=== PATIENT | male | born 1965 | race Caucasian/White ===

== ENCOUNTER 2017-10-06 13:13 | Day surgery (SDC) | payer SELFPAY ==
[2017-10-06] VITALS (9 sets, daily range): BP systolic 116–168; BP diastolic 80–105; PULSE 82–107; RESP 16–18; TEMP 36.5–37.1; O2SAT 93–98; BMI 24.3
--- NOTE | 2017-10-06 14:04 | ED.VISSUMM ---
- ER Visit Summary Date of Service: 10/06/17 Chief Complaint: Penile pain and swelling History of Present Illness: The patient is a 52 M no senior past medical history other than a prior appendectomy. Prior circumcision. Patient states that he had rough sex with his about 3 days ago. Several hours after he started developing penile pain, swelling, bruising and blistering. He denies any discharge. States he has been as well as 35 years and he knows he has been little to her and think she tomorrow to him. He states it is very painful to touch. He denies any other recent trauma. Or prior history of anything like this. He is on no blood thinners. He did use a condom. Physical Examination: Well-appearing male. Vital signs are stable afebrile. HEENT exam unremarkable. Lungs clear to auscultation. Heart regular rhythm no murmur. Abdomen soft and nontender normal bowel sounds no peritoneal signs. External exam circumcised male very swollen, tender, bruised penile shaft with some clear blistering. The testicles and scrotum are nontender. No masses. There is no discharge. No bleeding. He is moving all 4 extremities. They are neurovascularly intact. Neurologic exam is normal. Test Results: None Emergency Department Course and Treatment: Treated with IV morphine and Zofran. Treatment Plan: I spoke to Dr. Johnson and the patient will go to the OR for repair. Disposition: Discharge Impression: Acute penile pain and swelling secondary to penile fracture This note was generated with [employer] dictation software. It may contain incorrect words, spelling, and punctuation that were not noted in review of the chart prior to signing ED Disposition - Plan for ED Patient: Chief Complaint: Male Pain/Injury Referrals: Care Physician,No Primary [Primary Care Provider] -
[2017-10-06] MEDS: Ondansetron 4 MG/2 ML Vial IV (14:24)
[2017-10-06] MEDS: morphine 8 MG/ML Syringe 6 MG IV (14:24)
[2017-10-06 14:36] LABS: Absolute Lymphocyte Count 2.31 X10^3/ul (0.83-4.51); Absolute Neutrophil Count 8.6 X10^3/uL (2.0-7.7); Basophil# 0.04 X10^3/uL; Basophil% 0.3 % (0-1); Eosinophil# 0.19 X10^3/uL; Eosinophils% 1.6 % (0-5); Hematocrit 42.4 % (40-54); Lymphocyte # 2.31 X10^3/ul (4.0); Lymphocyte % 18.9 % (19-41); Mean Corpuscular Hgb 32.6 pg (27.0-32.0); Mean Corpuscular Volume 98.6 fL (80-94); Mean Platelet Vol. 9.8 fl (6.2-12.0); Monocyte# 1.03 X10^3/uL; Monocyte% 8.4 % (0-10); Neutrophil # 8.62 X10^3/uL (2.7-7.7); Neutrophil % 70.7 % (47-70); Platelet Count 256 K/mm3 (150-450); RBC Distribution Width CV 12.9 % (11.6-14.6); RBC Distribution Width SD 46.1 fl (35.1-43.9); White Blood Count 12.2 K/mm3 (4.4-11.0)
[2017-10-06 14:39] LABS: POSITIVE COUNT NO; POSITIVE DIFFERENTIAL NO; POSITIVE MORPHOLOGY NO
[2017-10-06 14:45] LABS: Anion Gap 8 (5-15); BUN 11 mg/dL (7-18); BUN/Creat Ratio 10.1 RATIO (10-20); Calcium,Total 8.8 mg/dL (8.5-10.1); Chloride 103 mmol/L (98-107); Creatinine, Serum 1.09 mg/dL (0.70-1.30); EST Glomerular Filtration Rate 75 mL/min (>60); Est Glom Filt Rate - Afr Amer 91 mL/min (>60); Estimated Creatinine Clearance 80.93 ml/min; Glucose 101 mg/dL (74-106); Potassium 4.3 mmol/L (3.5-5.1); Sodium Level 140 mmol/L (136-145)
--- NOTE | 2017-10-06 16:53 | PCM.CONS.U ---
Reason for Consult Date of Consultation: 10/06/17 Reason for Consultation: Penile trauma during intercourse History of Present Illness: The patient is a 52 year old male who presented to the emergency room about 2-1/2 days ago described having rough sex with his partner and then after this developed a lot of swelling and pain in the penis and he has a lot of bruising and very tender penis does not want to be examined on exam the penis very swollen I suspect these had a fracture of the penile cavernosal bodies. I recommended we proceed with surgical exploration with a degloving of the penis and repair of injury if found. He understands the risk of developing erectile dysfunction as a result of the trauma from the rough sex is also a risk with the surgery causing erectile dysfunction. He was under the understanding without surgery he also takes a risk of developing erectile dysfunction if there is a rupture to the cavernosal body without having it repaired. After weighing his options he is agreed to undergo surgical exploration degloving of the penis and hopefully repair of a suspected cavernosal injury again I really could not do it good exam because he is super tender. Past Medical History Allergies No Known Allergies Allergy (Verified 10/06/17 13:17) Home Medications: Ambulatory Orders Medication Instructions Recorded NK [NK] 10/06/17 Surgical History: no surgical history Lives: Spouse/ Significant Other Smoking Status: Current every day smoker Tobacco Use: Cigarettes Alcohol: None Drugs: None - *Family History Maternal History Items: No pertinent history Review of Systems Constitutional: Denies: Chills, Fever, Weight Change HEENT: Denies: Head Aches, Sinus Congestion, Sinus Drainage Cardiovascular: Denies: Chest Pain, Palpitations Respiratory: Denies: Cough, Shortness of breath at rest, Sputum production Gastrointestinal: Denies: Abdominal Pain, Nausea, Vomiting Genitourinary: Denies: Dysuria Musculoskeletal: Denies: Joint Pain, Joint Tenderness Skin: Denies: Rash, Wounds Neurological: Denies: Numbness, Tingling, Focal weakness Psychiatric: Denies: Anxiety, Depression, Homicidal Ideations, Suicidal Ideations Hematologic/ Lymphatic: Denies: Easy Bruising, Easy Bleeding Physical Exam - Physical Exam Vital Signs Temp 98.1 F 10/06/17 13:14 Pulse 84 10/06/17 14:41 Resp 16 10/06/17 14:41 BP 145/97 H 10/06/17 14:41 Pulse Ox 97 10/06/17 14:41 Intake & Output 10/04/17 10/05/17 10/06/17 23:59 23:59 23:59 Weight: 77.111 kg General: Alert, Oriented x3 HEENT: Atraumatic Oral: Moist Mucosa Neck: Supple Lungs: Normal air movement Cardiovascular: Regular rate Abdomen: Soft, Obese Rectal: Exam deferred Penis: Circumcised, - - Penis is swollen and very tender and ecchymotic with bruising Groin: No hernia Extremities: No clubbing, No cyanosis, No edema Skin: No rashes Laboratory Tests Past 24 Hrs 10/06/17 10/06/17 14:20 14:20 WBC 12.2 H RBC 4.30 L Hgb 14.0 Hct 42.4 MCV 98.6 H MCH 32.6 H MCHC 33.0 RDW 12.9 RDW Differential 46.1 H Plt Count 256 MPV 9.8 Immature Gran % (Auto) 0.100 Neut % (Auto) 70.7 H Lymph % (Auto) 18.9 L [place] % (Auto) 8.4 Eos % (Auto) 1.6 Baso % (Auto) 0.3 Absolute Neuts (auto) 8.6 H Absolute Lymphs (auto) 2.31 Total Counted Not Reportable Sodium 140 Potassium 4.3 Chloride 103 Carbon Dioxide 29.0 Anion Gap 8 BUN 11 Creatinine 1.09 Estim Creat Clear Calc 80.93 Est GFR (MDRD) Af Amer 91 Est GFR (MDRD) Non-Af 75 BUN/Creatinine Ratio 10.1 Glucose 101 Calcium 8.8 Assessment/Plan 52-year-old male with suspected penile fracture penile injury during intercourse planted taken today to surgery for exploration degloving and hopefully repair of cavernosal injury if discovered. He will be discharged home and he will follow-up in the office after the procedure.
[2017-10-06] MEDS: Tamsulosin HCl 0.4 MG Capsule 1.6 MG PO (17:30)
[2017-10-06] MEDS: Cefazolin 2 GM in 0.9% Normal Saline 100 ML IV (18:04)
--- NOTE | 2017-10-06 18:04 | PCM.DC.URO ---
Discharge Diet: Light diet - advance as tolerated Return to work on:: 10/18/17 May shower in (days): 1 May resume sexual activity in: - - NO intercourse Call your doctor if your incision/area has: Continuous Slow Oozing, Sudden Increased Bleeding, Increased Pain/ Swelling, Increased Redness, Foul Smelling Discharge, Swelling at the incision site Suture Line Care: Avoid Pulling/Pushing, Avoid Pinching/Bending Allergies/Adverse Reactions: Allergies No Known Allergies Allergy (Verified 10/06/17 13:17) Medications to take at Discharge Cephalexin [Keflex] 500 mg PO TID #15 cap 10/06/17 Hydrocodone/Acetaminophen [[place] 5-325 Tablet] 1 ea PO Q4H PRN PRN 5 Days #20 tab 10/06/17 The following prescriptions were given: Hydrocodone/Acetaminophen [[place] 5-325 Tablet] 1 ea PO Q4H PRN PRN 5 Days #20 tab PRN Reason: Pain Cephalexin [Keflex] 500 mg PO TID #15 cap Primary Care Physician: Care Physician,No Primary [Primary Care Provider] - Test Results: Test results from this visit will be discussed in further detail at your follow-up appointment, if applicable. Please Follow Up With: Woo Johnson MD When: in 2 weeks, please call to make an appointment.
--- NOTE | 2017-10-06 18:41 | PCM.OPRPT ---
Report of Operation Date of Procedure: 10/06/17 Pre-Operative Diagnosis: Penile trauma and swollen penis suspected penile fracture Post-Operative Diagnosis: Same, no penile fracture Surgery/Procedure Performed:: Exploration of the penis Description of Surgical Findings:: 52-year-old male who described having's rough sex several days ago penis became extremely swollen some ecchymosis on the side of the penis shaft there was concern for fracture the penis so recommended we do exploration. Patient taken back to the operating room after smooth induction of general anesthesia the penis and testicles were prepped and draped in usual sterile fashion, made a circumcision incision dissected down to the tunica and and peeled the skin off the penis to do a degloving inspected the spongiosa tissue where the urethra was put a catheter and there is no injury or trauma here inspected the to continue the 2 tunica bodies and both of them were intact with no trauma fracture injury no hematoma. After expiration was completed then I squeeze out some of the edema and the skin really attach the force of the shaft of the circumcision line he has had a prior circumcision with running suture with chromic after the that was placed in a wrap the penis with gauze and anesthetic is currently being reversed he can follow-up in the office for checkup and will give instructions to the and the family. Type of Anesthesia:: General - Admit VTE Documentation VTE Present on Admission: No VTE Mechan Device Prophylaxis: SCD's
[2017-10-06] MEDS: HYDROcodone Bitartrate/Apap 5/325 Tablet PO (19:52)
== END 2017-10-06 22:26 | disposition home or self-care (01) ==
LOC: ED 14:43 → AC 14:52
PROVIDERS: Emergency Provider Emergency Medicine; Visit Provider Urology
PROC: (CPT 54435; principal; 2017-10-06 09:30)
DX: S39.94XA Unspecified injury of external genitals, initial encounter (principal); X58.XXXA Exposure to other specified factors, initial encounter; Y93.89 Activity, other specified; Y92.9 Unspecified place or not applicable; Y99.8 Other external cause status; F17.210 Nicotine dependence, cigarettes, uncomplicated
CPT/HCPCS: 55899; 80048; 85025; 99284; J7120; A4216; J2405

== ENCOUNTER 2017-10-12 22:32 | Observation (INO) | payer SELFPAY ==
[2017-10-12 22:34] VITALS: BP 120/75; PULSE 117; RESP 18; TEMP 35.8; O2SAT 98; BMI 22.8
--- NOTE | 2017-10-12 23:14 | EKG12_ITS ---
Test Reason : CELLULITIS Blood Pressure : / mmHG Vent. Rate : 104 BPM Atrial Rate : 104 BPM P-R Int : 130 ms QRS Dur : 090 ms QT Int : 354 ms P-R-T Axes : 070 083 059 degrees QTc Int : 465 ms Sinus tachycardia Otherwise normal ECG Confirmed by RICK GRIFFIN ([id number]), manuscript editor LAUREN WILSON ([id number]) on 10/19/2017 2:02:56 PM Referred By: SRIRAM Confirmed By:RICK GRIFFIN
--- NOTE | 2017-10-12 23:15 | ED.VISSUMM ---
- ER Visit Summary Date of Service: 10/12/17 Chief Complaint: Concern for penis infection History of Present Illness: The patient is a 52 M who presents for concern for a penis infection. 1 week ago patient began having swelling and bruising with pain to his penis. He was seen 2 days later, with concern for possible penile fracture from rough sex with his . He went to surgery, and urology found no evidence of a penile fracture. He has been on Keflex since then and also pain medications. Patient states he is started being able to pee comfortably recently, but today his penis is very swollen and feels like there are insects crawling on it. Last night he put coconut oil and olive oil on it which helped. He was seen at [facility] earlier this week for the same complaint with concern for infection but states he was discharged with instructions to follow-up with Dr. Johnson. Patient denies any fever, abdominal pain or other complaints other than continued penile pain and swelling. He denies any scrotal pain, thigh pain, perineal pain. Patient denies history of diabetes. Physical Examination: Vital signs: afebrile, hemodynamically stable, no hypoxia on room air General: well nourished, well developed, in no distress Skin: warm, dry, no rash, no pallor HEENT: normocephalic and atraumatic; PERRL, EOMI, moist mucous membranes Cardiovascular: regular rate and rhythm without murmurs, no peripheral edema, 2+ pulses all distal extremities Respiratory: No increased work of breathing, lungs are clear to auscultation bilaterally, no rales, rhonchi or wheezing Abdominal: Abdomen is soft, nontender with normoactive bowel sounds, no guarding or rebound, no masses : Leon V stage external genitalia, large edematous swelling to the inferior distal shaft proximal to the glans, sutures in place along the base of the glans without any erythema or induration. Area of ulcerated tissue with granulation tissue over it on the left lateral shaft, possible central necrosis. Penis is diffusely tender. Patient has a few small blood-filled papules along the vasculature of the scrotum. Nontender. No scrotal erythema, induration or swelling. No scrotal tenderness. No abnormalities noted to the perineum or inner thighs. Patient has bilateral mildly tender inguinal lymphadenopathy. No suprapubic tenderness or fullness. MSK: Moves all extremities, no deformities, normal strength Neuro: Awake and alert, oriented ?4. No facial droop, sensation and motor function intact and symmetric Test Results: ] Abnormal Lab Results 10/12/17 10/12/17 10/12/17 23:35 23:35 23:35 WBC 8.3 RBC 4.35 L Hgb 14.7 Hct 42.2 MCV 97.0 H MCH 33.8 H MCHC 34.8 RDW 12.1 RDW Differential 42.5 Plt Count 412 MPV 8.7 Immature Gran % (Auto) 0.100 Neut % (Auto) 54.1 Lymph % (Auto) 31.3 [place] % (Auto) 8.7 Eos % (Auto) 4.6 Baso % (Auto) 1.2 H Absolute Neuts (auto) 4.5 Absolute Lymphs (auto) 2.58 Total Counted Not Reportable PT 13.2 INR 1.0 APTT 29.7 Sodium 140 Potassium 3.7 Chloride 103 Carbon Dioxide 29.0 Anion Gap 8 BUN 16 Creatinine 1.26 Estim Creat Clear Calc 69.43 Est GFR (MDRD) Af Amer 77 Est GFR (MDRD) Non-Af 64 BUN/Creatinine Ratio 12.7 Glucose 126 H Lactic Acid Calcium 8.6 Total Bilirubin 0.20 AST 19 ALT 23 Alkaline Phosphatase 65 Total Protein 7.5 Albumin 3.3 Globulin 4.2 Albumin/Globulin Ratio 0.8 L Urine Color Urine Clarity Urine pH Ur Specific [place] Urine Protein Urine Glucose (UA) Urine Ketones Urine Occult Blood Urine Nitrite Urine Bilirubin Urine Urobilinogen Ur Leukocyte Esterase Urine RBC Urine WBC Ur Squamous Epith Cells Urine Bacteria Hyaline Casts Urine Mucus 10/12/17 10/13/17 23:35 00:34 WBC RBC Hgb Hct MCV MCH MCHC RDW RDW Differential Plt Count MPV Immature Gran % (Auto) Neut % (Auto) Lymph % (Auto) [place] % (Auto) Eos % (Auto) Baso % (Auto) Absolute Neuts (auto) Absolute Lymphs (auto) Total Counted PT INR APTT Sodium Potassium Chloride Carbon Dioxide Anion Gap BUN Creatinine Estim Creat Clear Calc Est GFR (MDRD) Af Amer Est GFR (MDRD) Non-Af BUN/Creatinine Ratio Glucose Lactic Acid 2.0 Calcium Total Bilirubin AST ALT Alkaline Phosphatase Total Protein Albumin Globulin Albumin/Globulin Ratio Urine Color Yellow Urine Clarity Clear Urine pH 6.5 Ur Specific [place] 1.020 Urine Protein 15 H Urine Glucose (UA) Normal Urine Ketones 5 H Urine Occult Blood Negative Urine Nitrite Negative Urine Bilirubin Negative Urine Urobilinogen Normal Ur Leukocyte Esterase 25 H Urine RBC 0 SEEN Urine WBC 0-5 SEEN Ur Squamous Epith Cells 0-5 SEEN Urine Bacteria 0 SEEN Hyaline Casts 0-5 SEEN Urine Mucus 1+ Clinical Impression(s) from Imaging Studies Chest X-Ray 10/12/17 23:20 IMPRESSION: Probable COPD without acute cardiopulmonary disease. Electronically Signed: Luis Abreu DO at 23:29 EDT Tel [phone], Service support , Medications Given Sodium Chloride () 1,000 mls @ 250 mls/hr IV .Q4H BOONE Last Admin: 10/13/17 01:43 Dose: 250 mls/hr Admin: 10/12/17 23:50 Dose: 250 mls/hr Discontinued Medications Ceftriaxone Sodium (Rocephin) 1 gm in 50 mls @ 100 mls/hr IV X1 ONE Stop: 10/13/17 01:46 Last Admin: 10/13/17 01:42 Dose: 100 mls/hr Ibuprofen (Motrin) 800 mg PO X1 ONE Stop: 10/13/17 00:37 Last Admin: 10/13/17 00:44 Dose: 800 mg Morphine Sulfate () 4 mg IV X1 ONE Stop: 10/12/17 23:16 Last Admin: 10/12/17 23:51 Dose: 4 mg Ondansetron HCl (Zofran) 4 mg IV X1 ONE Stop: 10/12/17 23:16 Last Admin: 10/12/17 23:50 Dose: 4 mg Emergency Department Course and Treatment: Patient presents for worsening of penile symptoms 1 week after initial bruising and swelling, concerned that he has an infection. Patient does have significant tenderness and areas of ulceration that look like granulation tissue, one with a possibly necrotic center. Sepsis workup was performed and blood cultures were obtained. CBC showed no leukocytosis. BMP was unremarkable, urinalysis negative for infection. Lactate was elevated at 2.0. Patient did not meet SIRS criteria and the potential infection seemed isolated to the penis. Thus patient was not treated per sepsis protocol. Chest x-ray showed no acute changes. Patient was given more morphine and Zofran for symptomatically relief as well as IV hydration. On reevaluation pain was well-controlled and his heart rate had improved. He was discussed with Dr. Johnson regarding his worsening of his symptoms, and it was determined patient would be admitted for IV antibiotics and further consultation with urology and possibly infectious disease. Patient was discussed with the hospitalist for admission. Given the location of patient's complaint and the possible penile infection with the area of central necrosis, coverage was broadened to cover patient for necrotizing fasciitis. Patient agreed with admission and symptoms were improved at time of reevaluation. Treatment Plan: [] Disposition: [] Impression: Penile pain with concern for infection This note was generated with [employer] dictation software. It may contain incorrect words, spelling, and punctuation that were not noted in review of the chart prior to signing ED Disposition - Plan for ED Patient: Chief Complaint: Cellulitis Referrals: Care Physician,No Primary [Primary Care Provider] -
--- NOTE | 2017-10-12 23:19 | ED.DCSUM_ITS ---
- ER Visit Summary Date of Service: 10/12/17 Chief Complaint: Concern for penis infection History of Present Illness: The patient is a 52 M who presents for concern for a penis infection. 1 week ago patient began having swelling and bruising with pain to his penis. He was seen 2 days later, with concern for possible penile fracture from rough sex with his . He went to surgery, and urology found no evidence of a penile fracture. He has been on Keflex since then and also pain medications. Patient states he is started being able to pee comfortably recently, but today his penis is very swollen and feels like there are insects crawling on it. Last night he put coconut oil and olive oil on it which helped. He was seen at [facility] earlier this week for the same complaint with concern for infection but states he was discharged with instructions to follow-up with Dr. Johnson. Patient denies any fever, abdominal pain or other complaints other than continued penile pain and swelling. He denies any scrotal pain, thigh pain, perineal pain. Patient denies history of diabetes. Physical Examination: Vital signs: afebrile, hemodynamically stable, no hypoxia on room air General: well nourished, well developed, in no distress Skin: warm, dry, no rash, no pallor HEENT: normocephalic and atraumatic; PERRL, EOMI, moist mucous membranes Cardiovascular: regular rate and rhythm without murmurs, no peripheral edema, 2 + pulses all distal extremities Respiratory: No increased work of breathing, lungs are clear to auscultation bilaterally, no rales, rhonchi or wheezing Abdominal: Abdomen is soft, nontender with normoactive bowel sounds, no guarding or rebound, no masses : Leon V stage external genitalia, large edematous swelling to the inferior distal shaft proximal to the glans, sutures in place along the base of the glans without any erythema or induration. Area of ulcerated tissue with granulation tissue over it on the left lateral shaft, possible central necrosis. Penis is diffusely tender. Patient has a few small blood-filled papules along the vasculature of the scrotum. Nontender. No scrotal erythema, induration or swelling. No scrotal tenderness. No abnormalities noted to the perineum or inner thighs. Patient has bilateral mildly tender inguinal lymphadenopathy. No suprapubic tenderness or fullness. MSK: Moves all extremities, no deformities, normal strength Neuro: Awake and alert, oriented ?4. No facial droop, sensation and motor function intact and symmetric Test Results: ] Abnormal Lab Results 10/12/17 10/12/17 10/12/17 23:35 23:35 23:35 WBC 8.3 RBC 4.35 L Hgb 14.7 Hct 42.2 MCV 97.0 H MCH 33.8 H MCHC 34.8 RDW 12.1 RDW Differential 42.5 Plt Count 412 MPV 8.7 Immature Gran % (Auto) 0.100 Neut % (Auto) 54.1 Lymph % (Auto) 31.3 [place] % (Auto) 8.7 Eos % (Auto) 4.6 Baso % (Auto) 1.2 H Absolute Neuts (auto) 4.5 Absolute Lymphs (auto) 2.58 Total Counted Not Reportable PT 13.2 INR 1.0 APTT 29.7 Sodium 140 Potassium 3.7 Chloride 103 Carbon Dioxide 29.0 Anion Gap 8 BUN 16 Creatinine 1.26 Estim Creat Clear Calc 69.43 Est GFR (MDRD) Af Amer 77 Est GFR (MDRD) Non-Af 64 BUN/Creatinine Ratio 12.7 Glucose 126 H Lactic Acid Calcium 8.6 Total Bilirubin 0.20 AST 19 ALT 23 Alkaline Phosphatase 65 Total Protein 7.5 Albumin 3.3 Globulin 4.2 Albumin/Globulin Ratio 0.8 L Urine Color Urine Clarity Urine pH Ur Specific [place] Urine Protein Urine Glucose (UA) Urine Ketones Urine Occult Blood Urine Nitrite Urine Bilirubin Urine Urobilinogen Ur Leukocyte Esterase Urine RBC Urine WBC Ur Squamous Epith Cells Urine Bacteria Hyaline Casts Urine Mucus 10/12/17 10/13/17 23:35 00:34 WBC RBC Hgb Hct MCV MCH MCHC RDW RDW Differential Plt Count MPV Immature Gran % (Auto) Neut % (Auto) Lymph % (Auto) [place] % (Auto) Eos % (Auto) Baso % (Auto) Absolute Neuts (auto) Absolute Lymphs (auto) Total Counted PT INR APTT Sodium Potassium Chloride Carbon Dioxide Anion Gap BUN Creatinine Estim Creat Clear Calc Est GFR (MDRD) Af Amer Est GFR (MDRD) Non-Af BUN/Creatinine Ratio Glucose Lactic Acid 2.0 Calcium Total Bilirubin AST ALT Alkaline Phosphatase Total Protein Albumin Globulin Albumin/Globulin Ratio Urine Color Yellow Urine Clarity Clear Urine pH 6.5 Ur Specific [place] 1.020 Urine Protein 15 H Urine Glucose (UA) Normal Urine Ketones 5 H Urine Occult Blood Negative Urine Nitrite Negative Urine Bilirubin Negative Urine Urobilinogen Normal Ur Leukocyte Esterase 25 H Urine RBC 0 SEEN Urine WBC 0-5 SEEN Ur Squamous Epith Cells 0-5 SEEN Urine Bacteria 0 SEEN Hyaline Casts 0-5 SEEN Urine Mucus 1+ Clinical Impression(s) from Imaging Studies Chest X-Ray 10/12/17 23:20 IMPRESSION: Probable COPD without acute cardiopulmonary disease. Electronically Signed: Luis Abreu DO at 23:29 EDT Tel [phone], Service support , Medications Given Sodium Chloride () 1,000 mls @ 250 mls/hr IV .Q4H BOONE Last Admin: 10/13/17 01:43 Dose: 250 mls/hr Admin: 10/12/17 23:50 Dose: 250 mls/hr Discontinued Medications Ceftriaxone Sodium (Rocephin) 1 gm in 50 mls @ 100 mls/hr IV X1 ONE Stop: 10/13/17 01:46 Last Admin: 10/13/17 01:42 Dose: 100 mls/hr Ibuprofen (Motrin) 800 mg PO X1 ONE Stop: 10/13/17 00:37 Last Admin: 10/13/17 00:44 Dose: 800 mg Morphine Sulfate () 4 mg IV X1 ONE Stop: 10/12/17 23:16 Last Admin: 10/12/17 23:51 Dose: 4 mg Ondansetron HCl (Zofran) 4 mg IV X1 ONE Stop: 10/12/17 23:16 Last Admin: 10/12/17 23:50 Dose: 4 mg Emergency Department Course and Treatment: Patient presents for worsening of penile symptoms 1 week after initial bruising and swelling, concerned that he has an infection. Patient does have significant tenderness and areas of ulceration that look like granulation tissue, one with a possibly necrotic center. Sepsis workup was performed and blood cultures were obtained. CBC showed no leukocytosis. BMP was unremarkable, urinalysis negative for infection. Lactate was elevated at 2.0. Patient did not meet SIRS criteria and the potential infection seemed isolated to the penis. Thus patient was not treated per sepsis protocol. Chest x-ray showed no acute changes. Patient was given more morphine and Zofran for symptomatically relief as well as IV hydration. On reevaluation pain was well-controlled and his heart rate had improved. He was discussed with Dr. Johnson regarding his worsening of his symptoms, and it was determined patient would be admitted for IV antibiotics and further consultation with urology and possibly infectious disease. Patient was discussed with the hospitalist for admission. Given the location of patient 's complaint and the possible penile infection with the area of central necrosis , coverage was broadened to cover patient for necrotizing fasciitis. Patient agreed with admission and symptoms were improved at time of reevaluation. Treatment Plan: [] Disposition: [] Impression: Penile pain with concern for infection This note was generated with [employer] dictation software. It may contain incorrect words, spelling, and punctuation that were not noted in review of the chart prior to signing ED Disposition - Plan for ED Patient: Chief Complaint: Cellulitis Referrals: Care Physician,No Primary [Primary Care Provider] -
--- NOTE | 2017-10-12 23:19 | NURSING ---
NO OLD EKG
[2017-10-12 23:47] LABS: Absolute Lymphocyte Count 2.58 X10^3/ul (0.83-4.51); Absolute Neutrophil Count 4.5 X10^3/uL (2.0-7.7); Basophil% 1.2 % (0-1); Eosinophil# 0.38 X10^3/uL; Eosinophils% 4.6 % (0-5); Hematocrit 42.2 % (40-54); Hemoglobin 14.7 g/dl (13.0-16.5); Lymphocyte # 2.58 X10^3/ul (4.0); Lymphocyte % 31.3 % (19-41); Mean Corp Hgb Conc 34.8 g/gl (32-36); Mean Corpuscular Hgb 33.8 pg (27.0-32.0); Mean Platelet Vol. 8.7 fl (6.2-12.0); Monocyte# 0.72 X10^3/uL; Monocyte% 8.7 % (0-10); Neutrophil # 4.46 X10^3/uL (2.7-7.7); Neutrophil % 54.1 % (47-70); Platelet Count 412 K/mm3 (150-450); RBC Distribution Width CV 12.1 % (11.6-14.6); RBC Distribution Width SD 42.5 fl (35.1-43.9); Red Blood Count 4.35 M/mm3 (4.6-6.2); White Blood Count 8.3 K/mm3 (4.4-11.0)
[2017-10-12] MEDS: Ondansetron 4 MG/2 ML Vial IV (23:50)
[2017-10-12] MEDS: 0.9% Normal Saline 1,000 ML 250 ML IV (23:50)
[2017-10-12] MEDS: Morphine 4 MG/ML Syringe IV (23:51)
[2017-10-12 23:53] LABS: POSITIVE COUNT NO; POSITIVE DIFFERENTIAL NO; POSITIVE MORPHOLOGY NO
[2017-10-12 23:55] LABS: Prothrombin Time (Protime)PT. 13.2 SECONDS (11.7-14.9)
[2017-10-12 23:56] LABS: Partial Thromboplast Time 29.7 Seconds (24.1-36.2)
[2017-10-12 23:57] VITALS: TEMP 36.8
[2017-10-13] VITALS (8 sets, daily range): BP systolic 134–153; BP diastolic 90–104; PULSE 86–99; RESP 13–18; TEMP 36.6–36.9; O2SAT 96–98; BMI 22.9; BMI 23.0
[2017-10-13 00:03] LABS: ALB/GLOB Ratio 0.8 RATIO (0.9-2.4); AST(SGOT) 19 U/L (15-37); Alanine Aminotransfer ALT/SGPT 23 U/L (16-61); Albumin, Serum 3.3 g/dL (3.2-5.0); Alkaline Phosphatase 65 U/L (45-117); Anion Gap 8 (5-15); BUN 16 mg/dL (7-18); BUN/Creat Ratio 12.7 RATIO (10-20); Calcium,Total 8.6 mg/dL (8.5-10.1); Chloride 103 mmol/L (98-107); Creatinine, Serum 1.26 mg/dL (0.70-1.30); EST Glomerular Filtration Rate 64 mL/min (>60); Est Glom Filt Rate - Afr Amer 77 mL/min (>60); Estimated Creatinine Clearance 69.43 ml/min; Globulin 4.2 g/dL (2.2-4.2); Glucose 126 mg/dL (74-106); Potassium 3.7 mmol/L (3.5-5.1); Protein, Total 7.5 g/dL (6.4-8.2); Sodium Level 140 mmol/L (136-145)
--- NOTE | 2017-10-13 00:28 | ED.RN ---
PT LACTIC 2.0. DR. BHATIA INFORMED.
[2017-10-13 00:37] LABS: Bacteria 0 SEEN /hpf (None Seen); Red Blood Cells-Urine 0 SEEN /hpf (0-5)
[2017-10-13 00:39] LABS: Color, Urine Yellow (Yellow); Glucose, Dipstick Normal (Normal); Ketone-Dipstick 5 mg/dl (Negative); Leukocyte Esterase-Dipstick 25 /ul (Negative); Nitrite-Dipstick Negative (Negative); Occult Blood-Urine Negative /ul (Negative); Protein-Dipstick 15 mg/dl (Negative); Urine Bilirubin Dipstick Negative (Negative); Urine Clarity Clear (Clear); Urine Urobilinogen Normal (Normal); Urine pH 6.5 (5.0 - 8.0)
[2017-10-13 00:44] LABS: Hyaline Cast 0-5 SEEN /lpf (0-5); Mucous, Urine 1+ /hpf (<or=2+); Squamous Epithelial Cells - UA 0-5 SEEN /hpf (0-5); White Blood Cells 0-5 SEEN /hpf (0-5)
[2017-10-13] MEDS: Ibuprofen 200 MG Tablet 800 MG PO (00:44)
[2017-10-13] MEDS: Ceftriaxone 1 GM/50 ML BAG IV (01:42)
[2017-10-13] MEDS: 0.9% Normal Saline 1,000 ML 250 ML IV (01:43)
--- NOTE | 2017-10-13 01:55 | PCM.HP.STD ---
Problem List (1) Penile swelling Status: Acute (2) Hypertension Status: Chronic History of Present Illness Date of Admission: 10/13/17 Chief Complaint: penile swelling x 9 days The patient is a 52 year old M with a significant history of hypertension who presents because of progressive swelling of his penis x 10 days. Patient originally presented at the emergency department on 10/06/2017 with penile swelling. His penile swelling at that time was attributed to rough sex with his partner. Penile fracture was suspected. However surgical exploration by urologist, Dr. Johnson did not show that patient had a penile fracture. Patient was subsequently discharged home. Patient reported that he was seen at [facility] about 2 days ago for the same condition; and his penile swelling was attributed to surgical changes after his penile exploration. Because of persistent pain and because of increased swelling with necrotic areas of the penis patient presented again to the emergency department. Emergency department doctor reported a conversation with Dr. Johnson. Per emergency department doctor, Dr. Johnson suggested Rocephin therapy, possible ID consult and further urology evaluation in a.m. 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 . Past Medical History Past Medical History (Chronic Problems): Chronic Problems Hypertension (Chronic) Allergies No Known Allergies Allergy (Verified 10/12/17 22:37) Home Medications: Ambulatory Orders Medication Instructions Recorded NK [NK] 10/12/17 Surgical History: - - Penile exploration; and previous scar tissue removal from urethra. Psychiatric History: No pertinent psych hx Lives: Spouse/ Significant Other Smoking Status: Current every day smoker - Smokes cigarettes. Alcohol: Occasional - *Family History Maternal History Items: No pertinent history Review of Systems Constitutional: Reports: Night Sweats. Denies: Chills, Fever, Weight Change HEENT: Denies: Head Aches, Sinus Congestion, Sinus Drainage Cardiovascular: Denies: Chest Pain, Palpitations Respiratory: Denies: Cough, Shortness of breath at rest, Sputum production Gastrointestinal: Denies: Abdominal Pain, Nausea, Vomiting Genitourinary: Denies: Dysuria Musculoskeletal: Denies: Joint Pain, Joint Tenderness Skin: Reports: Wounds - Of penis. Denies: Rash Neurological: Denies: Numbness, Tingling, Focal weakness Psychiatric: Denies: Anxiety, Depression, Homicidal Ideations, Suicidal Ideations Hematologic/ Lymphatic: Reports: Adenopathy - Bilateral inguinal lymphadenopathy VTE Information - Inpt Only VTE Present on Admission: No VTE Mechan Device Prophylaxis: None VTE Pharm Prophylaxis ordered?: Yes Patient Problems: Active and Suspected Problems Penile swelling (Acute) - Physical Exam General: Alert, Oriented x3, Cooperative HEENT: Atraumatic, PERRLA, EOMI, Normocephalic Neck: Supple, No JVD, Negative Carotid Bruits Lungs: Wheezes Cardiovascular: Regular rate, No murmurs Abdomen: Bowel Sounds Present, Soft, Non Tender, - - Penile swelling with multiple necrotic wounds. Extremities: No edema, Capillary Refill Less than 3 Seconds Skin: - - Swelling; and multiple necrotic wound on penis. Musculoskeletal: No Tenderness to Palpation of Joints or Extremities Lymphatic: Inguinal Adenopathy Neurological: Cranial nerves II-XII grossly intact Psych/Mental Status: Normal Affect Vital Signs Temp Pulse Resp BP Pulse Ox 98.2 F 93 16 134/90 H 97 10/12/17 23:57 10/13/17 01:28 10/13/17 01:28 10/13/17 01:28 10/13/17 01:28 Oxygen Delivery Method Room Air Weight: 72.4 kg Body Mass Index (BMI) 22.8 Laboratory Tests Past 24 Hrs 10/12/17 10/12/17 10/12/17 23:35 23:35 23:35 WBC 8.3 RBC 4.35 L Hgb 14.7 Hct 42.2 MCV 97.0 H MCH 33.8 H MCHC 34.8 RDW 12.1 RDW Differential 42.5 Plt Count 412 MPV 8.7 Immature Gran % (Auto) 0.100 Neut % (Auto) 54.1 Lymph % (Auto) 31.3 [place] % (Auto) 8.7 Eos % (Auto) 4.6 Baso % (Auto) 1.2 H Absolute Neuts (auto) 4.5 Absolute Lymphs (auto) 2.58 Total Counted Not Reportable PT 13.2 INR 1.0 APTT 29.7 Sodium 140 Potassium 3.7 Chloride 103 Carbon Dioxide 29.0 Anion Gap 8 BUN 16 Creatinine 1.26 Estim Creat Clear Calc 69.43 Est GFR (MDRD) Af Amer 77 Est GFR (MDRD) Non-Af 64 BUN/Creatinine Ratio 12.7 Glucose 126 H Lactic Acid Calcium 8.6 Total Bilirubin 0.20 AST 19 ALT 23 Alkaline Phosphatase 65 Total Protein 7.5 Albumin 3.3 Globulin 4.2 Albumin/Globulin Ratio 0.8 L Urine Color Urine Clarity Urine pH Ur Specific Amonate Urine Protein Urine Glucose (UA) Urine Ketones Urine Occult Blood Urine Nitrite Urine Bilirubin Urine Urobilinogen Ur Leukocyte Esterase Urine RBC Urine WBC Ur Squamous Epith Cells Urine Bacteria Hyaline Casts Urine Mucus 10/12/17 10/13/17 23:35 00:34 WBC RBC Hgb Hct MCV MCH MCHC RDW RDW Differential Plt Count MPV Immature Gran % (Auto) Neut % (Auto) Lymph % (Auto) [place] % (Auto) Eos % (Auto) Baso % (Auto) Absolute Neuts (auto) Absolute Lymphs (auto) Total Counted PT INR APTT Sodium Potassium Chloride Carbon Dioxide Anion Gap BUN Creatinine Estim Creat Clear Calc Est GFR (MDRD) Af Amer Est GFR (MDRD) Non-Af BUN/Creatinine Ratio Glucose Lactic Acid 2.0 Calcium Total Bilirubin AST ALT Alkaline Phosphatase Total Protein Albumin Globulin Albumin/Globulin Ratio Urine Color Yellow Urine Clarity Clear Urine pH 6.5 Ur Specific Amonate 1.020 Urine Protein 15 H Urine Glucose (UA) Normal Urine Ketones 5 H Urine Occult Blood Negative Urine Nitrite Negative Urine Bilirubin Negative Urine Urobilinogen Normal Ur Leukocyte Esterase 25 H Urine RBC 0 SEEN Urine WBC 0-5 SEEN Ur Squamous Epith Cells 0-5 SEEN Urine Bacteria 0 SEEN Hyaline Casts 0-5 SEEN Urine Mucus 1+ Assessment/Plan All Active Problems Penile swelling (Acute) The patient is a 52 year old M with a significant history; tobacco abuse; and hypertension who presents with progressive swelling of his penis; tenderness and necrotic wound of penis. Penile Swelling ?Amanda gangrene Reviewed labs showed no leukocytosis. Some increase in basophils. Lactic acid of 2.0; high normal. Received Rocephin at emergency department. Vancomycin and Zosyn ordered. Oxycodone as needed for pain. Lactated Ringer is a 75 ML's per hour. ID consult for further evaluation and to optimize management. Urology consult. Trend CBC. Tobacco abuse Patient smokes cigarettes Was counseled. Refused nicotine patch. Hypertension Blood pressure on admission was above goal. Trend blood pressure. As needed hydralazine for now. Chronic bronchitis Wheezing on examination Likely due to smoking As needed albuterol ordered. DVT prophylaxis Subcutaneous heparin. Code Visit OBSV E&M: 91709 Initial observation care L3
[2017-10-13 03:41] LABS: Reflex Lactate? Y
--- NOTE | 2017-10-13 03:50 | PCM.RX.CS ---
Consult Pharmacy has been consulted to manage selected antiobiotic: Vancomycin Type of Consult: New start Suspected Infection: Skin/Soft tissue Prior Doses of Antibiotics Received/Current Regimen: Medications Piperacillin Sod/Tazobactam Sod (Zosyn) 3.375 gm in 50 mls @ 12.5 mls/hr IV Q8 BOONE Vancomycin HCl (Vancomycin) 1,000 mg in 200 mls @ 200 mls/hr IV X1 ONE Stop: 10/13/17 08:59 Vancomycin HCl () 500 mg in 100 mls @ 100 mls/hr IV Q12H BOONE Labs: Sodium 140 mmol/L (136-145) 10/12/17 23:35 Potassium 3.7 mmol/L (3.5-5.1) 10/12/17 23:35 Chloride 103 mmol/L (98-107) 10/12/17 23:35 Carbon Dioxide 29.0 mmol/L (21.0-32.0) 10/12/17 23:35 Anion Gap 8 (5-15) 10/12/17 23:35 BUN 16 mg/dL (7-18) 10/12/17 23:35 Creatinine 1.26 mg/dL (0.70-1.30) 10/12/17 23:35 Est GFR (MDRD) Af Amer 77 mL/min (>60) 10/12/17 23:35 Est GFR (MDRD) Non-Af 64 mL/min (>60) 10/12/17 23:35 BUN/Creatinine Ratio 12.7 RATIO (10-20) 10/12/17 23:35 Glucose 126 mg/dL (74-106) H 10/12/17 23:35 Estimated Creatinine Clearance: 69.43 Goal Trough: 10-15 mcg/mL Pharmacy Plan for Drug Dosing: Pharmacy Service will continue to monitor and adjust dosing as required. Follow-Up Labs: Trough Vancomycin Labs to be done on [date and time ordered]: 10/15 @ 0800
[2017-10-13] MEDS: Piperacil/Tazobactam 3.375 GM/50 ML ML IV (04:11)
[2017-10-13] MEDS: Lactated Ringers 1,000 ML 75 ML IV (04:11)
[2017-10-13 04:14] LABS: Absolute Lymphocyte Count 3.11 X10^3/ul (0.83-4.51); Absolute Neutrophil Count 3.6 X10^3/uL (2.0-7.7); Basophil# 0.09 X10^3/uL; Basophil% 1.2 % (0-1); Eosinophil# 0.37 X10^3/uL; Eosinophils% 4.7 % (0-5); Hematocrit 40.1 % (40-54); Hemoglobin 13.5 g/dl (13.0-16.5); Lymphocyte # 3.11 X10^3/ul (4.0); Lymphocyte % 39.8 % (19-41); Mean Corp Hgb Conc 33.7 g/gl (32-36); Mean Corpuscular Hgb 32.8 pg (27.0-32.0); Mean Corpuscular Volume 97.6 fL (80-94); Mean Platelet Vol. 8.6 fl (6.2-12.0); Monocyte# 0.68 X10^3/uL; Monocyte% 8.7 % (0-10); Neutrophil # 3.56 X10^3/uL (2.7-7.7); Neutrophil % 45.5 % (47-70); Platelet Count 383 K/mm3 (150-450); RBC Distribution Width CV 12.2 % (11.6-14.6); RBC Distribution Width SD 42.9 fl (35.1-43.9); Red Blood Count 4.11 M/mm3 (4.6-6.2); White Blood Count 7.8 K/mm3 (4.4-11.0)
[2017-10-13] MEDS: oxyCODONE 5 MG Tablet PO ×2 (04:15→08:22)
[2017-10-13 04:29] LABS: POSITIVE COUNT NO; POSITIVE DIFFERENTIAL NO; POSITIVE MORPHOLOGY NO
[2017-10-13 04:45] LABS: Lactic Acid 0.8 mmol/L (0.4-2.0)
[2017-10-13] MEDS: Heparin Injection (Vial) 5,000 UNIT/ML VIAL 5000 UNIT SC (06:52)
[2017-10-13 07:05] LABS: Bedside Glucose 105 mg/dL (70-110)
--- NOTE | 2017-10-13 07:37 | PCM.CONS.U ---
Reason for Consult Date of Consultation: 10/13/17 Reason for Consultation: Penile swelling penis infection History of Present Illness: The patient is a 52 year old male who was camping and then came home he did have intercourse with his supposedly was rough sex however never heard a pop or break or anything during intercourse. He then developed a lot of swelling the penis presented to the emergency room and we took him to surgery for exploration and found no rupture or damage to the cavernosal bodies tunica or the spongiosum bodies. He is now presented to the emergency room once up in [place] and also presented to the emergency room again here in [place]. He has been on antibiotics. He reports having developed a weeping ulcer from the edematous penile shaft, he was then admitted for IV antibiotics. I suspect he has cellulitis of the penile shaft with swelling and edema. We shall need to continue with IV antibiotics he is responding quite well Past Medical History Past Medical History (Chronic Problems): Chronic Problems Hypertension (Chronic) Allergies No Known Allergies Allergy (Verified 10/12/17 22:37) Home Medications: Ambulatory Orders Medication Instructions Recorded Omeprazole [Prilosec] 10 mg PO DAILY 10/13/17 Surgical History: - - Penile exploration; and previous scar tissue removal from urethra. Psychiatric History: No pertinent psych hx Lives: Spouse/ Significant Other Smoking Status: Current every day smoker - Smokes cigarettes. Alcohol: Occasional - *Family History Maternal History Items: No pertinent history Review of Systems Constitutional: Denies: Chills, Fever, Weight Change HEENT: Denies: Head Aches, Sinus Congestion, Sinus Drainage Cardiovascular: Denies: Chest Pain, Palpitations Respiratory: Denies: Cough, Shortness of breath at rest, Sputum production Gastrointestinal: Denies: Abdominal Pain, Nausea, Vomiting Genitourinary: Denies: Dysuria Musculoskeletal: Denies: Joint Pain, Joint Tenderness Skin: Denies: Rash, Wounds Neurological: Denies: Numbness, Tingling, Focal weakness Psychiatric: Denies: Anxiety, Depression, Homicidal Ideations, Suicidal Ideations Hematologic/ Lymphatic: Denies: Easy Bruising, Easy Bleeding Physical Exam Objective: On examination the incision line from the exploration is completely intact no breakdown, he does have a dry eschar on the lateral aspect of the penis, swelling and edema from last week is down and the redness from last week is down he does have an eschar over weeping wound is now dry I would recommend we keep this dry and do not pull off the eschar. - Physical Exam Vital Signs Temp 98.4 F 10/13/17 03:14 Pulse 87 10/13/17 03:14 Resp 18 10/13/17 03:14 BP 147/97 H 10/13/17 03:14 Pulse Ox 98 10/13/17 03:14 Intake & Output 10/11/17 10/12/17 10/13/17 23:59 23:59 23:59 Intake Total 150 / 150 Output Total 300 / 300 Balance -150 / -150 Weight: 72.603 kg Intake: Oral 150 / 150 Output: Urine 300 / 300 Comment: On examination the penis is less swollen the last week Laboratory Tests Past 24 Hrs 10/13/17 10/13/17 03:55 03:55 WBC 7.8 RBC 4.11 L Hgb 13.5 Hct 40.1 MCV 97.6 H MCH 32.8 H MCHC 33.7 RDW 12.2 RDW Differential 42.9 Plt Count 383 MPV 8.6 Immature Gran % (Auto) 0.100 Neut % (Auto) 45.5 L Lymph % (Auto) 39.8 [place] % (Auto) 8.7 Eos % (Auto) 4.7 Baso % (Auto) 1.2 H Absolute Neuts (auto) 3.6 Absolute Lymphs (auto) 3.11 Total Counted Not Reportable Lactic Acid 0.8 Assessment/Plan All Active Problems Penile swelling (Acute) 52-year-old male presented somewhat of a complicated case initially thought we was a penile fracture of the sternal to be negative on exploration I think at this point he just has cellulitis of the shaft penis, cause unclear if there is an abrasion or perhaps a spider bite, I do not see a tick or anything unusual, I do not see any obvious sites of the parasite etc. we will continue with IV Zosyn, and once he looks clinically stable we probably can discharge him home with Augmentin. We could consider infectious disease consult.
[2017-10-13] MEDS: Vancomycin IV 1,000 MG/200 ML BAG 200 MG IV (08:22)
--- NOTE | 2017-10-13 10:15 | CASEMGMT ---
Social Work Note Pt is listed as self-pay. SW placed a call to [facility] and left message to see if [facility] will be seeing pt. SW waiting for call back. Leslie Lindsey MECHANICAL ADJUSTER, HOT PIPE GAUGER
--- NOTE | 2017-10-13 10:49 | PCM.HP.ID ---
Problem List (1) Penile swelling Status: Acute Reason for Consult: penile cellulitis Consulted by: Dr. Cedillo History of Present Illness: The patient is a 52 year old M with minimal PMH who went camping, did not notice any bug bites or ticks, came back around 10/03, had sex with female partner that evening. A few hours later noticed bruising on his penis. Thought he saw a small puncture at the site. Bruising spread with some what he calls vesicles. Over the next few days, reports bruising coalesced to some necrosis, associated with severe pain, some redness and swelling. Came to ED here 10/06, taken to OR by Dr. Johsnon for exploration. No fracture seen, sent home on keflex. Had some ongoing drainage, clear/yellow/brownish. No fever, no n/v/d. No joint pain. Over past 2 days, feeling a lot better, drainage resolved, swelling improving. Last night ran out of pain meds and abx and was sent to ED. Started on vanc/zosyn, no new issues this AM. Full ROS performed and neg except as noted above. - Medical History Past Medical History (Chronic Problems): Chronic Problems Hypertension (Chronic) Allergies/Adverse Reactions: Allergies No Known Allergies Allergy (Verified 10/12/17 22:37) Home Medications: Ambulatory Orders Medication Instructions Recorded Omeprazole [Prilosec] 10 mg PO DAILY 10/13/17 - Social History Tobacco Use: cigarettes Vital Signs Temp Pulse Resp BP Pulse Ox 97.8 F 87 18 152/101 H 97 10/13/17 08:27 10/13/17 08:27 10/13/17 08:27 10/13/17 08:27 10/13/17 10:26 Oxygen Delivery Method Room Air Weight: 72.603 kg Body Mass Index (BMI) 22.9 Laboratory Tests Past 24 Hrs 10/13/17 10/13/17 03:55 03:55 WBC 7.8 RBC 4.11 L Hgb 13.5 Hct 40.1 MCV 97.6 H MCH 32.8 H MCHC 33.7 RDW 12.2 RDW Differential 42.9 Plt Count 383 MPV 8.6 Immature Gran % (Auto) 0.100 Neut % (Auto) 45.5 L Lymph % (Auto) 39.8 [place] % (Auto) 8.7 Eos % (Auto) 4.7 Baso % (Auto) 1.2 H Absolute Neuts (auto) 3.6 Absolute Lymphs (auto) 3.11 Total Counted Not Reportable Lactic Acid 0.8 - Other Studies Radiology: [] reviewed Other Studies: [] Route of nutrition/ use of supplements: [] Nutritional Intake: [] IV Site: [] May Catheter: [] - Physical Exam General: Alert, Oriented x3, Cooperative, No apparent distress HEENT: Atraumatic, PERRLA, EOMI Neck: Supple, No Nodes Lungs: Clear to auscultation, Normal air movement Cardiovascular: Regular rate, Regular Rhythm, No murmurs Abdomen: Bowel Sounds Present, Soft, Non Tender, Non-Distended Extremities: No edema Skin: - - Some penis swelling, dry eschar, no drainage or redness IV Site: Peripheral, without redness Musculoskeletal: No Tenderness to Palpation of Joints or Extremities Neurological: Cranial nerves II-XII grossly intact - Assessment/Plan Antibiotics: [] Assessment/Plan: [] Active and Suspected Problems Penile swelling (Acute) Penile cellulitis - Not clear what the original insult was; spider bite is possible. Overall improved from previous per pt. No sign of purulence or erythema at this point. No dysuria. No fever. Normal wbc. Low suspicion for mrsa at this point given improvement on keflex. Will stop vanc. On zosyn. Ok for d/c home on augmentin from my perspective for 7 more day. Will follow, thank you, d/w hospitalist and case resource manager.
[2017-10-13] MEDS: Pantoprazole Sodium 20 MG Tablet PO (11:58)
[2017-10-13 12:05] LABS: Bedside Glucose 115 mg/dL (70-110)
--- NOTE | 2017-10-13 12:40 | PCM.DC ---
- Discharge Diagnoses Current Active Problems: Current Active and Chronic Problems Penile swelling (Acute) Hypertension (Chronic) Reason(s) for Visit for Discharge Instructions: Penile swelling You will use the following diet at home:: Cardiac Your food should be the consistency of: Regular Your liquids should be the consistency of: Regular/Thin Discharge Activity: Return to Normal Activity Additional Instructions: Complete your antibiotics. Follow-up with Dr. Johnson in 2 weeks. Go back to the ED if your penile swelling gets worse or your have worsening redness. Your BP was also high in the hospital. You have been started on a low dose BP medication. Follow-up with your PCP for BP check and re-evaluation in 1 week. Allergies/Adverse Reactions: Allergies No Known Allergies Allergy (Verified 10/12/17 22:37) Medications to take at Discharge Amlodipine [Norvasc] 2.5 mg PO DAILY #30 tab 10/13/17 Amoxicillin/Potassium Clav [Augmentin 875-125 Tablet] 1 ea PO BID #14 tab 10/13/17 Omeprazole [Prilosec] 10 mg PO DAILY 10/13/17 Oxycodone [Oxyir] 5 mg PO Q4H PRN PRN 5 Days #20 tablet 10/13/17 The following prescriptions were given: Oxycodone [Oxyir] 5 mg PO Q4H PRN PRN 5 Days #20 tablet PRN Reason: Moderate Pain (pain scale 4-5) Amlodipine [Norvasc] 2.5 mg PO DAILY #30 tab Amoxicillin/Potassium Clav [Augmentin 875-125 Tablet] 1 ea PO BID #14 tab Primary Care Physician: Care Physician,No Primary [Primary Care Provider] - Please follow up with your Primary Care Physician in: within 2 weeks Test Results: Test results from this visit will be discussed in further detail at your follow-up appointment, if applicable. Please Follow Up With: Woo Johnson MD When: WITHIN 2 WEEKS Proposed Discharge Date: 10/13/17
--- NOTE | 2017-10-13 12:44 | PCM.DC.SUM ---
Discharge Date and Diagnosis Date of Admission: 10/13/17 Date of Discharge: 10/13/17 - Primary Discharge Diagnosis Active and Suspected Problems Penile swelling (Acute) Penile cellulitis - Secondary Discharge Diagnosis Chronic Problems Hypertension (Chronic) Tobacco use disorder Hospital Course and Treatment Imaging Results: Clinical Impression(s) from Imaging Studies Chest X-Ray 10/12/17 23:20 IMPRESSION: Probable COPD without acute cardiopulmonary disease. Electronically Signed: Luis Abreu at 23:29 EDT Tel [phone], Service support , Consultations 10/13/17 03:29 Consult: Onc/Wound/dredge engineer Routine Comment: Reason for Consult:: Penile wound Urology ID Operations: None Procedures: None Summary of Care Provided: The patient is a 52 year old M with past medical history of hypertension who comes in with a 9 day history of penile swelling. Patient had been seen in the emergency room on 10/06/2017 with similar complaints of penile swelling after rough sex with his partner. Penile fracture was suspected, surgical exploration was done by Dr. Johnson that did not reveal cavernosal tunica or spongiosum bodies rupture or damage. Patient was discharged home on antibiotics and pain medication. He subsequently presented to [facility] emergency room and was discharged. He came back to the ED with weeping ulcers and persistently edematous penile shaft. Admitted and managed as penile cellulitis. Urology and infectious disease were consulted. He had an eschar on his penile shaft as well as some blisters on the day of exam as well as erythema and swelling of his penis. His blisters and ulcers were believed to be initiated by a suspected spider bite as patient had gone camping prior to his initial presentation. Patient was recommended to be discharged on oral Augmentin for 1 more week. He was given a script for oxycodone for 5 more days. Discharge Diet: Low fat/ Low Cholesterol, 2000 mg Sodium Diet Discharge Activity: Return to Normal Activity Home Medications: Medications to take at Discharge Amlodipine [Norvasc] 2.5 mg PO DAILY #30 tab 10/13/17 Amoxicillin/Potassium Clav [Augmentin 875-125 Tablet] 1 ea PO BID #14 tab 10/13/17 Omeprazole [Prilosec] 10 mg PO DAILY 10/13/17 Oxycodone [Oxyir] 5 mg PO Q4H PRN PRN 5 Days #20 tablet 10/13/17 Following Prescrptions Were Given to Patient: Oxycodone [Oxyir] 5 mg PO Q4H PRN PRN 5 Days #20 tablet PRN Reason: Moderate Pain (pain scale 4-5) Amlodipine [Norvasc] 2.5 mg PO DAILY #30 tab Amoxicillin/Potassium Clav [Augmentin 875-125 Tablet] 1 ea PO BID #14 tab Primary Care Physician: Care Physician,No Primary [Primary Care Provider] - Please follow up with your Primary Care Physician in: within 2 weeks Please Follow Up With: Woo Johnson MD When: WITHIN 2 WEEKS Disposition: Home Minutes spent on discharge:: 40 Patient Condition:: Stable Medical Necessity - Tobacco Use Smoking Status: Current every day smoker Meaningful Use Info Meaningful Use Diagnoses (Choose all that apply): None applicable Code Visit Inpatient E&M: 02115 Disch Hosp
[2017-10-13] MEDS: amLODIPine 2.5 MG Tablet PO (12:57)
== END 2017-10-13 13:15 | disposition home or self-care (01) ==
LOC: ED 22:56 → MS3 10-13 02:32
PROVIDERS: Admitting Provider Hospitalist; Emergency Provider Emergency Medicine; Visit Provider Internal Medicine
DX: N48.89 Other specified disorders of penis (principal); N48.22 Cellulitis of corpus cavernosum and penis; I10 Essential (primary) hypertension; F17.210 Nicotine dependence, cigarettes, uncomplicated
CPT/HCPCS: 36415; 71045; 80053; 81001; 82962; 83605; 85025; 85610; 85730; 87040; 87086; 93005; 96361; 96365; 96366; 96367; 96372; 96375; 99218; 99285; 99406; J7030; J7120; A4216; G0378; J2405

== ENCOUNTER 2017-10-24 15:31 | Emergency (ER) | payer SELFPAY ==
[2017-10-24 15:32] VITALS: BP 149/81; PULSE 96; RESP 16; TEMP 37.1; O2SAT 98; BMI 24.3
[2017-10-24] MEDS: Morphine 4 MG/ML Syringe IV (16:25)
[2017-10-24] MEDS: Ondansetron 4 MG/2 ML Vial IV (16:26)
[2017-10-24] MEDS: Ketorolac 15 MG/ML Vial IV (16:26)
--- NOTE | 2017-10-24 16:27 | ED.VISSUMM ---
- ER Visit Summary Date of Service: 10/24/17 Chief Complaint: Increased pain and swelling of penis History of Present Illness: The patient is a 52 M who was seen on October 06 and admitted for possible fractured penis after vigorous intercourse with . Exploration did not reveal fracture of the penis. He was admitted on October 13 for possible infection, postop. He now presents because of increased pain and swelling. Apparently, he is applying peroxide to the wound. He complained of subjective fever. There is been no increased drainage. There is increased swelling on the ventral side of the penis. Physical Examination: Vital signs noted unremarkable he is afebrile. Dressing was removed. He has granulation tissue. There is slight swelling. This might be slightly increased compared to prior her doctor Dori Medel who saw him prior visit. There is no erythema. There is no warmth. He will not tell me to palpate because of exquisite pain. There is no inguinal lymphadenopathy. There is an open wound with granulation tissue. There is no evidence in my professional medical opinion of infection. Test Results: CBC and BMP are unremarkable. Emergency Department Course and Treatment: Because patient complains of subjective fever CBC was obtained. He was medicated in hopes of allowing/permitted me to perform a complete exam. Treatment Plan: Discontinue peroxide application and follow instructions given by Dr. Johnson. Disposition: Discharged to home Impression: Dehiscence incision without evidence of infection Ivan estrada like that name at home This note was generated with [employer] dictation software. It may contain incorrect words, spelling, and punctuation that were not noted in review of the chart prior to signing ED Disposition - Plan for ED Patient: Disposition: Home or Assisted Living Chief Complaint: Abscess Instructions: ED Post Op Pain, ED Wound Check Post Op No Infec Referrals: Care Physician,No Primary [Primary Care Provider] - Woo Johnson MD [STAFF PHYSICIAN] - Additional Instructions: Discontinue application of peroxide to your wound. It is my fashion medical opinion the peroxide major wound worse and the cause of your increased swelling.
--- NOTE | 2017-10-24 16:30 | ED.DCSUM_ITS ---
- ER Visit Summary Date of Service: 10/24/17 Chief Complaint: Increased pain and swelling of penis History of Present Illness: The patient is a 52 M who was seen on October 06 and admitted for possible fractured penis after vigorous intercourse with . Exploration did not reveal fracture of the penis. He was admitted on October 13 for possible infection, postop. He now presents because of increased pain and swelling. Apparently, he is applying peroxide to the wound. He complained of subjective fever. There is been no increased drainage. There is increased swelling on the ventral side of the penis. Physical Examination: Vital signs noted unremarkable he is afebrile. Dressing was removed. He has granulation tissue. There is slight swelling. This might be slightly increased compared to prior her doctor Dori Medel who saw him prior visit. There is no erythema. There is no warmth. He will not tell me to palpate because of exquisite pain. There is no inguinal lymphadenopathy. There is an open wound with granulation tissue. There is no evidence in my professional medical opinion of infection. Test Results: CBC and BMP are unremarkable. Emergency Department Course and Treatment: Because patient complains of subjective fever CBC was obtained. He was medicated in hopes of allowing/ permitted me to perform a complete exam. Treatment Plan: Discontinue peroxide application and follow instructions given by Dr. Johnson. Disposition: Discharged to home Impression: Dehiscence incision without evidence of infection Ivan estrada like that name at home This note was generated with [employer] dictation software. It may contain incorrect words, spelling, and punctuation that were not noted in review of the chart prior to signing ED Disposition - Plan for ED Patient: Disposition: Home or Assisted Living Chief Complaint: Abscess Instructions: ED Post Op Pain, ED Wound Check Post Op No Infec Referrals: Care Physician,No Primary [Primary Care Provider] - Woo Johnson MD [STAFF PHYSICIAN] - Additional Instructions: Discontinue application of peroxide to your wound. It is my fashion medical opinion the peroxide major wound worse and the cause of your increased swelling.
[2017-10-24 16:45] LABS: Absolute Lymphocyte Count 2.67 X10^3/ul (0.83-4.51); Absolute Neutrophil Count 5.5 X10^3/uL (2.0-7.7); Basophil# 0.06 X10^3/uL; Basophil% 0.6 % (0-1); Eosinophil# 0.42 X10^3/uL; Eosinophils% 4.5 % (0-5); Hematocrit 40.7 % (40-54); Hemoglobin 13.7 g/dl (13.0-16.5); Lymphocyte # 2.67 X10^3/ul (4.0); Lymphocyte % 28.4 % (19-41); Mean Corp Hgb Conc 33.7 g/gl (32-36); Mean Corpuscular Hgb 32.6 pg (27.0-32.0); Mean Corpuscular Volume 96.9 fL (80-94); Mean Platelet Vol. 9.7 fl (6.2-12.0); Monocyte# 0.78 X10^3/uL; Monocyte% 8.3 % (0-10); Neutrophil # 5.46 X10^3/uL (2.7-7.7); Neutrophil % 58.1 % (47-70); Platelet Count 335 K/mm3 (150-450); RBC Distribution Width CV 12.6 % (11.6-14.6); RBC Distribution Width SD 44.3 fl (35.1-43.9); White Blood Count 9.4 K/mm3 (4.4-11.0)
[2017-10-24 16:48] LABS: POSITIVE COUNT NO; POSITIVE DIFFERENTIAL NO; POSITIVE MORPHOLOGY NO
[2017-10-24 16:54] LABS: Anion Gap 7 (5-15); BUN 14 mg/dL (7-18); BUN/Creat Ratio 13.9 RATIO (10-20); Calcium,Total 8.3 mg/dL (8.5-10.1); Chloride 103 mmol/L (98-107); Creatinine, Serum 1.01 mg/dL (0.70-1.30); EST Glomerular Filtration Rate 82 mL/min (>60); Est Glom Filt Rate - Afr Amer 99 mL/min (>60); Estimated Creatinine Clearance 87.33 ml/min; Glucose 89 mg/dL (74-106); Potassium 4.8 mmol/L (3.5-5.1); Sodium Level 140 mmol/L (136-145)
[2017-10-24 17:20] VITALS: BP 146/96; PULSE 88; RESP 16; O2SAT 98
== END 2017-10-24 17:22 | disposition home or self-care (01) ==
PROVIDERS: Emergency Provider Emergency Medicine
DX: T81.31XA Disruption of external operation (surgical) wound, not elsewhere classified, initial encounter (principal); N48.89 Other specified disorders of penis; G89.18 Other acute postprocedural pain; I10 Essential (primary) hypertension; Z79.899 Other long term (current) drug therapy; Z72.0 Tobacco use
CPT/HCPCS: 80048; 85025; 96374; 96375; 99283; A4216; J2405

== ENCOUNTER 2017-11-03 03:12 | Observation (INO) | payer SELFPAY ==
[2017-11-03] VITALS (29 sets, daily range): BP systolic 112–213; BP diastolic 63–182; PULSE 68–94; RESP 14–18; TEMP 36.3–36.7; O2SAT 93–100; BMI 24.5; BMI 23.6; BMI 23.7
--- NOTE | 2017-11-03 03:34 | RAD_ITS ---
STUDY: X-RAY CHEST REASON FOR EXAM: Male, 52 years old. Chest pain that started in the right arm. TECHNIQUE: Single AP portable view of the chest. COMPARISON: 10/12/2017. FINDINGS: The lungs are clear and mildly hyper expanded. There is no demonstrated pleural abnormality. Normal size heart. Normal mediastinum and carmina. Normal visualized pulmonary arteries. Normal visualized aortic arch and descending thoracic aorta. Normal visualized thoracic spine. There are several old healed left rib fractures. There is no demonstrated abnormality of the visualized soft tissue structures of the upper abdomen. RAD/Chest 1 View (Portable) IMPRESSION: Mild hyperexpansion of lungs, possibly representing COPD. No evidence for acute cardiopulmonary pathology. Electronically Signed: Skip Nash MD at 3:57 EDT , Service support ,
--- NOTE | 2017-11-03 03:34 | EKG12_ITS ---
Test Reason : CP Blood Pressure : / mmHG Vent. Rate : 088 BPM Atrial Rate : 088 BPM P-R Int : 134 ms QRS Dur : 088 ms QT Int : 358 ms P-R-T Axes : 061 077 069 degrees QTc Int : 433 ms Normal sinus rhythm Normal ECG Confirmed by ABDIRASHID GRIGSBY, JOSE ([id number]), senior editor LAUREN WILSON ([id number]) on 11/05/2017 2:21:17 PM Referred By: EITAN Confirmed By:JOSE MENDENHALL MD
[2017-11-03 04:08] LABS: Absolute Lymphocyte Count 4.14 X10^3/ul (0.83-4.51); Absolute Neutrophil Count 4.2 X10^3/uL (2.0-7.7); Eosinophil# 0.57 X10^3/uL; Eosinophils% 5.9 % (0-5); Hematocrit 40.5 % (40-54); Hemoglobin 13.6 g/dl (13.0-16.5); Lymphocyte # 4.14 X10^3/ul (4.0); Lymphocyte % 42.6 % (19-41); Mean Corp Hgb Conc 33.6 g/gl (32-36); Mean Corpuscular Hgb 32.3 pg (27.0-32.0); Mean Corpuscular Volume 96.2 fL (80-94); Mean Platelet Vol. 9.6 fl (6.2-12.0); Monocyte# 0.68 X10^3/uL; Neutrophil # 4.18 X10^3/uL (2.7-7.7); Neutrophil % 43.1 % (47-70); Platelet Count 300 K/mm3 (150-450); RBC Distribution Width CV 12.8 % (11.6-14.6); RBC Distribution Width SD 44.2 fl (35.1-43.9); Red Blood Count 4.21 M/mm3 (4.6-6.2); White Blood Count 9.7 K/mm3 (4.4-11.0)
[2017-11-03 04:10] LABS: POSITIVE COUNT NO; POSITIVE DIFFERENTIAL NO; POSITIVE MORPHOLOGY NO
[2017-11-03 04:16] LABS: Anion Gap 7 (5-15); BUN 15 mg/dL (7-18); BUN/Creat Ratio 13.9 RATIO (10-20); Calcium,Total 8.2 mg/dL (8.5-10.1); Chloride 107 mmol/L (98-107); Creatinine, Serum 1.08 mg/dL (0.70-1.30); EST Glomerular Filtration Rate 76 mL/min (>60); Est Glom Filt Rate - Afr Amer 92 mL/min (>60); Estimated Creatinine Clearance 81.67 ml/min; Glucose 116 mg/dL (74-106); Potassium 4.1 mmol/L (3.5-5.1); Sodium Level 142 mmol/L (136-145)
--- NOTE | 2017-11-03 04:22 | CT_ITS ---
STUDY: CTA CHEST REASON FOR EXAM: Male, 52 years old. Chest pain which radiates to the right arm and across the chest. History of hypertension. RADIATION DOSAGE (If Supplied By Facility): CTDIvol = ( 14.93 ) mGy, DLP = ( 529.48 ) mGycm TECHNIQUE: The examination was performed with the intravenous administration of 75ML ml of Isovue 370 contrast material. Post-processing of the angiographic images was performed, with multiplanar reformation, but without 3D reconstruction. Individualized dose optimization techniques were used for this CT. COMPARISON: None. FINDINGS: Normal enhancement of the main pulmonary artery and right and left pulmonary arteries. Normal enhancement of the bilateral peripheral pulmonary arteries. There is no demonstrated pulmonary embolism. Normal thoracic aorta. There is minimal atherosclerotic calcification of the visualized great vessels. There is no demonstrated aortic dissection. Normal heart and pericardium. There are coronary artery calcifications. There are small mediastinal and hilar lymph nodes which are normal in size and morphology.. Normal visualized trachea. There is mild bronchiectasis. There is mural thickening of bronchi, consistent with an infectious or inflammatory bronchitis.. The lungs are hyper expanded, with flattening of the hemidiaphragms. There are emphysematous changes in the lungs as well as mild fibrotic changes. There are no demonstrated pulmonary infiltrates. Normal pleura. Normal chest wall structures. There are multilevel degenerative changes of thoracic spine. Normal visualized upper abdomen. CT/CTA Chest W/WO Contrast IMPRESSION: Normal CTA chest examination, without a demonstrated pulmonary embolism or arterial dissection. Mild atherosclerosis. Emphysematous and fibrotic changes in the lungs. Bronchiectasis with bronchial wall thickening, consistent with an infectious or inflammatory bronchitis. No evidence for acute cardiopulmonary pathology. Electronically Signed: Skip Nash MD at 5:16 EDT , Service support ,
[2017-11-03] MEDS: Ondansetron 4 MG/2 ML Vial IV (04:48)
--- NOTE | 2017-11-03 05:24 | PCM.HP.STD ---
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 Patient and also report history of ~ 1-1.5 weeks severe dyspnea with exertion. Patient prior to this very active without issue. In the ED work-up included T 98, HR 87, BP 213/182-->127/88, RR 16, 96% on RA, CBC with WBC 9.7, hemoglobin 13.6, platelet 300, BMP with glucose with restriction, troponin less than 0.015, chest x-ray with chronic COPD changes, CTPA with emphysematous and fibrotic changes in the lung, bronchiectasis with bronchial wall thickening, EKG SR without acute evidence of ischemia. In the ED patient administered Zofran and asa as well as NG per EMS. Patient noted improvement in the ED transiently to 3/10, upon evaluation recurrent 5-6/10. Discussed w/ ED and given concerning history, recurrent chest pain will have NG series performed and will review case with cardiology for consideration cardiac catheterization directly. Past Medical History Past Medical History (Chronic Problems): Chronic Problems Hypertension (Chronic) Tobacco use (Chronic) Allergies No Known Allergies Allergy (Verified 10/12/17 22:37) Home Medications: Ambulatory Orders Medication Instructions Recorded Amlodipine [Norvasc] 2.5 mg PO DAILY #30 tab 10/13/17 Omeprazole [Prilosec] 10 mg PO DAILY 10/13/17 Multivitamin [Multiple Vitamins] 1 each PO DAILY 10/24/17 Pyridoxine HCl [Vitamin B-6] 100 mg PO DAILY 10/24/17 Surgical History: - - Penile exploration and previous scar tissue removal from urethra, T+A. Psychiatric History: No pertinent psych hx Lives: Spouse/ Significant Other Smoking Status: Current every day smoker - 1/2 ppd cigarette tobacco use. Tobacco Use: Non-smoker Alcohol: Occasional Drugs: None - *Family History Maternal History Items: Heart Disease - Notable young cardiac disease history in his mother. Paternal History Items: Cancer Review of Systems Constitutional: Reports: Malaise, Weakness, Fatigue. Denies: Chills, Fever, Weight Change HEENT: Denies: Head Aches, Sinus Congestion, Sinus Drainage Cardiovascular: Reports: Chest Pain, Chest Pressure, Chest Tightness, Light Headedness. Denies: Palpitations Respiratory: Reports: Shortness of Breath, Shortness of breath upon exertion. Denies: Cough, Shortness of breath at rest, Sputum production Gastrointestinal: Reports: Nausea. Denies: Abdominal Pain, Vomiting Genitourinary: Denies: Dysuria Musculoskeletal: Denies: Joint Pain, Joint Tenderness Skin: Denies: Rash, Wounds Neurological: Denies: Numbness, Tingling, Focal weakness Psychiatric: Denies: Anxiety, Depression, Homicidal Ideations, Suicidal Ideations Hematologic/ Lymphatic: Denies: Easy Bruising, Easy Bleeding VTE Information - Inpt Only VTE Present on Admission: No VTE Mechan Device Prophylaxis: SCD's VTE Pharm Prophylaxis ordered?: Yes Patient Problems: Active and Suspected Problems Chest pain (Acute) Subjective: Seated upright in the ED bed, notes recurrent chest pain, 5-6/10. Objective: Physical Examination: General: awake, alert, oriented x 3 and cooperative, seated upright in the ED bed in no apparent distress but notes recurrent chest pain. Skin: normal color, turgor, no icterus, cyanosis. HEENT: AT/NC, EOMI, PERRLA, MMM, no carotid bruits or JVD noted. Lungs: Diminished BS, > BL bases, no rales, ronchi or wheezing. Heart: Regular rate and rhythm; no gallop, rub audible. Abdomen: soft, NTTP, ND, normal BS, no HSM. Extremities: no cyanosis, clubbing, or edema. Neurological: patient awake, alert, oriented x 3; cognitive function intact; pupils equally reactive to light and accomodation; cranial nerves II-XII grossly normal, moving all 4 extremities, no focal deficits, strength severely globally decreased secondary to acute presentation. Psychiatric: affect appears fatigued, no acute evidence of depressive or anxiety feelings. - Physical Exam Vital Signs Temp Pulse Resp BP Pulse Ox 98.0 F 74 16 127/88 H 96 11/03/17 03:12 11/03/17 05:08 11/03/17 05:08 11/03/17 05:08 11/03/17 05:08 Oxygen Delivery Method Room Air Weight: 171 lb 1.259 oz Body Mass Index (BMI) 24.5 Laboratory Tests Past 24 Hrs 11/03/17 11/03/17 03:26 03:26 WBC 9.7 RBC 4.21 L Hgb 13.6 Hct 40.5 MCV 96.2 H MCH 32.3 H MCHC 33.6 RDW 12.8 RDW Differential 44.2 H Plt Count 300 MPV 9.6 Immature Gran % (Auto) 0.400 Neut % (Auto) 43.1 L Lymph % (Auto) 42.6 H [place] % (Auto) 7.0 Eos % (Auto) 5.9 H Baso % (Auto) 1.0 Absolute Neuts (auto) 4.2 Absolute Lymphs (auto) 4.14 Total Counted Not Reportable Sodium 142 Potassium 4.1 Chloride 107 Carbon Dioxide 28.0 Anion Gap 7 BUN 15 Creatinine 1.08 Estim Creat Clear Calc 81.67 Est GFR (MDRD) Af Amer 92 Est GFR (MDRD) Non-Af 76 BUN/Creatinine Ratio 13.9 Glucose 116 H Calcium 8.2 L Troponin I < 0.015 Assessment/Plan All Active Problems Penile swelling (Acute) Chest pain (Acute) The patient is a 52 y/o M w/ PMHx: Tobacco use, HTN who presents to the [facility] ED on 11/03/17 w/ 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 Patient and also report history of ~ 1-1.5 weeks severe dyspnea with exertion. Patient prior to this very active without issue. (1) Chest Pain, Concerning for UA: ED work-up included T 98, HR 87, BP 213/182-->127/88, RR 16, 96% on RA, CBC with WBC 9.7, hemoglobin 13.6, platelet 300, BMP with glucose with restriction, troponin less than 0.015, chest x-ray with chronic COPD changes, CTPA with emphysematous and fibrotic changes in the lung, bronchiectasis with bronchial wall thickening, EKG SR without acute evidence of ischemia. Will admit to PCU, place on a monitored bed to assure no acute myocardial infarction with serial cardiac enzymes and EKGs. Given concerning onset history and prior ~1-1.5 week exertional dyspnea, awaiting Cardiology input for consideration cardiac catheterization versus continuation w/ nuclear stress testing given recent exercise intolerance. ASA, NG, morphine. FLP in AM. Mag pending. (2) Hypertension: Continue home regimen including Norvasc with addition of additional oral regimen to maintain appropriate BP. (3) Recent Penile Edema, Cellulitis: History of penile intervention in youth w/ scar tissue intervention at later date. treated with 7 day regimen augmentin per ID recommendation. (4) Chronic COPD: ATC duonebs, PRN albuterol, HOB, IS parameters. (5) Tobacco Abuse: Encouraged cessation, inpatient consultation per RT, NR if desired. (6) Hyperglycemia: Admission glucose 116, likely stress response. (7) GERD: Famotidine. (8) DVT prophylaxis: SCDs, lovenox. Code Visit OBSV E&M: 62170 Initial observation care L3
--- NOTE | 2017-11-03 05:34 | ED.DCSUM_ITS ---
- ER Visit Summary Date of Service: 11/03/17 Chief Complaint: Chest pain History of Present Illness: The patient is a 52 M who presents with chest pain. It began suddenly 1-1-1/2 hours prior to presentation. It began at rest. He states he initially began to have pain between shoulder blades and in the right back which then radiated around to the front of his chest in almost a bandlike pattern. He states this was crushing. He states that at its worst it was 10 out of 10 and at the time my history is 4-5 out of 10 and he describes it as tolerable. There was associated diaphoresis shortness of breath and lightheadedness. No history of prior similar symptoms. He was given aspirin nitroglycerin and morphine prehospital. He states he is feeling better currently but believes his symptoms had began to improve on their own even prior to the medication administration. His pain was radiating down the right arm this has resolved. He states he had bilateral arm numbness. His cardiac risk factors include hypertension family history and smoking. Additionally he has recently been hospitalized. He was taken to the operating room for possible penile fracture. He was then readmitted for possible infection. Physical Examination: Initial blood pressure recorded is 213/182 however I believe this was an inaccurate reading is on repeat it was 151/88 and subsequent blood pressures have been normal. Vitals otherwise unremarkable Initially as the patient was being taken by EMS to the bed he appeared pale and diaphoretic. This has improved and he is mildly diaphoretic at the time of my examination Heart regular rate and rhythm Patient has some scattered expiratory wheezing but is in no distress no increased work of breathing or retractions Abdomen soft nontender Patient does have a penile wound and some ulceration Alert Extremities nontender with easily palpable and symmetric radial and dorsalis pedis pulses Test Results: EKG shows normal sinus rhythm at a rate of 88 with no acute ischemic changes. CBC BMP troponin unremarkable. Chest x-ray shows possible COPD otherwise normal. CTA of the chest shows some findings consistent with bronchitis but no acute pathology no pulmonary embolism or dissection. Emergency Department Course and Treatment: Patient's description of symptoms and presentation is concerning for angina. His EKG is normal and his enzymes are normal. Although his symptoms were not as classic description for pulmonary embolism he did describe sudden onset of symptoms with recent surgery and recent hospitalization shortness of breath so CTA was obtained to rule out pulmonary embolism which was normal. On reevaluation he is resting comfortably and states his pain is currently 3 out of 10. His CHERRY risk score is 2, his heart score is 5. I do feel the patient will need further evaluation including repeat EKGs, serial troponins, likely stress testing. Patient was discussed with the hospitalist will be admitted. Treatment Plan: [] Disposition: Admit Impression: Chest pain This note was generated with [employer] dictation software. It may contain incorrect words, spelling, and punctuation that were not noted in review of the chart prior to signing ED Disposition - Plan for ED Patient: Chief Complaint: Chest Pain Referrals: Care Physician,No Primary [Primary Care Provider] -
--- NOTE | 2017-11-03 06:02 | EKG12_ITS ---
Test Reason : AM EKG Blood Pressure : / mmHG Vent. Rate : 072 BPM Atrial Rate : 072 BPM P-R Int : 134 ms QRS Dur : 090 ms QT Int : 398 ms P-R-T Axes : 077 086 077 degrees QTc Int : 435 ms Normal sinus rhythm Normal ECG Confirmed by Patricia Mitchell ([id number]), editorial director LAUREN WILSON ([id number]) on 11/08/2017 3:33:05 PM Referred By: LINDY Confirmed By:Patricia Mitchell
[2017-11-03 06:54] LABS: Magnesium 2.2 mg/dL (1.6-2.6)
[2017-11-03] MEDS: 0.9% Normal Saline 1,000 ML 100 ML IV (07:06)
[2017-11-03 07:16] LABS: Prothrombin Time (Protime)PT. 12.7 SECONDS (11.7-14.9)
[2017-11-03 07:17] LABS: Partial Thromboplast Time 26.5 Seconds (24.1-36.2)
[2017-11-03] MEDS: Ipratropium/Albuterol Sulfate 3 ML AMPUL.NEB INHALATION ×2 (07:33→19:11)
--- NOTE | 2017-11-03 07:59 | CON.PCM_ITS ---
Problem List (1) Unstable angina pectoris Status: Acute (2) Hypertension Status: Chronic Qualifiers: Hypertension type: essential hypertension Qualified Code(s): I10 - Essential (primary) hypertension (3) Tobacco use Status: Chronic (4) Penile swelling Status: Acute Reason for Consult Date of Consultation: 11/03/17 History of Present Illness: The patient is a 52 year old white male with a past medical history which is included recent diagnosis of hypertension, recent penile injury resulting in surgical debridement, and tobacco use who presents with symptoms concerning for unstable angina pectoris. The patient states that recently he has been diagnosed with hypertension and placed on medical management. He also believes he had a spider bite to his penis. This led to a urologic evaluation which he states that led to urologic surgery which has resulted in surgical debridement of a wound on his penis for which she is still doing antibiotics/surgical dressings. He notes that during this time he feels that he has been more short of breath and dyspneic especially with activity. He notes that he has developed chest discomfort and yesterday evening he awoke with chest discomfort. He states it started initially in his back and then radiated around the right side of his chest and down his right upper extremity with right upper extremity paresthesias. It then radiated to his left upper extremity. He became very diaphoretic. He does not recall any acute nausea or emesis. He woke his from sleep. She states that he was very diaphoretic. He was brought to the hospital for further evaluation. In the emergency department he was evaluated w [facility] included cardiac enzymes and an ECG. His troponin I level was negative and his ECG demonstrated sinus rhythm with no acute ECG changes. He was treated with nitroglycerin sublingual and had improvement in his symptoms. He also underwent a chest CTA which demonstrated no great vessel disease or thromboembolic disease. He had recurrence of his symptoms again requiring additional nitrate therapy. He was subsequently placed in the PCU for further evaluation. He states status post nitrate therapy he feels better but he still feels some residual chest discomfort. He had a repeat troponin I level which was negative. His repeat ECG again demonstrated sinus rhythm with no acute ECG changes. He does state he underwent diagnostic cardiac catheterization years ago following an accident. He states his accident resulted in chest trauma. He was evaluated [facility] and transferred to [facility]. To the best of his knowledge his cardiac catheterization demonstrated no evidence of underlying CAD. He states he was told he had a bruised heart. [] Past Medical History Allergies/Adverse Reactions: Allergies No Known Allergies Allergy (Verified 10/12/17 22:37) Home Medications: Ambulatory Orders Medication Instructions Recorded Amlodipine [Norvasc] 2.5 mg PO DAILY #30 tab 10/13/17 Omeprazole [Prilosec] 10 mg PO DAILY 10/13/17 Multivitamin [Multiple Vitamins] 1 each PO DAILY 10/24/17 Cyanocobalamin (Vitamin B-12) 1,000 mcg PO DAILY 11/03/17 [Vitamin B-12] Past Medical History (Chronic Problems): Chronic Problems Hypertension (Chronic) Tobacco use (Chronic) Surgical History: - - Penile exploration and previous scar tissue removal from urethra, T+A. Psychiatric History: No pertinent psych hx - *Family History Maternal History Items: Heart Disease - Notable young cardiac disease history in his mother. Paternal History Items: Cancer Lives: Spouse/ Significant Other Smoking Status: Current every day smoker Tobacco Use: Cigarettes Alcohol: Occasional Drugs: None Review of Systems - Review of Systems General: Denies: Fever, Night Sweats, Fatigue Cardiovascular: Reports: Chest Discomfort, Chest Discomfort at Rest, Shortness of Breath, Shortness of Breath at Rest, Shortness of Breath with Exertion. Denies: Orthopnea, PND, Peripheral Edema, Palpitations, Lightheadedness, Dizziness, Near Syncope, Syncope Respiratory: Reports: Cough, Shortness of Breath. Denies: Sputum Production, Hemoptysis Gastrointestinal: Denies: Hematemesis, Hematochezia, Melena Genitourinary: Denies: Dysuria, Hematuria Skin: Denies: Rash Subjectve: Is a 52-year-old white male who appears to be resting reasonably comfortably at the moment in no acute distress. Objective: Vital Signs Temp Pulse Resp BP Pulse Ox 98.0 F 72 14 115/77 96 11/03/17 06:24 11/03/17 06:24 11/03/17 06:24 11/03/17 06:24 11/03/17 06:24 Oxygen Delivery Method Room Air Weight: 165 lb 2.02 oz Body Mass Index (BMI) 23.6 General: Awake, Alert, Oriented x 3, Cooperative, No Acute Distress HEENT: Atraumatic, Normocephalic, PERRL, EOMI, Sclera Non Icteric Oral: Moist Mucosa Neck: Supple, Good ROM, No JVD Chest Wall: - - Tender to palpation Lungs: Clear to auscultation Cardiovascular: Regular Rhythm, Normal S1, Normal S2 Vascular: No Carotid Bruits Abdomen: Bowel Sounds Present, Soft, Non Tender Genitalia: - - Penile lesion: Surgical debridement: No obvious hemorrhage at this time Extremities: No Cyanosis, No Clubbing, No edema Neurological: No Focal Motor or Sensory Deficit Psych/Mental Status: Appropriate, Normal Affect 11/03/17 03:26: WBC 9.7, RBC 4.21 L, Hgb 13.6, Hct 40.5, MCV 96.2 H, MCH 32.3 H, MCHC 33.6, RDW 12.8, RDW Differential 44.2 H, Plt Count 300, MPV 9.6, Immature Gran % (Auto) 0.400, Neut % (Auto) 43.1 L, Lymph % (Auto) 42.6 H, [place] % (Auto) 7.0, Eos % (Auto) 5.9 H, Baso % (Auto) 1.0, Absolute Neuts (auto) 4.2, Total Counted Not Reportable 11/03/17 03:26: Sodium 142, Potassium 4.1, Chloride 107, Carbon Dioxide 28.0, Anion Gap 7, BUN 15, Creatinine 1.08, Est GFR (MDRD) Af Amer 92, Est GFR (MDRD) Non-Af 76, BUN/Creatinine Ratio 13.9, Glucose 116 H, Calcium 8.2 L, Troponin I < 0.015 11/03/17 06:40: PT 12.7, INR 1.0, APTT 26.5 11/03/17 06:40: Magnesium 2.2 11/03/17 06:40: Troponin I < 0.015 Rhythm: Sinus rhythm EKG: As noted above Chest CT Scan: Preliminary evaluation as noted above Assessment/Plan 1. Unstable angina pectoris The patient presents with cardiovascular risk factors of his recent diagnosis of hypertension, long-standing tobacco abuse, positive family history of cardiovascular disease in his mother, now with resting/nocturnal symptoms concerning for unstable angina pectoris, without acute cardiac enzyme or ECG change, who is referred for further cardiovascular evaluation. The patient has been evaluated for great vessel disease and thromboembolic disease with a chest CTA. This was negative. The patient does not present with symptoms considered classic by history, exam, laboratory studies, or ECG, at this time compatible with an acute pericardial disease process. From a cardiac standpoint he would be considered for further evaluation, based on his clinical scenario, with diagnostic cardiac catheterization to assess for underlying CAD leading to his presentation. Depending upon the findings he may or may not need further evaluation from a cardiac standpoint. If this procedure is unremarkable for an explanation of his symptoms then consideration would have to be given to additional noncardiovascular related etiologies. This may include musculoskeletal or gastrointestinal. In the interim the patient would continue to be monitored. He will continue medical therapy as deemed appropriate. The above was discussed with the patient with his spouse present. The cardiac catheterization procedure with respect to risks and benefits was discussed with the patient with his spouse present. They were both agreeable to this approach. 2. Hypertension The patient will continue antihypertensive therapy with adjustment as needed. 3. Tobacco abuse The patient acknowledges that he needs to not only decreased but discontinue his tobacco intake. 4. Penile injury The patient will need to continue evaluation care per internal medicine. He is also been evaluated by Dr. Johnson of urology. The patient's case has also been previously discussed and discussed with the [facility] emergency department staff. This note was generated with [employer] dictation software. It may contain incorrect words, spelling, and punctuation that were not noted in checking the note before signing.
[2017-11-03] MEDS: 0.9% Normal Saline 1,000 ML 15 ML IV (08:17)
[2017-11-03] MEDS: Aspirin E.C. 81 MG Tablet PO (08:17)
[2017-11-03] MEDS: amLODIPine 2.5 MG Tablet PO (08:17)
[2017-11-03] MEDS: Famotidine 20 MG Tablet PO ×2 (08:17→22:27)
[2017-11-03] MEDS: 0.9% NaCl Peripheral Flush Adult/Peds IV (08:17)
--- NOTE | 2017-11-03 08:29 | NURSING ---
Per TRANSFER TABLE OPERATOR HELPER report, no consent on chart for heart catheterization. Ok per Ethan RN, will have pt sign consent in mobile home laborer. Susana LYONS
--- NOTE | 2017-11-03 09:48 | ECHOD_ITS ---
Reason For Study: CAD/ASHD Procedure This was a 2D Doppler, Color Flow transthoracic echocardiogram. The exam was of fair technical quality due to diminished acoustic windows. Exam performed portable in patient room. Left Ventricle Normal LV size. Apical false tendon noted. Left ventricular systolic function is normal. The estimated ejection fraction is 55 %. Normal diastology for age. No regional wall motion abnormalities noted. Right Ventricle Normal RV size. Normal systolic function. Atria Normal left atrium. Normal right atrium. No doppler evidence for ASD. Mitral Valve There is no mitral annular calcification. Normal mitral valve. Trivial mitral valve insufficiency. Tricuspid Valve Normal tricuspid valve. Trivial tricuspid valve insufficiency. Right ventricular systolic pressure estimated to be 33 mmHg. Aortic Valve Trisinus/trileaflet aortic valve. Mild focal aortic valve calcification. Pulmonic Valve The pulmonic valve is not well visualized. Great Vessels Normal sized aortic root. Pericardium/Pleural No pericardial effusion. MMode/2D Measurements & Calculations LVIDd: 5.4 cm IVSd: 0.72 cm Ao root diam: 2.9 cm LVIDs: 3.7 cm LVPWd: 0.61 cm LA dimension: 3.0 cm RVDd: 3.2 cm FS: 31.1 % LAV(MOD-bp): 41.5 ml LVAd ap4: 30.4 cm2 SV(MOD-sp4): 51.6 ml LAV(MOD-bp) Indexed: 21.6 ml/m2 EDV(MOD-sp4): 89.2 ml LAV(MOD-sp2): 52.8 ml EDV(sp4-el): 92.8 ml LAV(MOD-sp4): 29.5 ml LVAs ap4: 17.2 cm2 ESV(MOD-sp4): 37.6 ml ESV(sp4-el): 38.0 ml EF(MOD-sp4): 57.9 % EF(sp4-el): 59.0 % SV(sp4-el): 54.7 ml LA A4 area: 12.1 cm2 RA A4 area: 11.1 cm2 Doppler Measurements & Calculations MV E max raúl: 87.4 cm/sec Lat Peak E' Raúl: 11.9 cm/sec Med Peak E' Raúl: 9.7 cm/sec MV A max raúl: 64.7 cm/sec E/E' lat: 7.4 E/E' med: 9.0 MV E/A: 1.3 Ao V2 max: 112.6 cm/sec LV V1 max: 84.5 cm/sec PA V2 max: 80.9 cm/sec Ao max P.1 mmHg LV V1 max P.9 mmHg Ao V2 mean: 80.8 cm/sec Ao mean P.9 mmHg Ao V2 VTI: 22.2 cm TR max raúl: 272.1 cm/sec TR max P.6 mmHg Interpretation Summary Left ventricular systolic function is normal. The estimated ejection fraction is 55 %. Apical false tendon noted. Trivial mitral valve insufficiency. Trivial tricuspid valve insufficiency. Mild focal aortic valve calcification. Right ventricular systolic pressure estimated to be 33 mmHg. Normal diastology for age. Ordering Physician: Chandu Perez Performed By: Carito Calabrese, REYES, RVT
--- NOTE | 2017-11-03 10:00 | CL.D_ITS ---
Patient Name: TESFAYE MOORE Study Date: 11/03/2017 Performing: Chandu Perez MD Ht: 70 inches 178 cm : 1965 Wt: 165.6 lbs 75 kg Age: 52 Gender: male BSA: 1.93 PROCEDURE(S) PERFORMED [id number]/LV CLINICAL PROFILE AND INDICATIONS 75 Indications: Worsening Angina, Suspected CAD Heart Failure: None Stress/Imaging Stress/Image Study Performed: No Angina Classification Anginal Classification w/in 2 Weeks: CCS IV CAD Presentations: Unstable angina. CONCLUSIONS Elevated Left Ventricular End Diastolic Pressure Normal LV size, wall motion,and systolic function LVEF: by LV gram 65 % [place] Multivessel CAD (especially RCA) RECOMMENDATIONS Risk factor modification Medical therapy Staged percutaneous intervention DESCRIPTION OF PROCEDURE The patient arrived to the procedure lab. The risks and benefits of the procedure as well as a full d escription of our services here and current unavailability of surgical backup were fully explained to the patient and/or their significant other prior to the catheterization. The Timeout was completed, verifying the correct patient and procedure. The patient's procedural site was prepped and draped in the usual fashion. Local anesthetic was given subcutaneously to right radial region with Lidocaine 2% . Using a modified Seldinger technique, arterial access was obtained via the right radial artery, a 6 Fr sheath was inserted. Left Coronary Artery selective angiography was performed in multiple views u sing a 5 Fr. JL3.5 catheter. Right Coronary Artery selective angiography was then performed in multip le views using a 5 Fr. 3DRC (Edwardo) catheter. Right Coronary Artery selective angiography was then performed in multiple views using a 5 Fr. JR 4 catheter. Left Ventriculography was performed in LINARES projection using a 5 Fr. Pigtail catheter. LV to AO pullback pressures were then recorded.The arteria l sheath was pulled and a TR Band was applied for hemostasis 14cc air CORONARY ANGIOGRAPHY DOMINANCE: Right Dominant LEFT HEART ASSESSMENT Left Ventricular Ejection Fraction: by LV Gram 65 % Normal LV wall motion Elevated Left Ventricular End Diastolic Pressure LVEDP: 26 mmHg LEFT MAIN: Angiographically normal LEFT ANTERIOR DECENDING ARTERY: MID LAD: Mild luminal irregularities SEPTAL: Ostial: 25-50 % Stenosis CIRCUMFLEX ARTERY: PROX CIRC: Mild luminal irregularities RIGHT CORONARY ARTERY: Mild luminal irregularities MID RCA: 75 % Stenosis VALVE FINDINGS: Normal Aortic Valve function Normal Mitral Valve function AORTIC ROOT: Angiographically normal COMPLICATIONS No Complications PROCEDURE MEDICATIONS Versed 1 mg IV Fentanyl 50 mcg IV Oxygen: 2 L/min via nasal cannula Heparin diluted in 23cc Heparinized saline. Patient given 10cc IA of this solution. 11/03/2017 09:01: 38 Verapamil 2.5mg, Ntg 100mcgs, 2000 units of Heparin diluted in 23cc Heparinized saline. Patient give n 10cc IA of this solution. 11/03/2017 09:01:38 SUMMARY OF HEMODYNAMIC DATA Time AIR REST ECG 08:48:06 AO 106/85 (95) SA 09:04:00 LV 137/15, 40 09:28:55 LV 117/13, 26 09:29:01 LV 103/16, 23 09:30:08 LV 105/17, 20 09:30:14 LV 128/19, 25 09:30:35 LVp 126/17, 29 09:30:39 AOp 124/80 (98) 09:30:44 Signed By Chandu Perez MD On 11/03/2017 09:59:50 Chandu Perez MD
[2017-11-03] MEDS: Clopidogrel Bisulfate 75 MG Tablet PO (11:38)
[2017-11-03] MEDS: Metoprolol Tartrate 25 MG Tablet PO ×2 (11:38→22:27)
[2017-11-03] MEDS: Isosorbide Mononitrate 30 MG Tablet PO (11:38)
--- NOTE | 2017-11-03 13:11 | PN_ITS ---
Patient Problems: Active and Suspected Problems Chest pain (Acute) Unstable angina pectoris (Acute) Subjective: Patient was admitted with chest discomfort which started with interscapular pain and move around shoulder to chest. Patient also has shortness of breath for last 2 weeks. With concern of unstable angina patient had cardiac cath today. Vitals/I&O's: Vital Signs Temp Pulse Resp BP Pulse Ox 97.6 F L 69 17 121/72 H 100 11/03/17 12:35 11/03/17 12:35 11/03/17 12:35 11/03/17 12:35 11/03/17 12:35 Oxygen Delivery Method Room Air Weight: 165 lb 2.02 oz Body Mass Index (BMI) 23.6 Intake and Output for Last 24 Hours 11/01/17 11/02/17 11/03/17 23:59 23:59 23:59 Intake Total 912 / 912 Balance 912 / 912 General: Alert, Oriented x3, Cooperative HEENT: Atraumatic, PERRLA, EOMI, Normocephalic Neck: Supple, No JVD, Negative Carotid Bruits Lungs: Diminished, Rhonchi, Short of Breath Cardiovascular: Regular rate, Regular Rhythm, Normal S1, Normal S2, No murmurs Abdomen: Bowel Sounds Present, Soft, Non Tender, Non-Distended, - - Patient has penile ulcer. Dr. Johnson saw him Extremities: Capillary Refill Less than 3 Seconds, Edema Skin: No rashes, No breakdown Musculoskeletal: No Tenderness to Palpation of Joints or Extremities Neurological: Cranial nerves II-XII grossly intact Psych/Mental Status: Normal Affect, Appropriate Laboratory Results 11/03/17 03:26: WBC 9.7, RBC 4.21 L, Hgb 13.6, Hct 40.5, MCV 96.2 H, MCH 32.3 H, MCHC 33.6, RDW 12.8, RDW Differential 44.2 H, Plt Count 300, MPV 9.6, Immature Gran % (Auto) 0.400, Neut % (Auto) 43.1 L, Lymph % (Auto) 42.6 H, [place] % (Auto) 7.0, Eos % (Auto) 5.9 H, Baso % (Auto) 1.0, Absolute Neuts (auto) 4.2, Absolute Lymphs (auto) 4.14, Total Counted Not Reportable 11/03/17 03:26: Sodium 142, Potassium 4.1, Chloride 107, Carbon Dioxide 28.0, Anion Gap 7, BUN 15, Creatinine 1.08, Estim Creat Clear Calc 81.67, Est GFR (MDRD) Af Amer 92, Est GFR (MDRD) Non-Af 76, BUN/Creatinine Ratio 13.9, Glucose 116 H, Calcium 8.2 L, Troponin I < 0.015 11/03/17 06:40: PT 12.7, INR 1.0, APTT 26.5 11/03/17 06:40: Magnesium 2.2 11/03/17 06:40: Troponin I < 0.015 11/03/17 10:00: Troponin I < 0.015 Current Medications Al Hydroxide/Mg Hydroxide (Mylanta Ii) 30 ml PO Q6H PRN PRN PRN Reason: Gastric burning Albuterol Sulfate (Ventolin Aerosols) 2.5 mg INHALATION Q2H PRN PRN PRN Reason: dyspnea, wheezing Albuterol/Ipratropium (Duoneb) 3 ml INHALATION Q6HWA.RT [facility] Last Admin: 11/03/17 07:33 Dose: 3 ml Amlodipine Besylate (Norvasc) 2.5 mg PO DAILY [facility] Last Admin: 11/03/17 08:17 Dose: 2.5 mg Aspirin (Ecotrin) 81 mg PO DAILY@0800 [facility] Last Admin: 11/03/17 08:17 Dose: 81 mg Atorvastatin Calcium (Lipitor) 80 mg PO QHS [facility] Clopidogrel Bisulfate (Plavix) 75 mg PO DAILY [facility] Last Admin: 11/03/17 11:38 Dose: 75 mg Enoxaparin Sodium (Lovenox) 40 mg SC DAILY@1000 [facility] Last Admin: 11/03/17 08:22 Dose: Not Given Famotidine (Pepcid) 20 mg PO BID [facility] Last Admin: 11/03/17 08:17 Dose: 20 mg Sodium Chloride () 1,000 mls @ 100 mls/hr IV .Q10H [facility] Last Admin: 11/03/17 07:06 Dose: 100 mls/hr Sodium Chloride () 1,000 mls @ 15 mls/hr IV .Q48H [facility] Last Admin: 11/03/17 08:17 Dose: 15 mls/hr Sodium Chloride () 1,000 mls @ 75 mls/hr IV .[id number] [facility] Stop: 11/03/17 13:49 Last Admin: 11/03/17 10:50 Dose: Not Given Isosorbide Mononitrate (Imdur) 30 mg PO DAILY [facility] Last Admin: 11/03/17 11:38 Dose: 30 mg Magnesium Hydroxide (Milk Of Magnesia) 30 ml PO DAILY PRN PRN Reason: Constipation Metoprolol Tartrate (Lopressor (Beta Karri)) 25 mg PO BID [facility] Last Admin: 11/03/17 11:38 Dose: 25 mg Multivitamins (Multivitamin) 1 tablet PO DAILY@0800 [facility] Last Admin: 11/03/17 08:21 Dose: Not Given Nitroglycerin (Nitrostat) 0.4 mg SUBLINGUAL Q5M PRN PRN Reason: CHEST PAIN Nutritional Formula (Lactose Free) (Ensure Enlive) 120 ml PO 4X/DAY [facility] Last Admin: 11/03/17 08:21 Dose: Not Given Ondansetron HCl (Zofran) 4 mg IV Q8H PRN PRN PRN Reason: NAUSEA Promethazine HCl (Phenergan) 12.5 mg IV Q6H PRN PRN PRN Reason: NAUSEA/VOMITING Pyridoxine HCl (Vitamin B-6) 100 mg PO DAILYCM [facility] Last Admin: 11/03/17 08:20 Dose: Not Given Sodium Chloride () 5 - 30 ml IV UD PRN PRN Reason: SALINE FLUSH Last Admin: 11/03/17 08:17 Dose: 10 ml Medical Necessity - Tobacco Use Smoking Status: Current every day smoker Tobacco Use: Cigarettes Assessment/Plan All Active Problems Penile swelling (Acute) Chest pain (Acute) Unstable angina pectoris (Acute) The patient is a 52 y/o M with history of tobacco use, HTN possible COPD was admitted with progressive worsening of shortness of breath for 2 weeks and chest discomfort. Patient chest pain is started intrascapular pain that wraps around left shoulder left arm moved to the front. Patient was also diaphoretic, lightheadedness and dyspneic. He has dyspnea on exertion. Chest x-ray showed chronic COPD changes. CTPA showed emphysematous and fibrotic changes in the lung, bronchiectasis with bronchial wall thickening. EKG normal sinus rhythm without acute evidence of ischemia. 1. Atypical chest pain with concern of unstable angina with [place] multivessel coronary artery disease especially RCA: Patient is being admitted in PCU. Patient was seen by Dr. Perez and had cardiac cath in the morning. Cardiac cath shows normal LV size, wall motion and systolic function; EF by LV gram 65%. [place] multivessel coronary artery disease mid RCA 75%. Mid LAD mild irregularity. Septal ostial 25-50%. She had echo which showed EF 55% with normal diastolic. Normal RV size and systolic function. Normal right and left atria. Trivial TR, RVSP 33 mmHg. Trivial MR. 2. Pulmonary conditions: Chronic tobacco use, COPD and bronchiectasis with acu te bronchitis suggestive of COPD exacerbation: Patient had CT chest in the ER which shows emphysematous and fibrotic changes in the lungs. Mild bronchiectasis with mural thickening of bronchi consistent with inflammatory bronchitis. No pulmonary infiltrates. Smoking cessation advised. On DuoNeb every 6 hourly. Solu-Medrol 40 mg every 8 hourly. Incentive is spirometry. 3. Hypertension: Blood pressure is controlled. 4. Chronic penile injury: Patient seen by Dr. Johnson. Urology consult appreciated. Advised Neosporin topical application. DVT prophylaxis: On Lovenox 40 mils subcu daily. Laboratory Results 11/03/17 03:26: WBC 9.7, RBC 4.21 L, Hgb 13.6, Hct 40.5, MCV 96.2 H, MCH 32.3 H, MCHC 33.6, RDW 12.8, RDW Differential 44.2 H, Plt Count 300, MPV 9.6, Immature Gran % (Auto) 0.400, Neut % (Auto) 43.1 L, Lymph % (Auto) 42.6 H, [place] % (Auto) 7.0, Eos % (Auto) 5.9 H, Baso % (Auto) 1.0, Absolute Neuts (auto) 4.2, Absolute Lymphs (auto) 4.14, Total Counted Not Reportable 11/03/17 03:26: Sodium 142, Potassium 4.1, Chloride 107, Carbon Dioxide 28.0, Anion Gap 7, BUN 15, Creatinine 1.08, Estim Creat Clear Calc 81.67, Est GFR (MDRD) Af Amer 92, Est GFR (MDRD) Non-Af 76, BUN/Creatinine Ratio 13.9, Glucose 116 H, Calcium 8.2 L, Troponin I < 0.015 11/03/17 06:40: PT 12.7, INR 1.0, APTT 26.5 11/03/17 06:40: Magnesium 2.2 11/03/17 06:40: Troponin I < 0.015 11/03/17 10:00: Troponin I < 0.015 Clinical Impression(s) from Imaging Studies Chest X-Ray 11/03/17 03:34 IMPRESSION: Mild hyperexpansion of lungs, possibly representing COPD. No evidence for acute cardiopulmonary pathology. Chest CTA 11/03/17 04:22 IMPRESSION: Normal CTA chest examination, without a demonstrated pulmonary embolism or arterial dissection. Mild atherosclerosis. Emphysematous and fibrotic changes in the lungs. Bronchiectasis with bronchial wall thickening, consistent with an infectious or inflammatory bronchitis. No evidence for acute cardiopulmonary pathology. Code Visit Inpatient E&M: [id number] [facility] Hosp L3
--- NOTE | 2017-11-03 13:17 | PCM.PN.BLA ---
Progress Note Patient known to me, 52-year-old male who presented with a possible penile fracture but ended up having a penile infection last time I saw him he had a black eschar the side of the penis at this point the eschar has fallen off he now has granulation tissue at the site of the penis looks like it is starting to close up. This will eventually heal he will did need to keep keep placing Neosporin on it on a daily basis I do not think any surgical intervention is necessary reviewed this with the patient he can continue with topical therapy and eventually the granulation tissue should granulate in. Call me with questions.
--- NOTE | 2017-11-03 14:23 | CASEMGMT ---
Patient is self pay. SW spoke with patient and gave him some resources. Patient was here earlier this month and Patient Financial Services gave him a Medicaid application. Oliva BETANCUR MSW
[2017-11-03] MEDS: Neomycin/Bacitracin/Polymyxin Ointment 1 APPLIC TOPICAL (16:25)
[2017-11-03] MEDS: 0.9% Normal Saline 1,000 ML 75 ML IV (16:26)
[2017-11-03] MEDS: Atorvastatin Calcium 80 MG Tablet PO (22:26)
[2017-11-03] MEDS: Acetaminophen 325 MG Tablet 650 MG PO (22:29)
[2017-11-04] VITALS (7 sets, daily range): BP systolic 115–126; BP diastolic 72–80; PULSE 76–94; RESP 14–18; TEMP 36.7–37.1; O2SAT 95–97
[2017-11-04] MEDS: 0.9% Normal Saline 1,000 ML 75 ML IV (05:20)
--- NOTE | 2017-11-04 05:55 | EKG12_ITS ---
Test Reason : REPEAT CP Blood Pressure : / mmHG Vent. Rate : 076 BPM Atrial Rate : 076 BPM P-R Int : 138 ms QRS Dur : 100 ms QT Int : 406 ms P-R-T Axes : 068 078 068 degrees QTc Int : 456 ms Sinus rhythm Confirmed by ABDIRASHID GRIGSBY, JOSE ([id number]), assignment desk editor LAUREN WILSON ([id number] on 11/05/2017 2:21:39 PM Referred By: EITAN Confirmed By:JOSE MENDENHALL MD
[2017-11-04 06:22] LABS: Hemoglobin 14.1 g/dl (13.0-16.5); Mean Corp Hgb Conc 34.4 g/gl (32-36); Mean Corpuscular Hgb 33.2 pg (27.0-32.0); Mean Corpuscular Volume 96.5 fL (80-94); Mean Platelet Vol. 9.8 fl (6.2-12.0); Platelet Count 306 K/mm3 (150-450); RBC Distribution Width CV 12.4 % (11.6-14.6); RBC Distribution Width SD 42.4 fl (35.1-43.9); Red Blood Count 4.25 M/mm3 (4.6-6.2)
[2017-11-04 06:24] LABS: Scan Indicated on CBC? Y/N NO
[2017-11-04 06:32] LABS: ALB/GLOB Ratio 0.8 RATIO (0.9-2.4); AST(SGOT) 13 U/L (15-37); Alanine Aminotransfer ALT/SGPT 23 U/L (16-61); Albumin, Serum 3.2 g/dL (3.2-5.0); Alkaline Phosphatase 62 U/L (45-117); Anion Gap 10 (5-15); BUN 15 mg/dL (7-18); BUN/Creat Ratio 12.2 RATIO (10-20); Calcium,Total 8.6 mg/dL (8.5-10.1); Chloride 105 mmol/L (98-107); Cholesterol 189 mg/dL (200); Creatinine, Serum 1.23 mg/dL (0.70-1.30); EST Glomerular Filtration Rate 65 mL/min (>60); Est Glom Filt Rate - Afr Amer 79 mL/min (>60); Estimated Creatinine Clearance 71.71 ml/min; Globulin 3.8 g/dL (2.2-4.2); Glucose 189 mg/dL (74-106); High Density Lipoprotein 68 mg/dL; Potassium 4.6 mmol/L (3.5-5.1); Sodium Level 139 mmol/L (136-145); Triglycerides 64 mg/dL; Very Low Density Lipoprotein 13 mg/dL (5-40)
[2017-11-04] MEDS: Ipratropium/Albuterol Sulfate 3 ML AMPUL.NEB INHALATION (07:16)
--- NOTE | 2017-11-04 09:18 | PCM.PN.CARD ---
Subjectve: The patient is awake and alert. He states overall he is feeling better. He appears to be tolerating medication well. He has also been evaluated by Dr. Johnson urology. He recommended continued topical antibiotic therapy with no additional evaluation or care at this time. Objective: Vital Signs Temp Pulse Resp BP Pulse Ox 98.1 F 80 16 115/72 95 11/04/17 04:00 11/04/17 07:16 11/04/17 07:16 11/04/17 04:00 11/04/17 07:16 Oxygen Delivery Method Room Air Weight: 165 lb 2.02 oz Body Mass Index (BMI) 23.6 Intake and Output for Last 24 Hours 11/02/17 11/03/17 11/04/17 23:59 23:59 23:59 Intake Total 8 / 2248 390 / 390 Balance 2247 / 2247 390 / 390 General: Awake, Alert, Oriented x 3, Cooperative, No Acute Distress HEENT: Atraumatic, Normocephalic, PERRL, EOMI, Sclera Non Icteric Oral: Moist Mucosa Neck: Supple, Good ROM, No JVD Lungs: - - No obvious rales or rhonchi Cardiovascular: Regular Rhythm, Normal S1, Normal S2 Vascular: No Carotid Bruits, Normal Radial Pulses Abdomen: Bowel Sounds Present, Soft, Non Tender Neurological: No Focal Motor or Sensory Deficit Psych/Mental Status: Appropriate, Normal Affect 11/03/17 10:00: Troponin I < 0.015 11/04/17 05:44: WBC 13.0 H, RBC 4.25 L, Hgb 14.1, Hct 41.0, MCV 96.5 H, MCH 33.2 H, MCHC 34.4, RDW 12.4, RDW Differential 42.4, Plt Count 306, MPV 9.8 11/04/17 05:44: Sodium 139, Potassium 4.6, Chloride 105, Carbon Dioxide 24.0, Anion Gap 10, BUN 15, Creatinine 1.23, Est GFR (MDRD) Af Amer 79, Est GFR (MDRD) Non-Af 65, BUN/Creatinine Ratio 12.2, Glucose 189 H, Calcium 8.6, Total Bilirubin 0.30, Triglycerides 64, Cholesterol 189, LDL Cholesterol 108, VLDL Cholesterol 13, HDL Cholesterol 68 Rhythm: Sinus rhythm EKG: Sinus rhythm; no acute ECG changes Medical Necessity - Tobacco Use Smoking Status: Current every day smoker Tobacco Use: Cigarettes Assessment/Plan 1. Unstable angina pectoris The patient presents with cardiovascular risk factors of his recent diagnosis of hypertension, long-standing tobacco abuse, positive family history of cardiovascular disease in his mother, now with resting/nocturnal symptoms concerning for unstable angina pectoris, without acute cardiac enzyme or ECG change, who is referred for further cardiovascular evaluation. The patient has been evaluated for great vessel disease and thromboembolic disease with a chest CTA. This was negative. The patient does not present with symptoms considered classic by history, exam, laboratory studies, or ECG, at this time compatible with an acute pericardial disease process. The patient has undergone further evaluation with transthoracic echocardiogram which demonstrated overall preserved LV wall motion systolic function and a diagnostic cardiac catheterization demonstrating RCA disease. At the present time, status post review of the patient's case and discussion with interventional cardiology, it was recommended to continue medical therapy while the patient recuperates from his urologic issue. He will then be considered for a staged PCI to the RCA system. 2. Hypertension The patient will continue antihypertensive therapy with adjustment as needed. 3. Tobacco abuse The patient acknowledges that he needs to not only decreased but discontinue his tobacco intake. 4. Penile injury The patient will need to continue evaluation care per internal medicine. He has also been reevaluated by Dr. Johnson of urology who is recommended continued topical antibiotic therapy. The patient's case is been discussed with the patient and the [facility] staff. This note was generated with [employer] dictation software. It may contain incorrect words, spelling, and punctuation that were not noted in checking the note before signing.
--- NOTE | 2017-11-04 09:43 | DCINST_ITS ---
- Discharge Diagnoses Current Active Problems: Current Active and Chronic Problems Chest pain (Acute) Tobacco use (Chronic) Unstable angina pectoris (Acute) You will use the following diet at home:: Calorie/Carbohydrate Controlled (specify 1200, 1400, etc) - 1800, Cardiac Discharge Activity: Return to Normal Activity Allergies/Adverse Reactions: Allergies No Known Allergies Allergy (Verified 10/12/17 22:37) Medications to take at Discharge Amlodipine [Norvasc] 2.5 mg PO DAILY #30 tab 10/13/17 Omeprazole [Prilosec] 10 mg PO DAILY 10/13/17 Multivitamin [Multiple Vitamins] 1 each PO DAILY 10/24/17 Cyanocobalamin (Vitamin B-12) [Vitamin B-12] 1,000 mcg PO DAILY 11/03/17 Aspirin E.C. [Ecotrin] 81 mg PO DAILY@0800 #30 tablet 11/04/17 Atorvastatin Calcium [Lipitor] 80 mg PO QHS #30 tablet 11/04/17 Clopidogrel Bisulfate [Plavix] 75 mg PO DAILY #30 tablet 11/04/17 Isosorbide Mononitrate [Imdur] 30 mg PO DAILY #30 tablet 11/04/17 Metformin HCl 500 mg PO BID #60 tablet 11/04/17 Metoprolol Tartrate [Lopressor (beta pierre)] 25 mg PO BID #60 tablet 11/04/17 Neomycin/Bacitracin/Polymyxin [Neosporin Ointment] 1 applic TOPICAL DAILY PRN #1 tube 11/04/17 Nitroglycerin [Nitrostat] 0.4 mg SUBLINGUAL Q5M PRN #100 tablet 11/04/17 Tiotropium Br/Olodaterol HCl [Stiolto Respimat Inhal [place]] 2 inh IH DAILY #1 mist.inhal 11/04/17 The following prescriptions were given: Aspirin E.C. [Ecotrin] 81 mg PO DAILY@0800 #30 tablet Atorvastatin Calcium [Lipitor] 80 mg PO QHS #30 tablet Clopidogrel Bisulfate [Plavix] 75 mg PO DAILY #30 tablet Isosorbide Mononitrate [Imdur] 30 mg PO DAILY #30 tablet Neomycin/Bacitracin/Polymyxin [Neosporin Ointment] 1 applic TOPICAL DAILY PRN #1 tube PRN Reason: WOUND CARE Nitroglycerin [Nitrostat] 0.4 mg SUBLINGUAL Q5M PRN #100 tablet PRN Reason: Chest Pain Tiotropium Br/Olodaterol HCl [Stiolto Respimat Inhal [place]] 2 inh IH DAILY #1 mist.inhal Metoprolol Tartrate [Lopressor (beta pierre)] 25 mg PO BID #60 tablet Primary Care Physician: Care Physician,No Primary [Primary Care Provider] - Please follow up with your Primary Care Physician in: in 2 weeks Test Results: Test results from this visit will be discussed in further detail at your follow- up appointment, if applicable. Please Follow Up With: Chandu Perez MD When: in 2-4 weeks to schedule RCA PCI Please Follow Up With: Gal Gregory MD When: FOR Bronchitectasis and COPD IN 4 WEEKS
--- NOTE | 2017-11-04 09:43 | PCM.DC.SUM ---
Discharge Date and Diagnosis Date of Admission: 11/03/17 Date of Discharge: 11/04/17 - Primary Discharge Diagnosis Active and Suspected Problems Chest pain (Acute) Unstable angina pectoris (Acute) COPD with bronchiectasis mild COPD exacerbation - Secondary Discharge Diagnosis Chronic Problems Hypertension (Chronic) Tobacco use (Chronic) Hospital Course and Treatment Summary of Care Provided: [] The patient is a 52 y/o M with history of tobacco use, HTN possible COPD was admitted with progressive worsening of shortness of breath for 2 weeks and chest discomfort. Patient chest pain is started intrascapular pain that wraps around left shoulder left arm moved to the front. Patient was also diaphoretic, lightheadedness and dyspneic. He has dyspnea on exertion. Chest x-ray showed chronic COPD changes. CTPA showed emphysematous and fibrotic changes in the lung, bronchiectasis with bronchial wall thickening. EKG normal sinus rhythm without acute evidence of ischemia. The patient was seen and examined today General: Alert, Oriented x3, Cooperative HEENT: Atraumatic, PERRLA, EOMI, Normocephalic Neck: Supple, No JVD, Negative Carotid Bruits Lungs: Diminished, Rhonchi, Short of Breath Cardiovascular: Regular rate, Regular Rhythm, Normal S1, Normal S2, No murmurs Abdomen: Bowel Sounds Present, Soft, Non Tender, Non-Distended, - - Patient has penile ulcer. Dr. Johnson saw him Extremities: Capillary Refill Less than 3 Seconds, Edema Skin: No rashes, No breakdown Musculoskeletal: No Tenderness to Palpation of Joints or Extremities Neurological: Cranial nerves II-XII grossly intact Psych/Mental Status: Normal Affect, Appropriate 1. Atypical chest pain with concern of unstable angina with [place] multivessel coronary artery disease especially RCA: Patient is being admitted in PCU. Patient was seen by Dr. Perez and had cardiac cath in the morning. Cardiac cath shows normal LV size, wall motion and systolic function; EF by LV gram 65%. [place] multivessel coronary artery disease mid RCA 75%. Mid LAD mild irregularity. Septal ostial 25-50%. She had echo which showed EF 55% with normal diastolic. Normal RV size and systolic function. Normal right and left atria. Trivial TR, RVSP 33 mmHg. Trivial MR. Patient was only on vitamin B12 multivitamin and Prilosec at home. 2. Pulmonary conditions: Chronic tobacco use, COPD and bronchiectasis with acute bronchitis suggestive of COPD exacerbation: Patient had CT chest in the ER which shows emphysematous and fibrotic changes in the lungs. Mild bronchiectasis with mural thickening of bronchi consistent with inflammatory bronchitis. No pulmonary infiltrates. Smoking cessation advised. On DuoNeb every 6 hourly. Solu-Medrol 40 mg every 8 hourly. Incentive is spirometry. Breathing improved. Does not need a steroid taper as he was only for about 1 day 3. Hypertension: Blood pressure is controlled. 4. Chronic penile injury: Patient seen by Dr. Johnson. Urology consult appreciated. Advised Neosporin topical application. DVT prophylaxis: On Lovenox 40 mils subcu daily. Discharge medication reconciliation done. Discharge follow-up instructions completed. All the prescriptions of cardiac medications, Anoro Ellipta, albuterol inhaler and antihypertensive medications were sent to pharmacy. Patient is also advised to follow-up with customer support engineer, Dr. Gregory for bronchiectasis and COPD found in chest CT for outpatient PFT. Total time spent, exact 35 minutes on discharge meds reconciliation, examination, review of imaging and blood test and discussion with the patient on follow-up instructions. Discharge Activity: Return to Normal Activity Home Medications: Medications to take at Discharge Amlodipine [Norvasc] 2.5 mg PO DAILY #30 tab 10/13/17 Omeprazole [Prilosec] 10 mg PO DAILY 10/13/17 Multivitamin [Multiple Vitamins] 1 each PO DAILY 10/24/17 Cyanocobalamin (Vitamin B-12) [Vitamin B-12] 1,000 mcg PO DAILY 11/03/17 Aspirin E.C. [Ecotrin] 81 mg PO DAILY@0800 #30 tablet 11/04/17 Atorvastatin Calcium [Lipitor] 80 mg PO QHS #30 tablet 11/04/17 Clopidogrel Bisulfate [Plavix] 75 mg PO DAILY #30 tablet 11/04/17 Isosorbide Mononitrate [Imdur] 30 mg PO DAILY #30 tablet 11/04/17 Metformin HCl 500 mg PO BID #60 tablet 11/04/17 Metoprolol Tartrate [Lopressor (beta pierre)] 25 mg PO BID #60 tablet 11/04/17 Neomycin/Bacitracin/Polymyxin [Neosporin Ointment] 1 applic TOPICAL DAILY PRN #1 tube 09/27/18 Nitroglycerin [Nitrostat] 0.4 mg SUBLINGUAL Q5M PRN #100 tablet 11/04/17 Umeclidinium Brm/Vilanterol Tr [Anoro Ellipta 62.5-25 Mcg INH] 1 inh INHALATION DAILY #1 blst.w.dev 11/04/17 Following Prescrptions Were Given to Patient: Aspirin E.C. [Ecotrin] 81 mg PO DAILY@0800 #30 tablet Atorvastatin Calcium [Lipitor] 80 mg PO QHS #30 tablet Clopidogrel Bisulfate [Plavix] 75 mg PO DAILY #30 tablet Isosorbide Mononitrate [Imdur] 30 mg PO DAILY #30 tablet Neomycin/Bacitracin/Polymyxin [Neosporin Ointment] 1 applic TOPICAL DAILY PRN #1 tube PRN Reason: WOUND CARE Nitroglycerin [Nitrostat] 0.4 mg SUBLINGUAL Q5M PRN #100 tablet PRN Reason: Chest Pain Umeclidinium Brm/Vilanterol Tr [Anoro Ellipta 62.5-25 Mcg INH] 1 inh INHALATION DAILY #1 blst.w.dev Metformin HCl 500 mg PO BID #60 tablet Metoprolol Tartrate [Lopressor (beta pierre)] 25 mg PO BID #60 tablet Primary Care Physician: Care Physician,No Primary [Primary Care Provider] - Please follow up with your Primary Care Physician in: in 2 weeks Please Follow Up With: Chandu Perez MD When: in 2-4 weeks to schedule RCA PCI Please Follow Up With: Gal Gregory MD When: FOR Bronchitectasis and COPD IN 4 WEEKS Medical Necessity - Tobacco Use Smoking Status: Current every day smoker Tobacco Use: Cigarettes Meaningful Use Info Meaningful Use Diagnoses (Choose all that apply): None applicable Code Visit Inpatient E&M: 89782 Disch Hosp
[2017-11-04] MEDS: Isosorbide Mononitrate 30 MG Tablet PO (10:14)
[2017-11-04] MEDS: Metoprolol Tartrate 25 MG Tablet PO (10:14)
[2017-11-04] MEDS: Clopidogrel Bisulfate 75 MG Tablet PO (10:14)
[2017-11-04] MEDS: Famotidine 20 MG Tablet PO (10:15)
[2017-11-04] MEDS: amLODIPine 2.5 MG Tablet PO (10:15)
[2017-11-04] MEDS: Multivitamins,Therapeutic Tablet 1 TABLET PO (10:15)
[2017-11-04] MEDS: Aspirin E.C. 81 MG Tablet PO (10:21)
--- NOTE | 2017-11-04 10:47 | CASEMGMT ---
Pt to be sent on Stiloto inhaler but the cost was $300, so after consulting with [facility] pharmacist, script was changed to Anoro and 30 day free trial offer card obtained after ok from pt and given to pt at this time. 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 Tesha LYONS aware, voices understanding. Hugh LYONS CM
== END 2017-11-04 09:42 | disposition home or self-care (01) ==
LOC: ED 04:05 → PCU 05:40
PROVIDERS: Admitting Provider Family Medicine; Emergency Provider Emergency Medicine; Visit Provider Internal Medicine
DX: I20.0 Unstable angina (principal); I10 Essential (primary) hypertension; J44.1 Chronic obstructive pulmonary disease with (acute) exacerbation; Z79.899 Other long term (current) drug therapy; F17.210 Nicotine dependence, cigarettes, uncomplicated; N48.22 Cellulitis of corpus cavernosum and penis; R73.9 Hyperglycemia, unspecified; K21.9 Gastro-esophageal reflux disease without esophagitis; I08.3 Combined rheumatic disorders of mitral, aortic and tricuspid valves; N48.5 Ulcer of penis
CPT/HCPCS: 36415; 71045; 71275; 80048; 80053; 80061; 83735; 84484; 85025; 85027; 85610; 85730; 87804; 93005; 93306; 93458; 94640; 96361; 96374; 96375; 96376; 97803; 99152; 99153; 99218; 99285; 99406; J7030; Q9967; A4216; C1769; C1894; G0378; J2405

== ENCOUNTER 2018-01-06 08:02 | Day surgery (SDC) | payer SELFPAY ==
[2017-12-22 11:31] VITALS: BMI 23.9
[2018-01-05 10:02] VITALS: BMI 23.9
[2018-01-06] VITALS (34 sets, daily range): BP systolic 102–133; BP diastolic 59–104; PULSE 63–89; RESP 9–19; TEMP 36.8–37.4; O2SAT 95–99; BMI 24.3
[2018-01-06 08:18] LABS: Hemoglobin 15.6 g/dl (13.0-16.5); Mean Corp Hgb Conc 34.7 g/gl (32-36); Mean Corpuscular Hgb 33.5 pg (27.0-32.0); Mean Corpuscular Volume 96.8 fL (80-94); Mean Platelet Vol. 9.8 fl (6.2-12.0); Platelet Count 282 K/mm3 (150-450); RBC Distribution Width CV 12.7 % (11.6-14.6); RBC Distribution Width SD 44.2 fl (35.1-43.9); Red Blood Count 4.65 M/mm3 (4.6-6.2); White Blood Count 8.8 K/mm3 (4.4-11.0)
[2018-01-06 08:19] LABS: Scan Indicated on CBC? Y/N NO
[2018-01-06 08:25] LABS: Prothrombin Time (Protime)PT. 13.6 SECONDS (11.7-14.9)
[2018-01-06 08:26] LABS: Partial Thromboplast Time 26.4 Seconds (24.1-36.2)
[2018-01-06 08:34] LABS: BUN 17 mg/dL (7-18); Calcium,Total 8.7 mg/dL (8.5-10.1); Chloride 103 mmol/L (98-107); Creatinine, Serum 1.13 mg/dL (0.70-1.30); EST Glomerular Filtration Rate 72 mL/min (>60); Est Glom Filt Rate - Afr Amer 87 mL/min (>60); Estimated Creatinine Clearance 78.06 ml/min; Glucose 98 mg/dL (74-106); Potassium 3.9 mmol/L (3.5-5.1); Sodium Level 138 mmol/L (136-145)
[2018-01-06 08:35] LABS: Anion Gap 6 (5-15)
--- NOTE | 2018-01-06 10:35 | CL.I_ITS ---
Patient Name: TESFAYE MOORE Study Date: 01/06/2018 Performing: Alverto Serrato MD Ht: 70.07 inches 178 cm : 1965 Wt: 167.55 lbs 76 kg Age: 52 Gender: male BSA: 1.94 PROCEDURE(S) PERFORMED [id number] W OR WO PTCA, SINGLE CORONARY ARTERY CLINICAL PROFILE AND CO-MORBIDITIES Indications: Stable Known CAD, Worsening Angina Heart Failure: None Stress/Imaging Stress/Image Study Performed: No Angina Classification Anginal Classification w/in 2 Weeks: CCS III CAD Presentations: Unstable angina. Comorbidities/Risk Factors: Current/Recent Smoker (< 1year) Hypertension Dyslipidemia Diabetes Mellitus: Diabetes Therapy: Oral CONCLUSIONS Successful PTCA/JOCELINE proximal RCA with a 3.5 x 38 Promus Synergy, post dilated with a 3.75 and 4.0 NC Balloon; 75%-->0%, no dissection. RECOMMENDATIONS Highly recommend quitting all tobacco products Follow up with primary medical malpractice paralegal Risk factor modification ASA Indefinitley Plavix for at least 12 months Routine post interventional care Refer for Outpatient Cardiac Rehab Manual sheath removal per protocol Follow up with Dr. Perez Manual sheath removal. DESCRIPTION OF PROCEDURE The patient arrived to the procedure lab. The risks and benefits of the procedure as well as a full d escription of our services here and current unavailability of surgical backup were fully explained to the patient and/or their significant other prior to the catheterization. The Timeout was completed, verifying the correct patient and procedure. The patient's procedural site was prepped and draped in the usual fashion. Local anesthetic was given subcutaneously to right groin region with Lidocaine 2%. Using a modified Seldinger technique, arterial access was obtained via the right femoral artery, a 6 Fr 45 cm sheath was inserted.. AL 1 Guide catheter was inserted and engaged into the RCA. BMW Guide wire was advanced to the RCA . HS 1 Guide catheter was inserted and engaged into the RCA. BMW Guide wire was advanced to the RCA. 2.0x12 emerge Balloon catheter was advanced across lesion in the right coronary, proximal. PTCA ballo on inflated at 8 atms for 8 secs. PTCA balloon inflated at 8 atms for 6 secs. Angiogram performed pos t balloon dilatation. 3.0x38 synergy Drug Eluting stent was advanced across the lesion in the right c oronary, proximal. 3.5x12 NC Emerge Balloon catheter was inserted post stent. Angiogram performed pos t stent deployment. 3.75x12 NC Emerge Balloon catheter was inserted post stent. Angiogram performed p ost balloon dilatation. 4.0x8 NC Emerge Balloon catheter was inserted post stent. PTCA balloon inflat ed at 12 atms for 5 secs. The arterial sheath was exchanged to upsize due to bleeding around the ins ertion site INTERVENTION INFORMATION LESION SITE: RCA (Proximal) Lesion Complexity: High/C, lesion at bifurcation: No, thrombus present: No, lesion length: 38 mm, cul prit lesion: Yes Pre Stenosis: 75 % Pre intervention CHERRY flow: 3 PROCEDURE: Drug Eluting Stent with pre and post dilatation Post Stenosis: 0 % Post intervention CHERRY flow: 3 Lesion Devices: Medtronic 6 Fr AL1.0 100cm Guide Catheter Gonzalez .014 BMW [place] Straight 190cm Medtronic 6 Fr HS1 100cm Guide Catheter Dez Sci EMERGE MR 2.00x12 BALLOON Dez Sci Synergy MR JOCELINE 3.00x38 Dez Sci NC EMERGE MR 3.50x12 BALLOON Dez Sci NC EMERGE MR 3.75x12 BALLOON Dez Sci NC EMERGE MR 4.00x08 BALLOON COMPLICATIONS No Complications PROCEDURE MEDICATIONS Oxygen: 2 L/min via nasal cannula Heparin 6000 unit(s) IV 01/06/2018 09:51:42 Nitro 200 mcg IC 01/06/2018 10:03:19 Nitro 200 mcg IC 01/06/2018 10:03:19 Plavix 75 mg PO 01/06/2018 08:35:44 Zofran 4 mg IV 01/06/2018 09:55:17 IV Bolus: .9 NaCl 800 ml total 01/06/2018 10:32:22 SUMMARY OF HEMODYNAMIC DATA Time AIR REST ECG 08:42:07 AO 137/78 (106) SA 09:54:32 Signed By Alverto Serrato MD On 01/06/2018 10:35:09 AM Alverto Serrato MD
[2018-01-06 10:51] LABS: ACT Activated Clotting Time 208 sec (74-137)
[2018-01-06] MEDS: 0.9% Normal Saline 1,000 ML 150 ML IV (11:00)
--- NOTE | 2018-01-06 11:36 | EKG12_ITS ---
Test Reason : POST STENT Blood Pressure : / mmHG Vent. Rate : 071 BPM Atrial Rate : 071 BPM P-R Int : 146 ms QRS Dur : 092 ms QT Int : 422 ms P-R-T Axes : 057 081 072 degrees QTc Int : 458 ms Normal sinus rhythm Normal ECG Confirmed by ABDIRASHID GRIGSBY, JOSE ([id number]), loan expeditor LAUREN WILSON ([id number] on 01/13/2018 3:14:58 PM Referred By: Alverto Serrato Confirmed By:JOSE MENDENHALL MD
--- NOTE | 2018-01-06 12:21 | CRPHASE1 ---
Patient Data/Charges Phase II Referral:: [facility] Start Phase II:: FOLLOWING OFFICE VISIT WITH MAIL ORDER CLERK Risk Factors/Lifestyle Smoking Status: Current every day smoker Hx Hypertension: Yes Hx Diabetes Mellitus Type 2: Yes Hx Metabolic Disorders: No Hx Dyslipidemia: Yes Hx Obesity: No Height: 5 ft 10 in - BMI 24.4 Stress: Home/Family Substance Abuse: Yes - MARIJUANA Risk Factor for Sedentary Lifestyle: Moderate Risk Family History: Family History (Last Reviewed 12/22/17 @ 11:32 by Dayanna Lauren) Mother Heart disease Father Cancer Phase I Education Given On:: Healy, Nutrition, Antiplatelet medication, Smoking cessation, Diabetes - Type II Issues Affecting Care:: None Knowledge of Condition:: Yes Learning Preferences: Verbal, Written - AT BEDSIDE Hospital Course Presenting Symptoms:: CHEST DISCOMFORT Medical/Surgical History ID:: No CAD:: No Diabetes:: Yes Diabetes Type II:: Yes Hypertension:: Yes Dyslipidemia:: Yes Discharge/Home/Social Eval Discharge Disposition: Home Marital Status:
--- NOTE | 2018-01-06 12:24 | CRPHASE1_ITS ---
Patient Data/Charges Phase II Referral:: [facility] Start Phase II:: FOLLOWING OFFICE VISIT WITH WRECKING MECHANIC Risk Factors/Lifestyle Smoking Status: Current every day smoker Hx Hypertension: Yes Hx Diabetes Mellitus Type 2: Yes Hx Metabolic Disorders: No Hx Dyslipidemia: Yes Hx Obesity: No Height: 5 ft 10 in - BMI 24.4 Stress: Home/Family Substance Abuse: Yes - MARIJUANA Risk Factor for Sedentary Lifestyle: Moderate Risk Family History: Family History (Last Reviewed 12/22/17 @ 11:32 by Dayanna Lauren) Mother Heart disease Father Cancer Phase I Education Given On:: Kimberly, Nutrition, Antiplatelet medication, Smoking cessation, Diabetes - Type II Issues Affecting Care:: None Knowledge of Condition:: Yes Learning Preferences: Verbal, Written - AT BEDSIDE Hospital Course Presenting Symptoms:: CHEST DISCOMFORT Medical/Surgical History MA:: No CAD:: No Diabetes:: Yes Diabetes Type II:: Yes Hypertension:: Yes Dyslipidemia:: Yes Discharge/Home/Social Eval Discharge Disposition: Home Marital Status:
--- NOTE | 2018-01-06 12:26 | CRPH1.INST_ITS ---
General Education CAD and cardiac anatomy and function:: Patient communicates acknowledgment - AT BEDSIDE, Family communicates acknowledgment Explanation of diagnoses and procedures:: Patient communicates acknowledgment, Family communicates acknowledgment Sign/Symptoms of UT:: Patient communicates acknowledgment, Family communicates acknowledgment Antiplatelet therapy: Patient communicates acknowledgment, Family communicates acknowledgment Proper use of NTG-SL: Not instructed Emergency procedures and activation of EMS: Patient communicates acknowledgment, Family communicates acknowledgment Compliance of all prescribed medications: Patient communicates acknowledgment, Family communicates acknowledgment Smoking Patient Nicotine/Smoking Risk Factors Are:: Cigarettes Recommendations Include:: Participation in a smoking cessation program Nicotine/Smoking Response Code:: Patient communicates acknowledgment, Family communicates acknowledgment Dyslipidemia Patient Dyslipidemia Risk Factors Are:: Total Cholesterol, Triglycerides, HDL, LDL Recommendations Include:: Lipid profile provided, Reviewed NCEP/ATP guidelines, Therapeutic Lifestyle Change dietary guidelines Dyslipidemia Response Code:: Patient communicates acknowledgment, Family communicates acknowledgment Overweight/Obesity Patient Overweight/Obesity Risk Factors Are:: BMI Normal [18-25 & < 65 years o ld] Hypertension Recommendations Include:: BP <130/80 if diabetic, DASH dietary guidelines, Decrease/maintain normal body weight, Moderation of ETOH Hypertension:: Patient communicates acknowledgment, Family communicates acknowledgment Diabetes Patient Diabetes Risk Factors Are:: Elevated blood sugars Recommendations Include:: Maintain fasting blood sugars 70-110 md/dL, Maintain HgbA1c of 6% or less, Monitor blood sugar as prescribed, Diabetic dietary guidelines, Decrease/maintain body weight Diabetes:: Patient communicates acknowledgment, Family communicates acknowledgment Metabolic Syndrome Recommendations Include:: Does not meet criteria Sedentary Patient Sedentary Risk Factors Are:: Lack of regular exercise Recommendations Include:: Aerobic exercise 5-7 times/week for 20-30 minutes continuously, Benefits of regular exercise, Discussed home walking program, Monitored Outpatient Cardiac Rehab Sedentary Response Code:: Patient communicates acknowledgment, Family communicates acknowledgment Stress Recommendations Include:: Identification of stressors, and assessment of coping skills, Stress management techniques Stress Response Code:: Patient communicates acknowledgment, Family communicates acknowledgment
[2018-01-06 13:15] LABS: ACT Activated Clotting Time 136 sec (74-137)
[2018-01-06] MEDS: diazePAM 5 MG Tablet PO (15:25)
[2018-01-06] MEDS: Acetaminophen 325 MG Tablet 650 MG PO (15:25)
--- NOTE | 2018-01-06 16:45 | PCM.DC.CCA ---
Discharge Diet: Low fat/ Low Cholesterol Discharge Activity: Return to Normal Activity May shower in (days): 1 May resume sexual activity in: 1-2 weeks Lifting Restrictions: Do not lift anything greater than 10 pounds for 3 days Call your doctor if your incision/area has: Continuous Slow Oozing, Sudden Increased Bleeding, Increased Pain/ Swelling, Increased Redness, Foul Smelling Discharge, Swelling at the incision site Call your doctor if you observe: Fever of 101 or Higher, Shortness of breath, Chest pain Remove Dressing in (days):: 1 Cleanse incision/area with: Soap & Water Additional Instructions: You will continue with aspirin and Plavix therapy. You will stay on Plavix for at least one year. If anyone asks you to stop this medication, please contact the [facility] office first at [phone]. You are scheduled for an office appointment with the [facility] on 01/20/2018 at 11:00 AM. You may be contacted by cardiac rehab prior to this appointment. Allergies/Adverse Reactions: Allergies No Known Allergies Allergy (Verified 12/22/17 11:32) Medications to take at Discharge Omeprazole [Prilosec] 10 mg PO DAILY 10/13/17 Multivitamin [Multiple Vitamins] 1 ea PO DAILY 10/24/17 Aspirin E.C. [Ecotrin] 81 mg PO DAILY@0800 #30 tab 11/04/17 Metformin HCl 500 mg PO BID #60 tab 11/04/17 Neomycin/Bacitracin/Polymyxin [Neosporin Ointment] 1 applic TOPICAL DAILY PRN #1 tube 11/04/17 Nitroglycerin [Nitrostat] 0.4 mg SUBLINGUAL Q5M PRN #100 tab 11/04/17 Umeclidinium Brm/Vilanterol Tr [Anoro Ellipta 62.5-25 Mcg INH] 1 inh INHALATION DAILY #1 blst.w.dev 11/04/17 buspirone 10 mg tablet 10 mg PO DAILY tab 11/25/17 cyanocobalamin (vit B-12) 1,000 mcg tablet 1,000 mcg PO DAILY 11/25/17 amlodipine 2.5 mg tablet 2.5 mg PO DAILY #90 tab 12/07/17 atorvastatin 80 mg tablet 80 mg PO QHS #90 tab 12/07/17 clopidogrel 75 mg tablet 75 mg PO DAILY #90 tab 12/07/17 metoprolol tartrate 25 mg tablet 25 mg PO BID #180 tab 12/07/17 ranolazine ER 500 mg tablet,extended release,12 hr 500 mg PO BID #60 tab 12/22/17 Primary Care Physician: Care Physician,No Primary [Primary Care Provider] - Test Results: Test results from this visit will be discussed in further detail at your follow-up appointment, if applicable. Please Follow Up With: Ildefonso Brown Nurse Practitioner When: 01/20/2018 at 11:00 AM Proposed Discharge Date: 01/07/18 Cardiac Rehabilitation Info Cardiac Rehabilitation Program Information: Cardiac Rehabilitation is important for patients like you who are recovering from a heart problem. Cardiac rehabilitation programs are recognized as integral to the continued care of the patient with coronary heart disease. The cardiac rehabilitation program is designed to optimize a patient's physical, psychological, and social functioning. Health palliative care physician work in cardiac rehabilitation programs and assist you with getting the treatments you need to get stronger and healthier - like exercise, healthy eating habits, and medications. Cardiac rehabilitation has been show to help people with heart problems live longer and have better life enjoyment than people who do not go to cardiac rehabilitation. Please contact the Cardiac Rehabilitation Program at [facility] at in two weeks if you have not heard from them.
--- NOTE | 2018-01-06 16:48 | DCINST_ITS ---
Discharge Diet: Low fat/ Low Cholesterol Discharge Activity: Return to Normal Activity May shower in (days): 1 May resume sexual activity in: 1-2 weeks Lifting Restrictions: Do not lift anything greater than 10 pounds for 3 days Call your doctor if your incision/area has: Continuous Slow Oozing, Sudden Increased Bleeding, Increased Pain/ Swelling, Increased Redness, Foul Smelling Discharge, Swelling at the incision site Call your doctor if you observe: Fever of 101 or Higher, Shortness of breath, Chest pain Remove Dressing in (days):: 1 Cleanse incision/area with: Soap & Water Additional Instructions: You will continue with aspirin and Plavix therapy. You will stay on Plavix for at least one year. If anyone asks you to stop this medication, please contact the [facility] office first at [phone]. You are scheduled for an office appointment with the [facility] on 01/20/2018 at 11:00 AM. You may be contacted by cardiac rehab prior to this appointment. Allergies/Adverse Reactions: Allergies No Known Allergies Allergy (Verified 12/22/17 11:32) Medications to take at Discharge Omeprazole [Prilosec] 10 mg PO DAILY 10/13/17 Multivitamin [Multiple Vitamins] 1 ea PO DAILY 10/24/17 Aspirin E.C. [Ecotrin] 81 mg PO DAILY@0800 #30 tab 11/04/17 Metformin HCl 500 mg PO BID #60 tab 11/04/17 Neomycin/Bacitracin/Polymyxin [Neosporin Ointment] 1 applic TOPICAL DAILY PRN #1 tube 11/04/17 Nitroglycerin [Nitrostat] 0.4 mg SUBLINGUAL Q5M PRN #100 tab 11/04/17 Umeclidinium Brm/Vilanterol Tr [Anoro Ellipta 62.5-25 Mcg INH] 1 inh INHALATION DAILY #1 blst.w.dev 11/04/17 buspirone 10 mg tablet 10 mg PO DAILY tab 11/25/17 cyanocobalamin (vit B-12) 1,000 mcg tablet 1,000 mcg PO DAILY 11/25/17 amlodipine 2.5 mg tablet 2.5 mg PO DAILY #90 tab 12/07/17 atorvastatin 80 mg tablet 80 mg PO QHS #90 tab 12/07/17 clopidogrel 75 mg tablet 75 mg PO DAILY #90 tab 12/07/17 metoprolol tartrate 25 mg tablet 25 mg PO BID #180 tab 12/07/17 ranolazine ER 500 mg tablet,extended release,12 hr 500 mg PO BID #60 tab 12/22/17 Primary Care Physician: Care Physician,No Primary [Primary Care Provider] - Test Results: Test results from this visit will be discussed in further detail at your follow-up appointment, if applicable. Please Follow Up With: Ildefonso Brown Nurse Practitioner When: 01/20/2018 at 11:00 AM Proposed Discharge Date: 01/07/18 Cardiac Rehabilitation Info Cardiac Rehabilitation Program Information: Cardiac Rehabilitation is important for patients like you who are recovering from a heart problem. Cardiac rehabilitation programs are recognized as integral to the continued care of the patient with coronary heart disease. The cardiac rehabilitation program is designed to optimize a patient's physical, psychological, and social functioning. Health intensive care anaesthetist work in cardiac rehabilitation programs and assist you with getting the treatments you need to get stronger and healthier - like exercise, healthy eating habits, and medications. Cardiac rehabilitation has been show to help people with heart problems live longer and have better life enjoyment than people who do not go to cardiac rehabilitation. Please contact the Cardiac Rehabilitation Program at [facility] at in two weeks if you have not heard from them.
[2018-01-06 17:00] LABS: Bedside Glucose 91 mg/dL (70-110)
--- NOTE | 2018-01-06 21:12 | NURSING ---
Addendum entered by Stefan Nixon 01/06/18 21:13: BEDREST WAS COMPLETED AT 2030 AND THE PATIENT AMBULATED AT THAT TIME. Original Note: BEDREST COMPLETE. AMBULATED THE PATIENT IN THE HALLWAY WITHOUT DIFFICULTY.
[2018-01-06] MEDS: Metoprolol Tartrate 25 MG Tablet PO (21:22)
[2018-01-06] MEDS: Atorvastatin Calcium 80 MG Tablet PO (21:22)
[2018-01-06] MEDS: Ranolazine 500 MG Tablet PO (21:22)
[2018-01-06 23:26] LABS: Bedside Glucose 151 mg/dL (70-110)
[2018-01-07] VITALS (14 sets, daily range): BP systolic 95–150; BP diastolic 45–92; PULSE 59–77; RESP 10–21; TEMP 36.2–37.1; O2SAT 95–99
[2018-01-07 03:27] LABS: Bedside Glucose 96 mg/dL (70-110)
[2018-01-07] MEDS: 0.9% NaCl Peripheral Flush Adult/Peds IV ×2 (05:31→05:32)
[2018-01-07 05:42] LABS: Hematocrit 41.4 % (40-54); Hemoglobin 14.2 g/dl (13.0-16.5); Mean Corp Hgb Conc 34.3 g/gl (32-36); Mean Corpuscular Hgb 32.9 pg (27.0-32.0); Mean Corpuscular Volume 95.8 fL (80-94); Mean Platelet Vol. 9.5 fl (6.2-12.0); Platelet Count 235 K/mm3 (150-450); RBC Distribution Width CV 12.9 % (11.6-14.6); RBC Distribution Width SD 45.2 fl (35.1-43.9); Red Blood Count 4.32 M/mm3 (4.6-6.2); White Blood Count 7.7 K/mm3 (4.4-11.0)
[2018-01-07 05:47] LABS: Scan Indicated on CBC? Y/N NO
[2018-01-07 05:56] LABS: Anion Gap 7 (5-15); BUN 14 mg/dL (7-18); BUN/Creat Ratio 14.4 RATIO (10-20); Calcium,Total 8.3 mg/dL (8.5-10.1); Chloride 108 mmol/L (98-107); Cholesterol 120 mg/dL (200); Creatinine, Serum 0.97 mg/dL (0.70-1.30); EST Glomerular Filtration Rate 86 mL/min (>60); Est Glom Filt Rate - Afr Amer 104 mL/min (>60); Estimated Creatinine Clearance 90.94 ml/min; Glucose 99 mg/dL (74-106); High Density Lipoprotein 41 mg/dL; Potassium 4.2 mmol/L (3.5-5.1); Sodium Level 141 mmol/L (136-145); Triglycerides 72 mg/dL; Very Low Density Lipoprotein 14 mg/dL (5-40)
[2018-01-07 07:16] LABS: Bedside Glucose 106 mg/dL (70-110)
[2018-01-07] MEDS: Aspirin E.C. 81 MG Tablet PO (09:15)
[2018-01-07] MEDS: Multivitamins,Therapeutic Tablet 1 TABLET PO (09:15)
[2018-01-07] MEDS: busPIRone 5 MG Tablet 10 MG PO (09:16)
[2018-01-07] MEDS: Metoprolol Tartrate 25 MG Tablet PO (09:16)
[2018-01-07] MEDS: Clopidogrel Bisulfate 75 MG Tablet PO (09:17)
[2018-01-07] MEDS: Ranolazine 500 MG Tablet PO (09:17)
[2018-01-07] MEDS: Cyanocobalamin 500 MCG Tablet 1000 MCG PO (09:17)
[2018-01-07] MEDS: amLODIPine 2.5 MG Tablet PO (09:17)
[2018-01-07] MEDS: Pantoprazole Sodium 20 MG Tablet PO (09:20)
--- NOTE | 2018-01-07 09:38 | PCM.PN.CARD ---
Subjectve: Patient doing very well, in fact feels much better after his angioplasty. No chest pain overnight. Telemetry negative. EKG shows normal sinus rhythm, no acute changes. Right groin is clean/dry/intact, no thrills, bruits or hematoma. Creatinine and hemoglobin within nominal limits. Objective: Vital Signs Temp Pulse Resp BP Pulse Ox 98.7 F 76 21 H 150/92 H 99 01/07/18 08:00 01/07/18 09:16 01/07/18 09:00 01/07/18 09:16 01/07/18 09:00 Oxygen Delivery Method Room Air Weight: 166 lb 14.239 oz Body Mass Index (BMI) 24.3 Intake and Output for Last 24 Hours 01/05/18 01/06/18 01/07/18 23:59 23:59 23:59 Intake Total 1284 / 1284 881 / 881 Output Total 350 / 350 500 / 500 Balance 934 / 934 381 / 381 General: Awake, Alert, Oriented x 3 HEENT: PERRL, EOMI, Sclera Non Icteric Neck: Supple, Good ROM, No Lymph Node Enlargement Lungs: Clear to auscultation Cardiovascular: Regular Rhythm, Normal S1, Normal S2, No Murmurs, No Rubs, No Gallops Vascular: No Carotid Bruits, Normal Femoral Pulses, Normal Radial Pulses, Normal Dorsalis Pedal Pulse, Normal Posterior Tibial Pulses Abdomen: Bowel Sounds Present, Soft, Non Tender, No HSM, No Organomegaly Extremities: No Cyanosis, No Clubbing, No edema Neurological: No Focal Motor or Sensory Deficit 01/07/18 05:25: Sodium 141, Potassium 4.2, Chloride 108 H, Carbon Dioxide 26.0, Anion Gap 7, BUN 14, Creatinine 0.97, Est GFR (MDRD) Af Amer 104, Est GFR (MDRD) Non-Af 86, BUN/Creatinine Ratio 14.4, Glucose 99, Calcium 8.3 L, Triglycerides 72, Cholesterol 120, LDL Cholesterol 65, VLDL Cholesterol 14, HDL Cholesterol 41 01/07/18 05:25: WBC 7.7, RBC 4.32 L, Hgb 14.2, Hct 41.4, MCV 95.8 H, MCH 32.9 H, MCHC 34.3, RDW 12.9, RDW Differential 45.2 H, Plt Count 235, MPV 9.5 Rhythm: EKG: ECHO: Stress Test: Cardiac Cath: PCI: CT Surgery: Holter monitor: EPS: PPM: CXR: Chest CT Scan: Medical Necessity - Tobacco Use Smoking Status: Current every day smoker Assessment/Plan 1. Coronary artery disease: Patient is status post angioplasty and drug-eluting stent to the proximal right coronary artery with an excellent result. Recommend continuing baby aspirin for life, Plavix for at least one year, preferably 2 years given the length of the stent and size of the vessel. He will continue antihypertensive medications and be enrolled in cardiac rehab in 1-2 weeks time. He will follow-up with our nurse Fregoso in the office in 2 weeks time for a groin check. 2. Hyperlipidemia: Continue statin based medications. Repeat lipid profile at the end of cardiac rehab. 3. Tobacco cessation: I had a long and thorough discussion with the patient regarding tobacco use, and strongly recommended he discontinue all tobacco products. 4. Patient may be discharged home. Patient will follow-up with Dr. Perez. Code Visit Inpatient E&M: 97734 Subs Hosp L2
--- NOTE | 2018-01-07 10:00 | EKG12_ITS ---
Test Reason : AM EKG Blood Pressure : / mmHG Vent. Rate : 064 BPM Atrial Rate : 064 BPM P-R Int : 150 ms QRS Dur : 094 ms QT Int : 430 ms P-R-T Axes : 070 084 079 degrees QTc Int : 443 ms Normal sinus rhythm Normal ECG Confirmed by ABDIRASHID GRIGSBY, JOSE ([id number]), editor map LAUREN WILSON ([id number] on 01/13/2018 3:14:42 PM Referred By: Alverto Serrato Confirmed By:JOSE MENDENHALL MD
--- OUTSIDE RECORDS SUMMARY | 2018-03-03 07:47 | XMS RPT_ITS ---
:1965 Author Organization OHIP Support Name Relationship Address Phone TERESA, SARAH Unavailable [address] + [place] [address] UE Unavailable Unavailable Unavailable KRAHENBUHL, SARAH Unavailable [address] + [place] [address] UE Unavailable Unavailable Unavailable KRAHENBUHL, SARAH Unavailable [address] + [place] [address] UE Unavailable Unavailable Unavailable KRAHENBUHL, SARAH Unavailable [address] + [place] [address] UE Unavailable Unavailable Unavailable KRAHENBUHL, SARAH Unavailable [address] + [place] [address] UE Unavailable Unavailable Unavailable KRAHENBUHL, SARAH Unavailable [address] + [place] [address] UE Unavailable Unavailable Unavailable KRAHENBUHL, SARAH Unavailable [address] + [place] [address] UE Unavailable Unavailable Unavailable KRAHENBUHL, SARAH Unavailable [address] + [place] [address] UE Unavailable Unavailable Unavailable KRAHENBUHL, SARAH Unavailable [address] + [place] [address] UE Unavailable Unavailable Unavailable KRAHENBUHL, SARAH Unavailable [address] + [place] [address] UE Unavailable Unavailable Unavailable KRAHENBUHL, SARAH Unavailable [address] + [place] [address] UE Unavailable Unavailable Unavailable KRAHENBUHL, SARAH Unavailable [address] + [place] [address] UE Unavailable Unavailable Unavailable KRAHENBUHL, SARAH Unavailable [address] + [place] [address] UE Unavailable Unavailable Unavailable KRAHENBUHL, SARAH Unavailable [address] + [place] [address] UE Unavailable Unavailable Unavailable [facility] Unavailable Unavailable + KRAHENBUHL, SARAH Unavailable [address] + [place] [address] UE Unavailable Unavailable Unavailable Care Team Providers Name Role Phone Wayne Whitt Attending Unavailable PROVIDER, UNKNOWN Referring Unavailable No, PCP Primary Care Unavailable UCHE CROSS Attending Unavailable Alverto Griffin Attending Unavailable Alverto Griffin Referring Unavailable Primay Care Physicia, No Primary Care Unavailable Woo Johnson Attending Unavailable Primay Care Physicia, No Primary Care Unavailable Agyepong, Michael Admitting Unavailable Paintsil, [place] Attending Unavailable Woo Johnson Consulting Unavailable Dez Aguilar Consulting Unavailable Agyepong, Michael Admitting Unavailable Agyepong, Michael Attending Unavailable Primay Care Physicia, No Primary Care Unavailable Agyepong, Michael Consulting Unavailable Primay Care Physicia, No Primary Care Unavailable Rito Woods Attending Unavailable Primay Care Physicia, No Primary Care Unavailable White, Cassandra Admitting Unavailable Moodispaw, Chandu Consulting Unavailable Keeann, Kris Attending Unavailable AlexWoo waldropJakub Consulting Unavailable White, Cassandra Admitting Unavailable White, Cassandra Attending Unavailable Primay Care Physicia, No Primary Care Unavailable White, Cassandra Consulting Unavailable White, Cassandra Admitting Unavailable Moodispaw, Chandu Attending Unavailable Primay Care Physicia, No Primary Care Unavailable [place], Chandu Consulting Unavailable Keenan, Kris Consulting Unavailable White, Cassandra Admitting Unavailable [place], Chandu Attending Unavailable Primay Care Physicia, No Primary Care Unavailable [place], Chandu Consulting Unavailable Alex, Jakub Consulting Unavailable Keenan, Kris Consulting Unavailable White, Cassandra Admitting Unavailable Keenan, Kris Attending Unavailable Primay Care Physicia, No Primary Care Unavailable Moodispaw, Chandu Consulting Unavailable Alex, Jakub Consulting Unavailable Keenan, Kris Consulting Unavailable Dayanna Lauren Attending Unavailable Moodisp[place], Chandu Attending Unavailable Primay Care Physicia, No Referring Unavailable Moodselenaambar Chandu Attending Unavailable Primay Care Physicia, No Referring Unavailable Alverto Griffin Attending Unavailable Primay Care Physicia, No Primary Care Unavailable Alverto Griffin Referring Unavailable Alverto Griffin Attending Unavailable Alverto Griffin Referring Unavailable Primay Care Physicia, No Primary Care Unavailable Alverto Griffin Consulting Unavailable PROBLEMS PROBLEMS DATE TYPE CONDITION / CODE ATTENDING STATUS SOURCE 01/07/2018 Unknown I25.10 - Alverto Griffin Active [facility] heart disease [facility] [place] coronary Repository artery without angina pectoris / I25.10(ICD-10) 01/07/2018 Unknown I20.9 - Angina Griffin Alverto Active [facility] pectoris, Community unspecified / Hospital I20.9(ICD-10) Repository 12/22/2017 Unknown I20.0 - Unstable Moodisp[place], Active [facility] angina / [facility] I20.0(ICD-10) Hospital Repository 12/02/2017 Active Angina pectoris, [place], Active [facility] unspecified / [facility] Other I20.9(ICD-10) [place] Repository 11/25/2017 Unknown R07.9 - Chest pain, Moodisp[place], Active [facility] unspecified / [facility] R07.9(ICD-10) Hospital Repository 10/13/2017 Unknown N48.89 - Other Paintsil, [place] Active [facility] specified disorders Community of penis / Hospital N48.89(ICD-10) Repository 10/10/2017 Admitting Other specified Peri, Active [facility] disorders of penis / [facility] N48.89(ICD-10) Repository 10/10/2017 Admitting Nicotine dependence, Peri, Active [facility] cigarettes, [facility] uncomplicated / Repository F17.210(ICD-10) 10/10/2017 Admitting Other specified Peri, Active [facility] disorders of the [facility] male genital organs Repository / N50.89(ICD-10) 10/07/2017 Unknown S30.812S - Abrasion AlexWoo Active [place] of penis, sequela / [facility] Community S30.812S(ICD-10) Hospital Repository PROCEDURES PROCEDURES No Procedure Records FoundRESULTS RESULTS 12 LEAD ELECTROCARDIOGRAM Observed: 01/13/2018 Status: F Source: ERNEST 3:15 PM [facility] REPOSITORY [facility] Cardiovascular Services [address] [place] [address] 12 Lead EKG 01/06/18 1102 MR#: [id number] Acct: [id number] Name: TSEFAYE FRAUSTO Jr. Rep #: [id number] : 1965 52 From: Chandu Mendenhall MD Attending Dr: Alverto Griffin MD Status: DEP SDC Ordering Dr: Alverto Griffin MD Date: 01/06/18 Location: [facility] Sex: M C Admitted: Test Reason : POST STENT Blood Pressure : / mmHG Vent. Rate : 071 BPM Atrial Rate : 071 BPM P-R Int : 146 ms QRS Dur : 092 ms QT Int : 422 ms P-R-T Axes : 057 081 072 degrees QTc Int : 458 ms Normal sinus rhythm Normal ECG Confirmed by ABDIRASHID GRIGSBY, CHANDU ([id number]), web editor LAUREN WILSON ([id number]) on 01/13/2018 3:14:58 PM Referred By: Alverto Griffin Confirmed By:CHANDU MENDENHALL MD 01/13/18 1515 Date Chandu Mendenhall MD CC: No Primary Care Physician; Alverto Griffin MD Signed 12 LEAD ELECTROCARDIOGRAM Observed: 01/13/2018 Status: F Source: ERNEST 3:14 PM [facility] Cardiovascular Services [address] [place] [address] 12 Lead EKG 01/07/18 0522 MR#: [id number] Acct: [id number] Name: CHIDIPARVEENKARTIKTESFAYE Jr. Rep #: [id number] : 1965 52 From: Chandu Mendenhall MD Attending Dr: Avlerto Griffin MD Status: DEP MIC Ordering Dr: Alverto Griffin MD Date: 01/07/18 Location: [facility] Sex: M C Admitted: Test Reason : AM EKG Blood Pressure : / mmHG Vent. Rate : 064 BPM Atrial Rate : 064 BPM P-R Int : 150 ms QRS Dur : 094 ms QT Int : 430 ms P-R-T Axes : 070 084 079 degrees QTc Int : 443 ms Normal sinus rhythm Normal ECG Confirmed by ABDIRASHID GRIGSBY, CHANDU ([id number]), web editor LAUREN WILSON ([id number]) on 01/13/2018 3:14:42 PM Referred By: Alverto Griffin Confirmed By:CHANDU MENDENHALL MD 01/13/18 1514 Date Chandu Mendenhall MD CC: No Primary Care Physician; Alverto Griffin MD Signed DISCHARGE INSTRUCTION Observed: 01/07/2018 Status: F Source: ERNEST 8:09 AM [facility] REPOSITORY [facility] Medical Records Department [address] [place] [address] Instructions for Home/Discharge Instructions 01/06/18 1645 MR#: [id number] Acct: [id number] Name: TESFAYE FRAUSTO Jr. 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[employer] PCP: Care Physician, No Primary Status: REG SDC Discharge Diet: Low fat/ Low Cholesterol Discharge Activity: Return to Normal Activity May shower in (days): 1 May resume sexual activity in: 1-2 weeks Lifting Restrictions: Do not lift anything greater than 10 pounds for 3 days Call your doctor if your incision/area has: Continuous Slow Oozing, Sudden Increased Bleeding, Increased Pain/ Swelling, Increased Redness, Foul Smelling Discharge, Swelling at the incision site Call your doctor if you observe: Fever of 101 or Higher, Shortness of breath, Chest pain Remove Dressing in (days):: 1 Cleanse incision/area with: Soap AND Water Additional Instructions: You will continue with aspirin and Plavix therapy. You will stay on Plavix for at least one year. If anyone asks you to stop this medication, please contact the [facility] office first at [phone]. You are scheduled for an office appointment with the [facility] on 01/20/2018 at 11:00 AM. You may be contacted by cardiac rehab prior to this appointment. Allergies/Adverse Reactions: Allergies No Known Allergies Allergy (Verified 12/22/17 11:32) Medications to take at Discharge Omeprazole [Prilosec] 10 mg PO DAILY 10/13/17 Multivitamin [Multiple Vitamins] 1 ea PO DAILY 10/24/17 Aspirin E.C. [Ecotrin] 81 mg PO DAILY@0800 #30 tab 11/04/17 Metformin HCl 500 mg PO BID #60 tab 11/04/17 Neomycin/Bacitracin/Polymyxin [Neosporin Ointment] 1 applic TOPICAL DAILY PRN #1 tube 11/04/17 Nitroglycerin [Nitrostat] 0.4 mg SUBLINGUAL Q5M PRN #100 tab 11/04/17 Umeclidinium Brm/Vilanterol Tr [Anoro Ellipta 62.5-25 Mcg INH] 1 inh INHALATION DAILY #1 blst.w.dev 11/04/17 buspirone 10 mg tablet 10 mg PO DAILY tab 11/25/17 cyanocobalamin (vit B-12) 1,000 mcg tablet 1,000 mcg PO DAILY 11/25/17 amlodipine 2.5 mg tablet 2.5 mg PO DAILY #90 tab 12/07/17 atorvastatin 80 mg tablet 80 mg PO QHS #90 tab 12/07/17 clopidogrel 75 mg tablet 75 mg PO DAILY #90 tab 12/07/17 metoprolol tartrate 25 mg tablet 25 mg PO BID #180 tab 12/07/17 ranolazine ER 500 mg tablet,extended release,12 hr 500 mg PO BID #60 tab 12/22/17 Primary Care Physician: Care Physician,No Primary [Primary Care Provider] - Test Results: Test results from this visit will be discussed in further detail at your follow-up appointment, if applicable. Please Follow Up With: Ildefonso Brown Nurse Practitioner When: 01/20/2018 at 11:00 AM Proposed Discharge Date: 01/07/18 Cardiac Rehabilitation Info Cardiac Rehabilitation Program Information: Cardiac Rehabilitation is important for patients like you who are recovering from a heart problem. Cardiac rehabilitation programs are recognized as integral to the continued care of the patient with coronary heart disease. The cardiac rehabilitation program is designed to optimize a patient's physical, psychological, and social functioning. Health farm or ranch animal caretaker work in cardiac rehabilitation programs and assist you with getting the treatments you need to get stronger and healthier - like exercise, healthy eating habits, and medications. Cardiac rehabilitation has been show to help people with heart problems live longer and have better life enjoyment than people who do not go to cardiac rehabilitation. Please contact the Cardiac Rehabilitation Program at [facility] at in two weeks if you have not heard from them. 01/07/18 0809 <Electronically signed by Ildefonso AARON> Date Ildefonso BOWENSC CC: No Primary Care Physician BEDSIDE GLUCOSE Collected: 01/07/2018 Status: F Source: ERNEST 7:07 AM [facility] REPOSITORY TYPE CODE TESTS RESULT OUT OF RANGE REFERENCE UNITS LAB L501.080 70-110 mg/dL Normal BEDSIDE GLU 106 Result Comment: MANAGEMENT OF PATIENT CARE PER NURSING PROTOCOL Performed By: #### L501.080 #### [facility] Laboratory Point of Care [address] [place] [address] CBC-COMPLETE BLOOD CNT Collected: 01/07/2018 Status: F Source: ERNEST NO DIFF 5:25 AM [facility] REPOSITORY TYPE CODE TESTS RESULT OUT OF RANGE REFERENCE UNITS LAB L100.1000 4.4-11.0 K/mm3 Normal WBC 7.7 LAB L100.1200 4.6-6.2 M/mm3 Low RBC 4.32 LAB L100.1300 13.0-16.5 g/dl Normal HGB 14.2 LAB L100.1400 40-54 % Normal HCT 41.4 LAB L100.1500 80-94 fL High MCV 95.8 LAB L100.1600 27.0-32.0 pg High MCH 32.9 LAB L100.1700 32-36 g/gl Normal MCHC 34.3 LAB L100.1810 11.6-14.6 % Normal RDW CV 12.9 LAB L100.1820 35.1-43.9 fl High RDW SD 45.2 LAB L100.1900 150-450 K/mm3 Normal PLT 235 LAB L100.2000 6.2-12.0 fl Normal MPV 9.5 Performed By: #### L100.0500 #### [facility] [address] [place], [place], [address] BASIC METABOLIC Collected: 01/07/2018 Status: F Source: AMALIA PROFILE ([facility]) 5:25 AM [facility] REPOSITORY TYPE CODE TESTS RESULT OUT OF RANGE REFERENCE UNITS LAB L501.0100 74-106 mg/dL Normal GLU 99 Result Comment: Please note revised GLUCOSE reference range effective 2017. LAB L501.1000 7-18 mg/dL Normal BUN 14 LAB L501.1100 0.70-1.30 mg/dL Normal CREAT,SERUM 0.97 Result Comment: The validity of the calculated GFR AND GFRAA in patients over 70 years has not been determined. Clinical correlation is essential. LAB L501.1110 >60 mL/min Normal EST GFR 86 Result Comment: Non- GFR Calc LAB L501.1115 >60 mL/min Normal EST GFR - AA 104 Result Comment: GFR Calc LAB L501.1255 ml/min Normal Estimated CRCL 90.94 LAB L501.1300 10-20 RATIO Normal BUN/CRE 14.4 LAB L501.2200 8.5-10 mg/dL Low .1 CA 8.3 LAB L501.5300 136-14 mmol/L Normal 5 NA 141 LAB L501.5600 3.5-5. mmol/L Normal 1 K 4.2 LAB L501.5900 98-107 mmol/L High CL 108 LAB L501.6100 21.0-3 mmol/L Normal 2.0 CO2 26.0 LAB L501.6200 5-15 Normal GAP 7 Performed By: #### L500.2500, L500.4100 #### [facility] [address] [place], [address] LIPID PROFILE Collected: 01/07/2018 Status: F Source: AMALIA 5:25 AM [facility] REPOSITORY TYPE CODE TESTS RESULT OUT OF RANGE REFERENCE UNITS LAB L501.4900 200 mg/dL Normal CHOL 120 Result Comment: <200 mg/dL Desirable 200-240 mg/dL Borderline >240 mg/dL High Risk LAB L501.5000 mg/dL Normal TRIG 72 Result Comment: The drugs N-Acetylcysteine and Metamizole may falsely depress this assay. Serum Triglycerides Reference Interval Normal <150 mg/dL Borderline high 150 - 199 mg/dL High 200 - 499 mg/dL Very High > or = 500 mg/dL LAB L501.6400 mg/dL Normal HDL 41 Result Comment: The drugs N-Acetylcysteine and Metamizole may falsely depress this assay. Reference Range HDL <40 mg/dL Low HDL Cholesterol HDL >or= 60 mg/dL High HDL Cholesterol LAB L501.6500 0-130 mg/dL Normal LDL 65 LAB L501.6600 5-40 mg/dL Normal VLDL 14 Performed By: #### L500.2500, L500.4100 #### [facility] [address] [place], [address] BEDSIDE GLUCOSE Collected: 01/07/2018 Status: F Source: AMALIA 3:18 AM [facility] REPOSITORY TYPE CODE TESTS RESULT OUT OF RANGE REFERENCE UNITS LAB L501.080 70-110 mg/dL Normal BEDSIDE GLU 96 Result Comment: MANAGEMENT OF PATIENT CARE PER NURSING PROTOCOL Performed By: #### L501.080 #### [facility] Point of Care [address] [place] [address] BEDSIDE GLUCOSE Collected: 01/06/2018 Status: F Source: AMALIA 11:04 PM [facility] REPOSITORY TYPE CODE TESTS RESULT OUT OF REFERENCE UNITS RANGE LAB L501.080 70-110 mg/dL High BEDSIDE GLU 151 Result Comment: MANAGEMENT OF PATIENT CARE PER NURSING PROTOCOL Performed By: #### L501.080 #### [facility] Point of Care [address] [place] [address] BEDSIDE GLUCOSE Collected: 01/06/2018 Status: F Source: AMALIA 4:53 PM [facility] REPOSITORY TYPE CODE TESTS RESULT OUT OF RANGE REFERENCE UNITS LAB L501.080 70-110 mg/dL Normal BEDSIDE GLU 91 Result Comment: MANAGEMENT OF PATIENT CARE PER NURSING PROTOCOL Performed By: #### L501.080 #### [facility] Point of Care [address] [place] [address] ACT ACTIVATED CLOTTING Collected: 01/06/2018 Status: F Source: AMALIA TIME 1:07 PM [facility] REPOSITORY TYPE CODE TESTS RESULT OUT OF RANGE REFERENCE UNITS LAB L9100.0100 74-137 sec Normal ACTk CLOT 136 TIME Performed By: #### L9100.0100 #### [facility] Point of Care [address] [place], [place] [id number] ACT ACTIVATED CLOTTING Collected: 01/06/2018 Status: F Source: AMALIA TIME 10:24 AM [facility] REPOSITORY TYPE CODE TESTS RESULT OUT OF RANGE REFERENCE UNITS LAB L9100.0100 74-137 sec High ACTk CLOT 208 TIME Performed By: #### L9100.0100 #### [facility] Point of Care [address] [place], [place] [address] CBC-COMPLETE BLOOD CNT Collected: 01/06/2018 Status: F Source: AMALIA NO DIFF 8:07 AM [facility] REPOSITORY TYPE CODE TESTS RESULT OUT OF RANGE REFERENCE UNITS LAB L100.1000 4.4-11.0 K/mm3 Normal WBC 8.8 LAB L100.1200 4.6-6.2 M/mm3 Normal RBC 4.65 LAB L100.1300 13.0-16.5 g/dl Normal HGB 15.6 LAB L100.1400 40-54 % Normal HCT 45.0 LAB L100.1500 80-94 fL High MCV 96.8 LAB L100.1600 27.0-32.0 pg High MCH 33.5 LAB L100.1700 32-36 g/gl Normal MCHC 34.7 LAB L100.1810 11.6-14.6 % Normal RDW CV 12.7 LAB L100.1820 35.1-43.9 fl High RDW SD 44.2 LAB L100.1900 150-450 K/mm3 Normal PLT 282 LAB L100.2000 6.2-12.0 fl Normal MPV 9.8 Performed By: #### L100.0500 #### [facility] [address] [place], [place], [id number] PROTHROMBIN TIME W/INR Collected: 01/06/2018 Status: F Source: AMALIA 8:07 AM [facility] REPOSITORY TYPE CODE TESTS RESULT OUT OF RANGE REFERENCE UNITS LAB L300.4150 11.7-14.9 SECONDS Normal PROTIME 13.6 LAB L300.4200 Normal INR 1.0 Performed By: #### L300.3900, L300.4310 #### [facility] [address] [place], [address] PARTIAL THROMBOPLAST Collected: 01/06/2018 Status: F Source: AM[place]IA TIME 8:07 AM [facility] REPOSITORY TYPE CODE TESTS RESULT OUT OF RANGE REFERENCE UNITS LAB L300.4310 24.1-36.2 Seconds Normal PTT 26.4 Performed By: #### L300.3900, L300.4310 #### [facility] [address] [place], [address] BASIC METABOLIC Collected: 01/06/2018 Status: F Source: AMALIA PROFILE (BMP) 8:07 AM [facility] REPOSITORY TYPE CODE TESTS RESULT OUT OF RANGE REFERENCE UNITS LAB L501.0100 74-106 mg/dL Normal GLU 98 Result Comment: Please note revised GLUCOSE reference range effective 2017. LAB L501.1000 7-18 mg/dL Normal BUN 17 LAB L501.1100 0.70-1.30 mg/dL Normal CREAT,SERUM 1.13 Result Comment: The validity of the calculated GFR AND GFRAA in patients over 70 years has not been determined. Clinical correlation is essential. LAB L501.1110 >60 mL/min Normal EST GFR 72 Result Comment: Non- GFR Calc LAB L501.1115 >60 mL/min Normal EST GFR - AA 87 Result Comment: GFR Calc LAB L501.1255 ml/min Normal Estimated CRCL 78.06 LAB L501.1300 10-20 RATIO Normal BUN/CRE 15.0 LAB L501.2200 8.5-10 mg/dL Normal .1 CA 8.7 LAB L501.5300 136-14 mmol/L Normal 5 NA 138 LAB L501.5600 3.5-5. mmol/L Normal 1 K 3.9 LAB L501.5900 98-107 mmol/L Normal CL 103 LAB L501.6100 21.0-3 mmol/L Normal 2.0 CO2 29.0 LAB L501.6200 5-15 Normal GAP 6 Performed By: #### L500.2500 #### [facility] [address] [place], [address] CARDIOLOGY VISIT Observed: 12/22/2017 Status: F Source: ERNEST REPORT 12:19 PM [facility] REPOSITORY [facility] [address] [place] [address] OFFICE VISIT Date of Service: 12/22/17 MR#: [id number] Acct: [id number] Name: TESFAYE FRAUSTO Jr. Rep #: [id number] : 1965 Provider: Chandu Mendenhall MD Age/Sex: 52/M Location: [facility] Status: Signed HPI HPI Details: TESFAYE FRAUSTO, is a 52 M who presents to the office today for outpatient cardiovascular follow-up. Since his last visit he had to temporarily postpone his PCI appointment. He states he is now able to proceed with his PCI. In the interim he states that he has had concerns of headaches. He states this is been more prominent since being on isosorbide/Imdur. He has had episodes of chest discomfort. He states these have been brought on by emotional stress. He has used nitroglycerin sublingual with benefit. He has had no episodes of orthopnea, PND, or peripheral pitting edema. There has been no near syncope or syncope. He did have a follow-up ECG in the office today. He was in sinus rhythm. He had poor R wave progression. Intake Vital Signs12/22/17 Height 5 ft 10 in 12/22/17 Weight: 167 lb 12/22/17 Body Mass Index (BMI) 23.9 12/22/17 Blood Pressure 96/60 Intake Visit Reasons: Update H AND P Allergies No Known Allergies Allergy (Verified 12/22/17 11:32) Medications Omeprazole [Prilosec] 10 mg PO DAILY 10/13/17 [History Confirmed 12/22/17] Multivitamin [Multiple Vitamins] 1 ea PO DAILY 10/24/17 [History Confirmed 12/22/17] Aspirin E.C. [Ecotrin] 81 mg PO DAILY@0800 #30 tab 11/04/17 [Rx Confirmed 12/22/17] Metformin HCl 500 mg PO BID #60 tab 11/04/17 [Rx Confirmed 12/22/17] Neomycin/Bacitracin/Polymyxin [Neosporin Ointment] 1 applic TOPICAL DAILY PRN #1 tube 11/04/17 [Rx Confirmed 12/22/17] Nitroglycerin [Nitrostat] 0.4 mg SUBLINGUAL Q5M PRN #100 tab 11/04/17 [Rx Confirmed 12/22/17] Umeclidinium Brm/Vilanterol Tr [Anoro Ellipta 62.5-25 Mcg INH] 1 inh INHALATION DAILY #1 blst.w.dev 11/04/17 [Rx Confirmed 12/22/17] buspirone 10 mg tablet 10 mg PO DAILY PRN tab 11/25/17 [History Confirmed 12/22/17] cyanocobalamin (vit B-12) 1,000 mcg tablet 1,000 mcg PO DAILY 11/25/17 [History Confirmed 12/22/17] amlodipine 2.5 mg tablet 2.5 mg PO DAILY #90 tab 12/07/17 [Rx Confirmed 12/22/17] atorvastatin 80 mg tablet 80 mg PO QHS #90 tab 12/07/17 [Rx Confirmed 12/22/17] clopidogrel 75 mg tablet 75 mg PO DAILY #90 tab 12/07/17 [Rx Confirmed 12/22/17] metoprolol tartrate 25 mg tablet 25 mg PO BID #180 tab 12/07/17 [Rx Confirmed 12/22/17] ranolazine ER 500 mg tablet,extended release,12 hr 500 mg PO BID #60 tab 12/22/17 [Rx Confirmed 12/22/17] [facility] Medical History Type 2 diabetes mellitus (Acute) Atherosclerotic heart disease of [place] coronary artery without angina pectoris (Chronic) Penile swelling (Acute) Hypertension (Chronic) Chest pain (Acute) Tobacco use (Chronic) Unstable angina pectoris (Acute) Surgical History History of appendectomy (Resolved) penile surgery (Resolved) Family History Mother Heart disease Father Cancer Social History Smoking Status: Current every day smoker alcohol intake: current details: rare substance use type: does not use ROS Const Const: Positive for fatigue (continues) and headache(s) (constant x couple of weeks, causing occasional nausea); negative for weakness, weight gain, weight loss, frequent falls or excessive sweating Eyes Eyes: Negative for change in vision or transient loss of vision ENT ENT: Positive for dizziness (intermittant, happens at any time), balance problems (due to dizziness) and headache(s) (constant x couple of weeks, causing occasional nausea) Cardio Chest Pain: Yes Frequency: daily (to every couple of days) Character: dull, sharp Onset: at rest, exercise Location: left chest Duration: minutes, brief Relieving: other (used nitro x 14) Palpitations: Yes (occasional) feels like its: skipping Edema: None Muscle aches with walking: None Resp Respiratory: Positive for SOB with activity and SOB at rest (wakes in the night feels like Im not breathing) GI GI: Negative vomiting or vomiting blood/hematemesis : Negative for hematuria Musc Musc: Positive for balance problems (due to dizziness) and muscle weakness (bilat LE); negative for muscle aches/ myalgia or joint pain Skin Skin: Negative non-healing lesions or rash Neuro Neuro: Positive for dizziness (intermittant, happens at any time) and headache(s) (constant x couple of weeks, causing occasional nausea); negative for weakness, lightheadedness, frequent falls or orthostatic symptoms Ish Hematologic/Lymphatic: Negative for easy bleeding Endo Endo: Positive for fatigue (continues); negative for excessive sweating Psych Psych: Negative for anxiety or depression Allergy Allergy/Immunology: Negative for hives, Negative for rash Cardiology Exam Const Appearance: cooperative, healthy appearing, comfortable, no acute distress, well developed and well groomed Nutritional Appearance: average body habitus Orientation: alert, awake and oriented x3 Head Head: normal to inspection, normocephalic and atraumatic Ears: hearing grossly normal bilaterally Nose: external nose normal Face and Sinus: face symmetric Mouth: oral mucosae normal Teeth and gingiva: fair dentition Eyes Eyelids: eyelids normal Conjunctivae: conjunctivae normal Pupils: PERRL EOM: EOM intact bilaterally Neck Neck: normal visual inspection and full ROM Carotids: normal carotid upstroke Chest Chest inspection: normal inspection of the chest, symmetric chest movement and normal respiratory effort Auscultation: Bilateral: Clear to Auscultation Cardio Palpation: normal PMI Rate: regular rate Rhythm: regular rhythm Heart sounds: S1 normal and S2 normal GI GI: normal to inspection, soft and bowel sounds present Neuro General: alert, awake, oriented x3 and moves all extremities Skin Skin: no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 CIRCUMFLEX ARTERY: PROX CIRC: Mild luminal irregularities RIGHT CORONARY ARTERY: Mild luminal irregularities MID RCA: 75 % Stenosis VALVE FINDINGS: Normal Aortic Valve function Normal Mitral Valve function AORTIC ROOT: Angiographically normal Assessment AND Plan 1. Angina pectoris I20.9 Plan The patient continues with symptoms concerning for angina pectoris. He has been on medical management. He will continue this. He will proceed with his staged PCI. If he continues with symptoms after medical management and his PCI then consideration might be given as to whether or not there are other etiologies for his ongoing chest discomfort 2. CAD in [place] artery I25.10 Plan He has been found to have CAD as noted above. At the present time he will continue with his medical management and plans for staged PCI. Orders Orders: 3. Essential hypertension I10 Plan He does have a history of hypertension. His blood pressure appears to be reasonably well-controlled today. He will continue his medical therapy. Plan Detail Other Orders Orders: Other Medications New: Additional Comments The above was discussed with the patient and his spouse. He was agreeable to this approach. Thank you for allowing me to participate in the care of your patient. Please don't hesitate to call if any issues arise. This note was generated using a voice recognition system and there may be incorrect words, spelling or punctuation that were not noted when reviewing the office note prior to saving. Follow Up 3 Months (PFM) Coding Level of Care Code Off vis,est,level 4 Diagnoses Angina pectoris I20.9 CAD in [place] artery I25.10 Essential hypertension I10 Hypertension type: essential hypertension Coding Level of Care Code Off vis,est,level 4 Diagnoses Angina pectoris I20.9 CAD in [place] artery I25.10 Essential hypertension I10 Hypertension type: essential hypertension 11/25/172057 <Electronically signed by Chandu Mendenhall MD> Date Chandu Mendenhall MD Cosigner Signature: Date (if applicable) CC: Alverto Griffin MD 12 LEAD EKG PERFORMED Observed: 11/25/2017 Status: F Source: [place] BY BMS 3:23 PM [facility] REPOSITORY [facility] [address] [place] [address] 12 Lead EKG performed by [facility] 11/25/171521 MR#: [id number] Acct: [id number] Name: CHIDIPARVEENKARTIKTESFAYELuis Alfredo Valentin Jr. Rep #: [id number] : 1965 52 From: Chandu Mendenhall MD Attending Dr: Chandu Mendenhall MD Status: DEP AMB Ordering Dr: Chandu Mendenhall MD Date: 11/25/17 Location: [facility] [place], [place] Sex: M C Admitted: BMS/12 Lead EKG performed by [facility] ECG Report Interpretation Sinus Rhythm Poor R wave progressionElectronically signed on 11/25/2017 at 22:09 by Chandu Mendenhall [employer] Version 8610 11/25/17 2214 Date Chandu Mendenhall MD CC: No Primary Care Physician Date Dictated: 11/25/171521 Date Transcribed: 11/25/171521 Credit And Collections Analyst: PM Signed 12 LEAD ELECTROCARDIOGRAM Observed: 11/08/2017 Status: F Source: [place] 3:33 PM [facility] REPOSITORY [facility] Cardiovascular Services [address] [place] [address] 12 Lead EKG 11/04/17 0528 MR#: [id number] Acct: [id number] Name: TESFAYE FRAUSTO Jr. Rep #: [id number] : 1965 52 From: Patricia Mitchell MD Attending Dr: Kris Hussein MD Status: DIS KAYDEN Ordering Dr: David Youssef MD Date: 11/03/17 Location: [facility] Sex: M C Admitted: 11/03/17 Test Reason : AM EKG Blood Pressure : / mmHG Vent. Rate : 072 BPM Atrial Rate : 072 BPM P-R Int : 134 ms QRS Dur : 090 ms QT Int : 398 ms P-R-T Axes : 077 086 077 degrees QTc Int : 435 ms Normal sinus rhythm Normal ECG Confirmed by Patricia Mitchell ([id number]), web editor LAUREN WILSON ([id number]) on 11/08/2017 3:33:05 PM Referred By: KEENAN Confirmed By:Patricia Mitchell 11/08/17 1533 Date Patricia Mitchell MD CC: No Primary Care Physician; David Youssef MD; Kris Hussein MD Signed 12 LEAD ELECTROCARDIOGRAM Observed: 11/05/2017 Status: F Source: [place] 2:21 PM [facility] REPOSITORY [facility] Cardiovascular Services [address] [place] [address] 12 Lead EKG 11/03/17 0314 MR#: [id number] Acct: [id number] Name: TESFAYE FRAUSTO Jr. Rep #: [id number] : 1965 52 From: Chandu Mendenhall MD Attending Dr: Kris Hussein MD Status: DIS KAYDEN Ordering Dr: David Youssef MD Date: 11/03/17 Location: [facility] Sex: M C Admitted: 11/03/17 Test Reason : CP Blood Pressure : / mmHG Vent. Rate : 088 BPM Atrial Rate : 088 BPM P-R Int : 134 ms QRS Dur : 088 ms QT Int : 358 ms P-R-T Axes : 061 077 069 degrees QTc Int : 433 ms Normal sinus rhythm Normal ECG Confirmed by ABDIRASHID GRIGSBY, CHANDU ([id number]), web editor LAUREN WILSON ([id number]) on 11/05/2017 2:21:17 PM Referred By: EITAN Confirmed By:CHANDU MENDENHALL MD 11/05/17 1421 Date Chandu Mendenhall MD CC: No Primary Care Physician; David Youssef MD; Kris Hussein MD Signed 12 LEAD ELECTROCARDIOGRAM Observed: 11/05/2017 Status: F Source: AMALIA 2:21 PM [facility] REPOSITORY [facility] Cardiovascular Services [address] [place] [address] 12 Lead EKG 11/03/17 0559 MR#: [id number] Acct: [id number] Name: TESFAYE FRAUSTO Jr. Rep #: [id number] : 1965 52 From: Chandu Mendenhall MD Attending Dr: Kris Hussein MD Status: DIS KAYDEN Ordering Dr: Cassandra Ramires Date: 11/04/17 Location: [facility] Sex: M C Admitted: 11/03/17 Test Reason : REPEAT CP Blood Pressure : / mmHG Vent. Rate : 076 BPM Atrial Rate : 076 BPM P-R Int : 138 ms QRS Dur : 100 ms QT Int : 406 ms P-R-T Axes : 068 078 068 degrees QTc Int : 456 ms Sinus rhythm Confirmed by ABDIRASHID GRIGSBY, CHANDU ([id number]), web editor LAUREN WILSON ([id number]) on 11/05/2017 2:21:39 PM Referred By: EITAN Confirmed By:CHANDU MENDENHALL MD 11/05/17 1421 Date Chandu Mendenhall MD CC: No Primary Care Physician; Cassandra Ramires; Kris Hussein MD Signed DISCHARGE SUMMARY Observed: 11/04/2017 Status: F Source: [place] 4:29 PM [facility] REPOSITORY [facility] Medical Records Department [address] [place] [address] Discharge Summary 11/04/17 0943 MR#: [id number] Acct: [id number] Name: TESFAYE FRAUSTO Jr. Rep #: [id number] : 1965 52 From: Kris Hussein MD PCP: Care Physician, No Primary Status: DIS KAYDEN Y Location: [place] [address]-1 Discharge Date and Diagnosis Date of Admission: 11/03/17 Date of Discharge: 11/04/17 - Primary Discharge Diagnosis Active and Suspected Problems Chest pain (Acute) Unstable angina pectoris (Acute) COPD with bronchiectasis mild COPD exacerbation - Secondary Discharge Diagnosis Chronic Problems Hypertension (Chronic) Tobacco use (Chronic) Hospital Course and Treatment Summary of Care Provided: [] The patient is a 52 y/o M with history of tobacco use, HTN possible COPD was admitted with progressive worsening of shortness of breath for 2 weeks and chest discomfort. Patient chest pain is started intrascapular pain that wraps around left shoulder left arm moved to the front. Patient was also diaphoretic, lightheadedness and dyspneic. He has dyspnea on exertion. Chest x-ray showed chronic COPD changes. CTPA showed emphysematous and fibrotic changes in the lung, bronchiectasis with bronchial wall thickening. EKG normal sinus rhythm without acute evidence of ischemia. The patient was seen and examined today General: Alert, Oriented x3, Cooperative HEENT: Atraumatic, PERRLA, EOMI, Normocephalic Neck: Supple, No JVD, Negative Carotid Bruits Lungs: Diminished, Rhonchi, Short of Breath Cardiovascular: Regular rate, Regular Rhythm, Normal S1, Normal S2, No murmurs Abdomen: Bowel Sounds Present, Soft, Non Tender, Non-Distended, - - Patient has penile ulcer. Dr. Johnson saw him Extremities: Capillary Refill Less than 3 Seconds, Edema Skin: No rashes, No breakdown Musculoskeletal: No Tenderness to Palpation of Joints or Extremities Neurological: Cranial nerves II-XII grossly intact Psych/Mental Status: Normal Affect, Appropriate 1. Atypical chest pain with concern of unstable angina with [place] multivessel coronary artery disease especially RCA: Patient is being admitted in PCU. Patient was seen by Dr. Mendenhall and had cardiac cath in the morning. Cardiac cath shows normal LV size, wall motion and systolic function; EF by LV gram 65%. [place] multivessel coronary artery disease mid RCA 75%. Mid LAD mild irregularity. Septal ostial 25-50%. She had echo which showed EF 55% with normal diastolic. Normal RV size and systolic function. Normal right and left atria. Trivial TR, RVSP 33 mmHg. Trivial MR. Patient was only on vitamin B12 multivitamin and Prilosec at home. 2. Pulmonary conditions: Chronic tobacco use, COPD and bronchiectasis with acute bronchitis suggestive of COPD exacerbation: Patient had CT chest in the ER which shows emphysematous and fibrotic changes in the lungs. Mild bronchiectasis with mural thickening of bronchi consistent with inflammatory bronchitis. No pulmonary infiltrates. Smoking cessation advised. On DuoNeb every 6 hourly. Solu-Medrol 40 mg every 8 hourly. Incentive is spirometry. Breathing improved. Does not need a steroid taper as he was only for about 1 day 3. Hypertension: Blood pressure is controlled. 4. Chronic penile injury: Patient seen by Dr. Johnson. Urology consult appreciated. Advised Neosporin topical application. DVT prophylaxis: On Lovenox 40 mils subcu daily. Discharge medication reconciliation done. Discharge follow- up instructions completed. All the prescriptions of cardiac medications, Anoro Ellipta, albuterol inhaler and antihypertensive medications were sent to pharmacy. Patient is also advised to follow-up with reach lift truck driver, Dr. Gregory for bronchiectasis and COPD found in chest CT for outpatient PFT. Total time spent, exact 35 minutes on discharge meds reconciliation, examination, review of imaging and blood test and discussion with the patient on follow-up instructions. Discharge Activity: Return to Normal Activity Home Medications: Medications to take at Discharge Amlodipine [Norvasc] 2.5 mg PO DAILY #30 tab 10/13/17 Omeprazole [Prilosec] 10 mg PO DAILY 10/13/17 Multivitamin [Multiple Vitamins] 1 each PO DAILY 10/24/17 Cyanocobalamin (Vitamin B-12) [Vitamin B-12] 1,000 mcg PO DAILY 11/03/17 Aspirin E.C. [Ecotrin] 81 mg PO DAILY@0800 #30 tablet 11/04/17 Atorvastatin Calcium [Lipitor] 80 mg PO QHS #30 tablet 11/04/17 Clopidogrel Bisulfate [Plavix] 75 mg PO DAILY #30 tablet 11/04/17 Isosorbide Mononitrate [Imdur] 30 mg PO DAILY #30 tablet 11/04/17 Metformin HCl 500 mg PO BID #60 tablet 11/04/17 Metoprolol Tartrate [Lopressor (beta pierre)] 25 mg PO BID #60 tablet 11/04/17 Neomycin/Bacitracin/Polymyxin [Neosporin Ointment] 1 applic TOPICAL DAILY PRN #1 tube 11/04/17 Nitroglycerin [Nitrostat] 0.4 mg SUBLINGUAL Q5M PRN #100 tablet 11/04/17 Umeclidinium Brm/Vilanterol Tr [Anoro Ellipta 62.5-25 Mcg INH] 1 inh INHALATION DAILY #1 blst.w.dev 11/04/17 Following Prescrptions Were Given to Patient: Aspirin E.C. [Ecotrin] 81 mg PO DAILY@0800 #30 tablet Atorvastatin Calcium [Lipitor] 80 mg PO QHS #30 tablet Clopidogrel Bisulfate [Plavix] 75 mg PO DAILY #30 tablet Isosorbide Mononitrate [Imdur] 30 mg PO DAILY #30 tablet Neomycin/Bacitracin/Polymyxin [Neosporin Ointment] 1 applic TOPICAL DAILY PRN #1 tube PRN Reason: WOUND CARE Nitroglycerin [Nitrostat] 0.4 mg SUBLINGUAL Q5M PRN #100 tablet PRN Reason: Chest Pain Umeclidinium Brm/Vilanterol Tr [Anoro Ellipta 62.5-25 Mcg INH] 1 inh INHALATION DAILY #1 blst.w.dev Metformin HCl 500 mg PO BID #60 tablet Metoprolol Tartrate [Lopressor (beta pierre)] 25 mg PO BID #60 tablet Primary Care Physician: Care Physician,No Primary [Primary Care Provider] - Please follow up with your Primary Care Physician in: in 2 weeks Please Follow Up With: Chandu Mendenhall MD When: in 2-4 weeks to schedule RCA PCI Please Follow Up With: Gal Gregory MD When: FOR Bronchitectasis and COPD IN 4 WEEKS Medical Necessity - Tobacco Use Smoking Status: Current every day smoker Tobacco Use: Cigarettes Meaningful Use Info Meaningful Use Diagnoses (Choose all that apply): None applicable Code Visit Inpatient E AND M: 57445 Disch Hosp 11/04/17 1629 <Electronically signed by Kris Hussein MD> Date Kris Hussein MD Cosigner Signature (if applicable): Date CC: No Primary Care Physician; Kris Hussein MD Signed DISCHARGE INSTRUCTION Observed: 11/04/2017 Status: F Source: [place] 10:48 AM [facility] REPOSITORY [facility] Medical Records Department [address] [address] Instructions for Home/Discharge Instructions 11/04/17 0940 MR#: [id number] Acct: [id number] Name: TESFAYE FRAUSTO Rep #: [id number] : 1965 52 From: Kris Hussein MD PCP: Care Physician, No Primary Status: ADM KAYDEN ADDENDUM by Kris Hussein MD on 11/04/17 at [address] finding of bronchiectasis with bronchial wall thickenings and COPD. Need to follow-up with Dr. Gregory in 3-4 weeks for outpatient PFT. 11/04/17 1048 Date Kris Hussein MD cc: No Primary Care Physician; Woo Johnson MD; Chandu Mendenhall MD * Signed - Discharge Diagnoses Current Active Problems: Current Active and Chronic Problems Chest pain (Acute) Tobacco use (Chronic) Unstable angina pectoris (Acute) You will use the following diet at home:: Calorie/Carbohydrate Controlled (specify 1200, 1400, etc) - 1800, Cardiac Discharge Activity: Return to Normal Activity Allergies/Adverse Reactions: Allergies No Known Allergies Allergy (Verified 10/12/17 22:37) Medications to take at Discharge Amlodipine [Norvasc] 2.5 mg PO DAILY #30 tab 10/13/17 Omeprazole [Prilosec] 10 mg PO DAILY 10/13/17 Multivitamin [Multiple Vitamins] 1 each PO DAILY 10/24/17 Cyanocobalamin (Vitamin B-12) [Vitamin B-12] 1,000 mcg PO DAILY 11/03/17 Aspirin E.C. [Ecotrin] 81 mg PO DAILY@0800 #30 tablet 11/04/17 Atorvastatin Calcium [Lipitor] 80 mg PO QHS #30 tablet 11/04/17 Clopidogrel Bisulfate [Plavix] 75 mg PO DAILY #30 tablet 11/04/17 Isosorbide Mononitrate [Imdur] 30 mg PO DAILY #30 tablet 11/04/17 Metformin HCl 500 mg PO BID #60 tablet 11/04/17 Metoprolol Tartrate [Lopressor (beta pierre)] 25 mg PO BID #60 tablet 11/04/17 Neomycin/Bacitracin/Polymyxin [Neosporin Ointment] 1 applic TOPICAL DAILY PRN #1 tube 11/04/17 Nitroglycerin [Nitrostat] 0.4 mg SUBLINGUAL Q5M PRN #100 tablet 11/04/17 Tiotropium Br/Olodaterol HCl [Stiolto Respimat Inhal [place]] 2 inh IH DAILY #1 mist.inhal 11/04/17 The following prescriptions were given: Aspirin E.C. [Ecotrin] 81 mg PO DAILY@0800 #30 tablet Atorvastatin Calcium [Lipitor] 80 mg PO QHS #30 tablet Clopidogrel Bisulfate [Plavix] 75 mg PO DAILY #30 tablet Isosorbide Mononitrate [Imdur] 30 mg PO DAILY #30 tablet Neomycin/Bacitracin/Polymyxin [Neosporin Ointment] 1 applic TOPICAL DAILY PRN #1 tube PRN Reason: WOUND CARE Nitroglycerin [Nitrostat] 0.4 mg SUBLINGUAL Q5M PRN #100 tablet PRN Reason: Chest Pain Tiotropium Br/Olodaterol HCl [Stiolto Respimat Inhal [place]] 2 inh IH DAILY #1 mist.inhal Metoprolol Tartrate [Lopressor (beta pierre)] 25 mg PO BID #60 tablet Primary Care Physician: Care Physician,No Primary [Primary Care Provider] - Please follow up with your Primary Care Physician in: in 2 weeks Test Results: Test results from this visit will be discussed in further detail at your follow-up appointment, if applicable. Please Follow Up With: Chandu Mendenhall MD When: in 2-4 weeks to schedule RCA PCI Please Follow Up With: Gal Gregory MD When: FOR Bronchitectasis and COPD IN 4 WEEKS 11/04/17 0943 <Electronically signed by Kris Hussein MD> Date Kris Hussein MD CC: No Primary Care Physician; Woo Johnson MD; Chandu Mendenhall MD CBC-COMPLETE BLOOD CNT Collected: 11/04/2017 Status: F Source: [place] NO DIFF 5:44 AM [facility] REPOSITORY TYPE CODE TESTS RESULT OUT OF RANGE REFERENCE UNITS LAB L100.1000 4.4-11.0 K/mm3 High WBC 13.0 LAB L100.1200 4.6-6.2 M/mm3 Low RBC 4.25 LAB L100.1300 13.0-16.5 g/dl Normal HGB 14.1 LAB L100.1400 40-54 % Normal HCT 41.0 LAB L100.1500 80-94 fL High MCV 96.5 LAB L100.1600 27.0-32.0 pg High MCH 33.2 LAB L100.1700 32-36 g/gl Normal MCHC 34.4 LAB L100.1810 11.6-14.6 % Normal RDW CV 12.4 LAB L100.1820 35.1-43.9 fl Normal RDW SD 42.4 LAB L100.1900 150-450 K/mm3 Normal PLT 306 LAB L100.2000 6.2-12.0 fl Normal MPV 9.8 Performed By: #### L100.0500 #### [facility] [address] [place], [address] COMPREHENSIVE METABOLIC Collected: 11/04/2017 Status: F Source: [place] PROFIL 5:44 AM [facility] REPOSITORY TYPE CODE TESTS RESULT OUT OF RANGE REFERENCE UNITS LAB L501.0100 74-106 mg/dL High GLU 189 Result Comment: Fasting Glucose result greater than or equal to 126 mg/dL suggests DIABETES MELLITUS per A.D.A. criteria. Please note revised GLUCOSE reference range effective 2017. LAB L501.1000 7-18 mg/dL Normal BUN 15 LAB L501.1100 0.70-1.30 mg/dL Normal CREAT,SERUM 1.23 Result Comment: The validity of the calculated GFR AND GFRAA in patients over 70 years has not been determined. Clinical correlation is essential. LAB L501.1110 >60 mL/min Normal EST GFR 65 Result Comment: Non- GFR Calc LAB L501.1115 >60 mL/min Normal EST GFR - AA 79 Result Comment: GFR Calc LAB L501.1255 ml/min Normal Estimated CRCL 71.71 LAB L501.1300 10-20 RATIO Normal BUN/CRE 12.2 LAB L501.1500 6.4-8. g/dL Normal 2 T PROT 7.0 LAB L501.1800 3.2-5. g/dL Normal 0 ALB 3.2 LAB L501.1950 2.2-4. g/dL Normal 2 GLOB 3.8 LAB L501.2000 0.9-2. RATIO Low 4 A/G 0.8 LAB L501.2200 8.5-10 mg/dL Normal .1 CA 8.6 LAB L501.4100 15-37 U/L Low AST 13 LAB L501.4305 45-117 U/L Normal ALK P 62 LAB L501.4405 16-61 U/L Normal ALT 23 LAB L501.4600 0.20-1 mg/dL Normal .00 T BILI 0.30 LAB L501.5300 136-14 mmol/L Normal 5 NA 139 LAB L501.5600 3.5-5. mmol/L Normal 1 K 4.6 LAB L501.5900 98-107 mmol/L Normal CL 105 LAB L501.6100 21.0-3 mmol/L Normal 2.0 CO2 24.0 LAB L501.6200 5-15 Normal GAP 10 Performed By: #### L500.4050, L500.4100 #### [facility] [address] [place], [place], [address] LIPID PROFILE Collected: 11/04/2017 Status: F Source: ERNEST 5:44 AM [facility] REPOSITORY TYPE CODE TESTS RESULT OUT OF RANGE REFERENCE UNITS LAB L501.4900 200 mg/dL Normal CHOL 189 Result Comment: <200 mg/dL Desirable 200-240 mg/dL Borderline >240 mg/dL High Risk LAB L501.5000 mg/dL Normal TRIG 64 Result Comment: The drugs N-Acetylcysteine and Metamizole may falsely depress this assay. Serum Triglycerides Reference Interval Normal <150 mg/dL Borderline high 150 - 199 mg/dL High 200 - 499 mg/dL Very High > or = 500 mg/dL LAB L501.6400 mg/dL Normal HDL 68 Result Comment: The drugs N-Acetylcysteine and Metamizole may falsely depress this assay. Reference Range HDL <40 mg/dL Low HDL Cholesterol HDL >or= 60 mg/dL High HDL Cholesterol LAB L501.6500 0-130 mg/dL Normal LDL 108 LAB L501.6600 5-40 mg/dL Normal VLDL 13 Performed By: #### L500.4050, L500.4100 #### [facility] [address] [place], [address] Observed: 11/03/2017 Status: F Source: ERNEST INFLUENZA A+B (RAPID 4:20 PM [facility]) REPOSITORY FLU A/B Rapid Negative test results should be confirmed by culture. Order Rapid Viral Culture for Influenzae A+B ([id number]) if clinically indicated. Influenza Ag, Direct Presumptive NEGATIVE for Influenza A/B Antigen (See Note) Performed By: #### M101.0101 #### [facility] [address] [place], [address] ECHOCARDIOGRAM COMPLETE Observed: 11/03/2017 Status: F Source: ERNEST 2:10 PM [facility] REPOSITORY [facility] Cardiovascular Services [address] [place] [address] Echo Complete 11/03/17 1026 MR#: [id number] Acct: [id number] Name: TESFAYE FRAUSTO Rep #: [id number] : 1965 52 From: Chandu Mendenhall MD [facility]: ADM KAYDEN Ordering Dr: Chandu Mendenhall MD Date: 11/03/17 Location: [facility] Sex: M C Admitted: 11/03/17 Reason For Study: CAD/ASHD Procedure This was a 2D Doppler, Color Flow transthoracic echocardiogram. The exam was of fair technical quality due to diminished acoustic windows. Exam performed portable in patient room. Left Ventricle Normal LV size. Apical false tendon noted. Left ventricular systolic function is normal. The estimated ejection fraction is 55 %. Normal diastology for age. No regional wall motion abnormalities noted. Right Ventricle Normal RV size. Normal systolic function. Atria Normal left atrium. Normal right atrium. No doppler evidence for ASD. Mitral Valve There is no mitral annular calcification. Normal mitral valve. Trivial mitral valve insufficiency. Tricuspid Valve Normal tricuspid valve. Trivial tricuspid valve insufficiency. Right ventricular systolic pressure estimated to be 33 mmHg. Aortic Valve Trisinus/trileaflet aortic valve. Mild focal aortic valve calcification. Pulmonic Valve The pulmonic valve is not well visualized. Great Vessels Normal sized aortic root. Pericardium/Pleural No pericardial effusion. MMode/2D Measurements AND Calculations LVIDd: 5.4 cm IVSd: 0.72 cm Ao root diam: 2.9 cm LVIDs: 3.7 cm LVPWd: 0.61 cm LA dimension: 3.0 cm RVDd: 3.2 cm FS: 31.1 % LAV(MOD-bp): 41.5 ml LVAd ap4: 30.4 cm2 SV(MOD-sp4): 51.6 ml LAV(MOD-bp) Indexed: 21.6 ml/m2 EDV(MOD-sp4): 89.2 ml LAV(MOD-sp2): 52.8 ml EDV(sp4-el): 92.8 ml LAV(MOD-sp4): 29.5 ml LVAs ap4: 17.2 cm2 ESV(MOD-sp4): 37.6 ml ESV(sp4-el): 38.0 ml EF(MOD-sp4): 57.9 % EF(sp4-el): 59.0 % SV(sp4-el): 54.7 ml LA A4 area: 12.1 cm2 RA A4 area: 11.1 cm2 Doppler Measurements AND Calculations MV E max arcenio: 87.4 cm/sec Lat Peak E' Arcenio: 11.9 cm/sec Med Peak E' Arcenio: 9.7 cm/sec MV A max arcenio: 64.7 cm/sec E/E' lat: 7.4 E/E' med: 9.0 MV E/A: 1.3 Ao V2 max: 112.6 cm/sec LV V1 max: 84.5 cm/sec PA V2 max: 80.9 cm/sec Ao max P.1 mmHg LV V1 max P.9 mmHg Ao V2 mean: 80.8 cm/sec Ao mean P.9 mmHg Ao V2 VTI: 22.2 cm TR max arcenio: 272.1 cm/sec TR max P.6 mmHg Interpretation Summary Left ventricular systolic function is normal. The estimated ejection fraction is 55 %. Apical false tendon noted. Trivial mitral valve insufficiency. Trivial tricuspid valve insufficiency. Mild focal aortic valve calcification. Right ventricular systolic pressure estimated to be 33 mmHg. Normal diastology for age. Ordering Physician: Chandu Mendenhall Performed By: Carito Calabrese, KIRSTIECS, RVT 11/03/17 1408 Date Chandu Mendenhall MD CC: No Primary Care Physician; Chandu Mendenhall MD; Kris Hussein MD Date Dictated: 11/03/17 1026 Date Transcribed: 11/03/171407 Credit And Collections Analyst: Signed TROPONIN-I Collected: 11/03/2017 Status: F Source: ERNEST 10:00 AM [facility] REPOSITORY Order Comment: 'TROP' Serial specimen #1, #2 or #3: 3 TYPE CODE TESTS RESULT OUT OF RANGE REFERENCE UNITS LAB L501.4010 <0.045 ng/mL Normal < 0.015 TROPONIN-I Result Comment: TROPONIN-I EXPECTED VALUES <0.045 Negative 0.045 - 0.590 Consistent with Cardiac Damage > OR = 0.600 Critical Value Not every elevated troponin is indicative of IL. These values should be used with clinical judgement in examining the patient's clinical picture for diagnosis. To establish a diagnosis of IL versus myocardial injury, there must be a demonstrated rise and/or fall in the troponin values, in addition to ischemic symptoms, EKG changes, new regional wall motion abnormality, and/or angiographical evidence. PLEASE NOTE: REFERENCE RANGES EDITED 17 Performed By: #### L501.4010 #### [facility] [address] [place], [address] CONSULTATION Observed: 11/03/2017 Status: F Source: ERNEST 8:07 AM [facility] REPOSITORY [facility] Medical Records Department [address] [place] [address] Consultation 11/03/17 0755 MR#: [id number] Acct: [id number] Name: TESFAYE FRAUSTO SHIRA Rep #: [id number] : 1965 52 From: Chandu Mendenhall MD PCP: Care Physician, No Primary Status: ADM KAYDEN Y Location: [place] [address] Problem List (1) Unstable angina pectoris Status: Acute (2) Hypertension Status: Chronic Qualifiers: Hypertension type: essential hypertension Qualified Code(s): I10 - Essential (primary) hypertension (3) Tobacco use Status: Chronic (4) Penile swelling Status: Acute Reason for Consult Date of Consultation: 11/03/17 History of Present Illness: The patient is a 52 year old white male with a past medical history which is included recent diagnosis of hypertension, recent penile injury resulting in surgical debridement, and tobacco use who presents with symptoms concerning for unstable angina pectoris. The patient states that recently he has been diagnosed with hypertension and placed on medical management. He also believes he had a spider bite to his penis. This led to a urologic evaluation which he states that led to urologic surgery which has resulted in surgical debridement of a wound on his penis for which she is still doing antibiotics/surgical dressings. He notes that during this time he feels that he has been more short of breath and dyspneic especially with activity. He notes that he has developed chest discomfort and yesterday evening he awoke with chest discomfort. He states it started initially in his back and then radiated around the right side of his chest and down his right upper extremity with right upper extremity paresthesias. It then radiated to his left upper extremity. He became very diaphoretic. He does not recall any acute nausea or emesis. He woke his from sleep. She states that he was very diaphoretic. He was brought to the hospital for further evaluation. In the emergency department he was evaluated which included cardiac enzymes and an ECG. His troponin I level was negative and his ECG demonstrated sinus rhythm with no acute ECG changes. He was treated with nitroglycerin sublingual and had improvement in his symptoms. He also underwent a chest CTA which demonstrated no great vessel disease or thromboembolic disease. He had recurrence of his symptoms again requiring additional nitrate therapy. He was subsequently placed in the PCU for further evaluation. He states status post nitrate therapy he feels better but he still feels some residual chest discomfort. He had a repeat troponin I level which was negative. His repeat ECG again demonstrated sinus rhythm with no acute ECG changes. He does state he underwent diagnostic cardiac catheterization years ago following an accident. He states his accident resulted in chest trauma. He was evaluated [facility] and transferred to [facility]. To the best of his knowledge his cardiac catheterization demonstrated no evidence of underlying CAD. He states he was told he had a bruised heart. [] Past Medical History Allergies/Adverse Reactions: Allergies No Known Allergies Allergy (Verified 10/12/17 22:37) Home Medications: Ambulatory Orders Medication Instructions Recorded Amlodipine [Norvasc] 2.5 mg PO DAILY #30 tab 10/13/17 Past Medical History (Chronic Problems): Chronic Problems Hypertension (Chronic) Tobacco use (Chronic) Surgical History: - - Penile exploration and previous scar tissue removal from urethra, T+A. Psychiatric History: No pertinent psych hx - *Family History Maternal History Items: Heart Disease - Notable young cardiac disease history in his mother. Paternal History Items: Cancer Lives: Spouse/ Significant Other Smoking Status: Current every day smoker Tobacco Use: Cigarettes Alcohol: Occasional Drugs: None Review of Systems - Review of Systems General: Denies: Fever, Night Sweats, Fatigue Cardiovascular: Reports: Chest Discomfort, Chest Discomfort at Rest, Shortness of Breath, Shortness of Breath at Rest, Shortness of Breath with Exertion. Denies: Orthopnea, PND, Peripheral Edema, Palpitations, Lightheadedness, Dizziness, Near Syncope, Syncope Respiratory: Reports: Cough, Shortness of Breath. Denies: Sputum Production, Hemoptysis Gastrointestinal: Denies: Hematemesis, Hematochezia, Melena Genitourinary: Denies: Dysuria, Hematuria Skin: Denies: Rash Subjectve: Is a 52-year-old white male who appears to be resting reasonably comfortably at the moment in no acute distress. Objective: Vital Signs Temp Pulse Resp BP Pulse Ox 98.0 F 72 14 115/77 96 11/03/17 06:24 11/03/17 06:24 11/03/17 06:24 11/03/17 06:24 11/03/17 06:24 Oxygen Delivery Method Room Air Weight: 165 lb 2.02 oz Body Mass Index (BMI) 23.6 General: Awake, Alert, Oriented x 3, Cooperative, No Acute Distress HEENT: Atraumatic, Normocephalic, PERRL, EOMI, Sclera Non Icteric Oral: Moist Mucosa Neck: Supple, Good ROM, No JVD Chest Wall: - - Tender to palpation Lungs: Clear to auscultation Cardiovascular: Regular Rhythm, Normal S1, Normal S2 Vascular: No Carotid Bruits Abdomen: Bowel Sounds Present, Soft, Non Tender Genitalia: - - Penile lesion: Surgical debridement: No obvious hemorrhage at this time Extremities: No Cyanosis, No Clubbing, No edema Neurological: No Focal Motor or Sensory Deficit Psych/Mental Status: Appropriate, Normal Affect 11/03/17 03:26: WBC 9.7, RBC 4.21 L, Hgb 13.6, Hct 40.5, MCV 96.2 H, MCH 32.3 H, MCHC 33.6, RDW 12.8, RDW Differential 44.2 H, Plt Count 300, MPV 9.6, Immature Gran % (Auto) 0.400, Neut % (Auto) 43.1 L, Lymph % (Auto) 42.6 H, [place] % (Auto) 7.0, Eos % (Auto) 5.9 H, Baso % (Auto) 1.0, Absolute Neuts (auto) 4.2, Total Counted Not Reportable 11/03/17 03:26: Sodium 142, Potassium 4.1, Chloride 107, Carbon Dioxide 28.0, Anion Gap 7, BUN 15, Creatinine 1.08, Est GFR (MDRD) Af Amer 92, Est GFR (MDRD) Non-Af 76, BUN/Creatinine Ratio 13.9, Glucose 116 H, Calcium 8.2 L, Troponin I < 0.015 11/03/17 06:40: PT 12.7, INR 1.0, APTT 26.5 11/03/17 06:40: Magnesium 2.2 11/03/17 06:40: Troponin I < 0.015 Rhythm: Sinus rhythm EKG: As noted above Chest CT Scan: Preliminary evaluation as noted above Assessment/Plan 1. Unstable angina pectoris The patient presents with cardiovascular risk factors of his recent diagnosis of hypertension, long-standing tobacco abuse, positive family history of cardiovascular disease in his mother, now with resting/nocturnal symptoms concerning for unstable angina pectoris, without acute cardiac enzyme or ECG change, who is referred for further cardiovascular evaluation. The patient has been evaluated for great vessel disease and thromboembolic disease with a chest CTA. This was negative. The patient does not present with symptoms considered classic by history, exam, laboratory studies, or ECG, at this time compatible with an acute pericardial disease process. From a cardiac standpoint he would be considered for further evaluation, based on his clinical scenario, with diagnostic cardiac catheterization to assess for underlying CAD leading to his presentation. Depending upon the findings he may or may not need further evaluation from a cardiac standpoint. If this procedure is unremarkable for an explanation of his symptoms then consideration would have to be given to additional noncardiovascular related etiologies. This may include musculoskeletal or gastrointestinal. In the interim the patient would continue to be monitored. He will continue medical therapy as deemed appropriate. The above was discussed with the patient with his spouse present. The cardiac catheterization procedure with respect to risks and benefits was discussed with the patient with his spouse present. They were both agreeable to this approach. 2. Hypertension The patient will continue antihypertensive therapy with adjustment as needed. 3. Tobacco abuse The patient acknowledges that he needs to not only decreased but discontinue his tobacco intake. 4. Penile injury The patient will need to continue evaluation care per internal medicine. He is also been evaluated by Dr. Johnson of urology. The patient's case has also been previously discussed and discussed with the [facility] emergency department staff. This note was generated with [employer] software. It may contain incorrect words, spelling, and punctuation that were not noted in checking the note before signing. 11/03/17806 <Electronically signed by Chandu Mendenhall MD> Date Chandu Mendenhall MD Cosigner Signature (if applicable): Date CC: No Primary Care Physician; Woo Johnson MD; Chandu Mendenhall MD Signed MAGNESIUM Collected: 11/03/2017 Status: F Source: ERNEST 6:40 AM [facility] REPOSITORY TYPE CODE TESTS RESULT OUT OF RANGE REFERENCE UNITS LAB L501.5200 1.6-2.6 mg/dL Normal MG 2.2 Performed By: #### L501.5200 #### [facility] [address] [place], [address] PROTHROMBIN TIME W/INR Collected: 11/03/2017 Status: F Source: ERNEST 6:40 AM [facility] REPOSITORY TYPE CODE TESTS RESULT OUT OF RANGE REFERENCE UNITS LAB L300.4150 11.7-14.9 SECONDS Normal PROTIME 12.7 LAB L300.4200 Normal INR 1.0 Performed By: #### L300.3900, L300.4310 #### [facility] [address] [place], [address] PARTIAL THROMBOPLAST Collected: 11/03/2017 Status: F Source: ERNEST TIME 6:40 AM [facility] REPOSITORY TYPE CODE TESTS RESULT OUT OF RANGE REFERENCE UNITS LAB L300.4310 24.1-36.2 Seconds Normal PTT 26.5 Performed By: #### L300.3900, L300.4310 #### [facility] [address] [place], [address] HISTORY AND PHYSICAL Observed: 11/03/2017 Status: F Source: ERNEST EXAM 6:10 AM [facility] REPOSITORY [facility] Medical Records Department [address] [place] [address] History and Physical 11/03/17 0524 MR#: [id number] Acct: [id number] Name: TESFAYE FRAUSTO Rep #: [id number] : 1965 52 From: Cassandra Ramires PCP: Care Physician, No Primary Status: ADM KAYDEN Y Location: [place] [address] ADDENDUM by Cassandra Ramires on 11/03/17 at 0610 Code Visit Cardiology noting intention of evaluation in AM with likely cardiac catheterization. 11/03/17 0610 <Electronically signed by Cassandra Ramires > Date Cassandra Ramires cc: No Primary Care Physician; Cassandra Ramires * Signed Problem List (1) Chest pain Status: Acute Qualifiers: Ischemic chest pain type: unspecified angina pectoris type (2) Tobacco use Status: Chronic (3) Hypertension Status: Chronic Qualifiers: Hypertension type: essential hypertension Qualified Code(s): I10 - Essential (primary) hypertension History of Present Illness Date of Admission: 11/03/17 Chief Complaint: Chest pain The patient is a 52 y/o M w/ PMHx: Tobacco use, HTN who presents to the [facility] ED on 11/03/17 w/ 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 Patient and also report history of 1-1.5 weeks severe dyspnea with exertion. Patient prior to this very active without issue. In the ED work-up included T 98, HR 87, BP 213/182-->127/88, RR 16, 96% on RA, CBC with WBC 9.7, hemoglobin 13.6, platelet 300, BMP with glucose with restriction, troponin less than 0.015, chest x-ray with chronic COPD changes, CTPA with emphysematous and fibrotic changes in the lung, bronchiectasis with bronchial wall thickening, EKG SR without acute evidence of ischemia. In the ED patient administered Zofran and asa as well as NG per EMS. Patient noted improvement in the ED transiently to 3/10, upon evaluation recurrent 5- 6/10. Discussed w/ ED and given concerning history, recurrent chest pain will have NG series performed and will review case with cardiology for consideration cardiac catheterization directly. Past Medical History Past Medical History (Chronic Problems): Chronic Problems Hypertension (Chronic) Tobacco use (Chronic) Allergies No Known Allergies Allergy (Verified 10/12/17 22:37) Home Medications: Ambulatory Orders Medication Instructions Recorded Amlodipine [Norvasc] 2.5 mg PO DAILY #30 tab 10/13/17 Surgical History: - - Penile exploration and previous scar tissue removal from urethra, T+A. Psychiatric History: No pertinent psych hx Lives: Spouse/ Significant Other Smoking Status: Current every day smoker - 1/2 ppd cigarette tobacco use. Tobacco Use: Non-smoker Alcohol: Occasional Drugs: None - *Family History Maternal History Items: Heart Disease - Notable young cardiac disease history in his mother. Paternal History Items: Cancer Review of Systems Constitutional: Reports: Malaise, Weakness, Fatigue. Denies: Chills, Fever, Weight Change HEENT: Denies: Head Aches, Sinus Congestion, Sinus Drainage Cardiovascular: Reports: Chest Pain, Chest Pressure, Chest Tightness, Light Headedness. Denies: Palpitations Respiratory: Reports: Shortness of Breath, Shortness of breath upon exertion. Denies: Cough, Shortness of breath at rest, Sputum production Gastrointestinal: Reports: Nausea. Denies: Abdominal Pain, Vomiting Genitourinary: Denies: Dysuria Musculoskeletal: Denies: Joint Pain, Joint Tenderness Skin: Denies: Rash, Wounds Neurological: Denies: Numbness, Tingling, Focal weakness Psychiatric: Denies: Anxiety, Depression, Homicidal Ideations, Suicidal Ideations Hematologic/ Lymphatic: Denies: Easy Bruising, Easy Bleeding VTE Information - Inpt Only VTE Present on Admission: No VTE Mechan Device Prophylaxis: SCD's VTE Pharm Prophylaxis ordered?: Yes Patient Problems: Active and Suspected Problems Chest pain (Acute) Subjective: Seated upright in the ED bed, notes recurrent chest pain, 5-07/18. Objective: Physical Examination: General: awake, alert, oriented x 3 and cooperative, seated upright in the ED bed in no apparent distress but notes recurrent chest pain. Skin: normal color, turgor, no icterus, cyanosis. HEENT: AT/NC, EOMI, PERRLA, MMM, no carotid bruits or JVD noted. Lungs: Diminished BS, > BL bases, no rales, ronchi or wheezing. Heart: Regular rate and rhythm; no gallop, rub audible. Abdomen: soft, NTTP, ND, normal BS, no HSM. Extremities: no cyanosis, clubbing, or edema. Neurological: patient awake, alert, oriented x 3; cognitive function intact; pupils equally reactive to light and accomodation; cranial nerves II-XII grossly normal, moving all 4 extremities, no focal deficits, strength severely globally decreased secondary to acute presentation. Psychiatric: affect appears fatigued, no acute evidence of depressive or anxiety feelings. 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 Patient and also report history of 1-1.5 weeks severe dyspnea with exertion. Patient prior to this very active without issue. (1) Chest Pain, Concerning for UA: ED work-up included T 98, HR 87, BP 213/182-->127/88, RR 16, 96% on RA, CBC with WBC 9.7, hemoglobin 13.6, platelet 300, BMP with glucose with restriction, troponin less than 0.015, chest x-ray with chronic COPD changes, CTPA with emphysematous and fibrotic changes in the lung, bronchiectasis with bronchial wall thickening, EKG SR without acute evidence of ischemia. Will admit to PCU, place on a monitored bed to assure no acute myocardial infarction with serial cardiac enzymes and EKGs. Given concerning onset history and prior 1-1.5 week exertional dyspnea, awaiting Cardiology input for consideration cardiac catheterization versus continuation w/ nuclear stress testing given recent exercise intolerance. ASA, NG, morphine. FLP in AM. Mag pending. (2) Hypertension: Continue home regimen including Norvasc with addition of additional oral regimen to maintain appropriate BP. (3) Recent Penile Edema, Cellulitis: History of penile intervention in youth w/ scar tissue intervention at later date. treated with 7 day regimen augmentin per ID recommendation. (4) Chronic COPD: ATC duonebs, PRN albuterol, HOB, IS parameters. (5) Tobacco Abuse: Encouraged cessation, inpatient consultation per RT, NR if desired. (6) Hyperglycemia: Admission glucose 116, likely stress response. (7) GERD: Famotidine. (8) DVT prophylaxis: SCDs, lovenox. Code Visit OBSV E AND M: [id number] Initial observation care L3 11/03/17 0600 <Electronically signed by Cassandra Ramires > Date Cassandra Ramires Cosigner Signature: Date (if applicable) CC: No Primary Care Physician; Cassandra Ramires Signed EMERGENCY DEPARTMENT Observed: 11/03/2017 Status: F Source: ERNEST SUMMARY 5:34 AM [facility] REPOSITORY [facility] Medical Records Department [address] [place] [address] Emergency Department Summary 11/03/17 0526 MR#: [id number] Acct: [id number] Name: TESFAYE FRAUSTO SHIRA Rep #: [id number] : 1965 52 From: David Youssef MD PCP: Care Physician, No Primary Status: REG ER - ER Visit Summary Date of Service: 11/03/17 Chief Complaint: Chest pain History of Present Illness: The patient is a 52 M who presents with chest pain. It began suddenly 1-1-1/2 hours prior to presentation. It began at rest. He states he initially began to have pain between shoulder blades and in the right back which then radiated around to the front of his chest in almost a bandlike pattern. He states this was crushing. He states that at its worst it was 10 out of 10 and at the time my history is 4-5 out of 10 and he describes it as tolerable. There was associated diaphoresis shortness of breath and lightheadedness. No history of prior similar symptoms. He was given aspirin nitroglycerin and morphine prehospital. He states he is feeling better currently but believes his symptoms had began to improve on their own even prior to the medication administration. His pain was radiating down the right arm this has resolved. He states he had bilateral arm numbness. His cardiac risk factors include hypertension family history and smoking. Additionally he has recently been hospitalized. He was taken to the operating room for possible penile fracture. He was then readmitted for possible infection. Physical Examination: Initial blood pressure recorded is 213/182 however I believe this was an inaccurate reading is on repeat it was 151/88 and subsequent blood pressures have been normal. Vitals otherwise unremarkable Initially as the patient was being taken by EMS to the bed he appeared pale and diaphoretic. This has improved and he is mildly diaphoretic at the time of my examination Heart regular rate and rhythm Patient has some scattered expiratory wheezing but is in no distress no increased work of breathing or retractions Abdomen soft nontender Patient does have a penile wound and some ulceration Alert Extremities nontender with easily palpable and symmetric radial and dorsalis pedis pulses Test Results: EKG shows normal sinus rhythm at a rate of 88 with no acute ischemic changes. CBC BMP troponin unremarkable. Chest x-ray shows possible COPD otherwise normal. CTA of the chest shows some findings consistent with bronchitis but no acute pathology no pulmonary embolism or dissection. Emergency Department Course and Treatment: Patient's description of symptoms and presentation is concerning for angina. His EKG is normal and his enzymes are normal. Although his symptoms were not as classic description for pulmonary embolism he did describe sudden onset of symptoms with recent surgery and recent hospitalization shortness of breath so CTA was obtained to rule out pulmonary embolism which was normal. On reevaluation he is resting comfortably and states his pain is currently 3 out of 10. His CHERRY risk score is 2, his heart score is 5. I do feel the patient will need further evaluation including repeat EKGs, serial troponins, likely stress testing. Patient was discussed with the hospitalist will be admitted. Treatment Plan: [] Disposition: Admit Impression: Chest pain This note was generated with [employer] dictation software. It may contain incorrect words, spelling, and punctuation that were not noted in review of the chart prior to signing ED Disposition - Plan for ED Patient: Chief Complaint: Chest Pain Referrals: Care Physician,No Primary [Primary Care Provider] - What to do if you have Problems For any increased pain, shortness of breath, bleeding, nausea or vomiting, chest pain, or any unexpected problems, contact your Primary Care Provider. Call [facility] ([phone]) or report to the closest Emergency Room. Call 911 if necessary. 11/03/17 4117 <Electronically signed by David Youssef MD> Date David Youssef MD Cosigner Signature (If Indicated): Date CC: No Primary Care Physician CTA CHEST W/WO Observed: 11/03/2017 Status: F Source: AMALIA CONTRAST 4:23 AM [facility] REPOSITORY [facility] Imaging Services [address] [place] [address] CTA Chest W/WO Contrast MR#: [id number] Acct: [id number] Name: TESFAYE FRAUSTO Rep #: [id number] : 1965 M 52 From: Skip Nash MD PCP: Care Physician, No Primary Status: REG ER Study: CTA Chest W/WO Contrast Date of Exam: 11/03/17 Exam# [id number] Ordering Dr: David Youssef MD STUDY: CTA CHEST REASON FOR EXAM: Male, 52 years old. Chest pain which radiates to the right arm and across the chest. History of hypertension. RADIATION DOSAGE (If Supplied By Facility): CTDIvol = ( 14.93 ) mGy, DLP = ( 529.48 ) mGycm TECHNIQUE: The examination was performed with the intravenous administration of 75ML ml of Isovue 370 contrast material. Post-processing of the angiographic images was performed, with multiplanar reformation, but without 3D reconstruction. Individualized dose optimization techniques were used for this CT. COMPARISON: None. FINDINGS: Normal enhancement of the main pulmonary artery and right and left pulmonary arteries. Normal enhancement of the bilateral peripheral pulmonary arteries. There is no demonstrated pulmonary embolism. Normal thoracic aorta. There is minimal atherosclerotic calcification of the visualized great vessels. There is no demonstrated aortic dissection. Normal heart and pericardium. There are coronary artery calcifications. There are small mediastinal and hilar lymph nodes which are normal in size and morphology.. Normal visualized trachea. There is mild bronchiectasis. There is mural thickening of bronchi, consistent with an infectious or inflammatory bronchitis.. The lungs are hyper expanded, with flattening of the hemidiaphragms. There are emphysematous changes in the lungs as well as mild fibrotic changes. There are no demonstrated pulmonary infiltrates. Normal pleura. Normal chest wall structures. There are multilevel degenerative changes of thoracic spine. Normal visualized upper abdomen. CT/CTA Chest W/WO Contrast IMPRESSION: Normal CTA chest examination, without a demonstrated pulmonary embolism or arterial dissection. Mild atherosclerosis. Emphysematous and fibrotic changes in the lungs. Bronchiectasis with bronchial wall thickening, consistent with an infectious or inflammatory bronchitis. No evidence for acute cardiopulmonary pathology. Electronically Signed: Skip Nash MD at 5:16 EDT , Service support , CC: No Primary Care Physician; David Youssef MD Credit And Collections Analyst: Signed CHEST 1 VIEW Observed: 11/03/2017 Status: F Source: ERNEST (PORTABLE) 3:35 AM [facility] REPOSITORY [facility] Imaging Services [address] [place] [address] Chest 1 View (Portable) MR#: [id number] Acct: [id number] Name: TESFAYE FRAUSTO SHIRA Rep #: [id number] : 1965 M 52 From: Skip Nash MD PCP: Care Physician, No Primary Status: REG ER Study: Chest 1 View (Portable) Date of Exam: 11/03/17 Exam# [id number] Ordering Dr: David Youssef MD STUDY: X-RAY CHEST REASON FOR EXAM: Male, 52 years old. Chest pain that started in the right arm. TECHNIQUE: Single AP portable view of the chest. COMPARISON: 10/12/2017. FINDINGS: The lungs are clear and mildly hyper expanded. There is no demonstrated pleural abnormality. Normal size heart. Normal mediastinum and carmina. Normal visualized pulmonary arteries. Normal visualized aortic arch and descending thoracic aorta. Normal visualized thoracic spine. There are several old healed left rib fractures. There is no demonstrated abnormality of the visualized soft tissue structures of the upper abdomen. RAD/Chest 1 View (Portable) IMPRESSION: Mild hyperexpansion of lungs, possibly representing COPD. No evidence for acute cardiopulmonary pathology. Electronically Signed: Skip Nash MD at 3:57 EDT , Service support , CC: No Primary Care Physician; David Youssef MD Credit And Collections Analyst: Signed CBC W/DIFF, AUTOMATED Collected: 11/03/2017 Status: F Source: AMALIA 3:26 AM [facility] REPOSITORY TYPE CODE TESTS RESULT OUT OF RANGE REFERENCE UNITS LAB L100.1000 4.4-11.0 K/mm3 Normal WBC 9.7 LAB L100.1200 4.6-6.2 M/mm3 Low RBC 4.21 LAB L100.1300 13.0-16.5 g/dl Normal HGB 13.6 LAB L100.1400 40-54 % Normal HCT 40.5 LAB L100.1500 80-94 fL High MCV 96.2 LAB L100.1600 27.0-32.0 pg High MCH 32.3 LAB L100.1700 32-36 g/gl Normal MCHC 33.6 LAB L100.1810 11.6-14.6 % Normal RDW CV 12.8 LAB L100.1820 35.1-43.9 fl High RDW SD 44.2 LAB L100.1900 150-450 K/mm3 Normal PLT 300 LAB L100.2000 6.2-12.0 fl Normal MPV 9.6 LAB L100.2100 47-70 % Low NEUT% 43.1 LAB L100.2200 19-41 % High LY% 42.6 LAB L100.2300 0-10 % Normal MONO% 7.0 LAB L100.2400 0-5 % High EO% 5.9 LAB L100.2500 0-1 % Normal BASO% 1.0 LAB L100.2550 0.0-0.9 % Normal IM GRAN % 0.400 Result Comment: IG% - Immature Granulocytes (promyelocytes, myelocytes and metamyelocytes) > 1% indicates that a LEFT SHIFT is Present. LAB L100.2620 2.0-7.7 X10 3/uL Normal Absolute Neut 4.2 LAB L100.2720 0.83-4.51 X10 3/ul Normal Absolute Lymph 4.14 Performed By: #### L100.0100 #### [facility] [address] [place], [address] BASIC METABOLIC Collected: 11/03/2017 Status: F Source: ERNEST PROFILE (BMP) 3:26 AM [facility] REPOSITORY TYPE CODE TESTS RESULT OUT OF RANGE REFERENCE UNITS LAB L501.0100 74-106 mg/dL High GLU 116 Result Comment: Fasting Glucose result from 100 to 125 mg/dL suggests IMPAIRED HOMEOSTASIS per A.D.A. criteria. Please note revised GLUCOSE reference range effective 2017. LAB L501.1000 7-18 mg/dL Normal BUN 15 LAB L501.1100 0.70-1.30 mg/dL Normal CREAT,SERUM 1.08 Result Comment: The validity of the calculated GFR AND GFRAA in patients over 70 years has not been determined. Clinical correlation is essential. LAB L501.1110 >60 mL/min Normal EST GFR 76 Result Comment: Non- GFR Calc LAB L501.1115 >60 mL/min Normal EST GFR - AA 92 Result Comment: GFR Calc LAB L501.1255 ml/min Normal Estimated CRCL 81.67 LAB L501.1300 10-20 RATIO Normal BUN/CRE 13.9 LAB L501.2200 8.5-10 mg/dL Low .1 CA 8.2 LAB L501.5300 136-14 mmol/L Normal 5 NA 142 LAB L501.5600 3.5-5. mmol/L Normal 1 K 4.1 LAB L501.5900 98-107 mmol/L Normal CL 107 LAB L501.6100 21.0-3 mmol/L Normal 2.0 CO2 28.0 LAB L501.6200 5-15 Normal GAP 7 Performed By: #### L500.2500, L501.4010 #### [facility] [address] [place], [address] TROPONIN-I Collected: 11/03/2017 Status: F Source: ERNEST 3:26 AM [facility] REPOSITORY TYPE CODE TESTS RESULT OUT OF RANGE REFERENCE UNITS LAB L501.4010 <0.045 ng/mL Normal < 0.015 TROPONIN-I Result Comment: TROPONIN-I EXPECTED VALUES <0.045 Negative 0.045 - 0.590 Consistent with Cardiac Damage > OR = 0.600 Critical Value Not every elevated troponin is indicative of IL. These values should be used with clinical judgement in examining the patient's clinical picture for diagnosis. To establish a diagnosis of IL versus myocardial injury, there must be a demonstrated rise and/or fall in the troponin values, in addition to ischemic symptoms, EKG changes, new regional wall motion abnormality, and/or angiographical evidence. PLEASE NOTE: REFERENCE RANGES EDITED 17 Performed By: #### L500.2500, L501.4010 #### [facility] [address] [place], [address] EMERGENCY DEPARTMENT Observed: 10/24/2017 Status: F Source: ERNEST SUMMARY 5:11 PM [facility] REPOSITORY [facility] Medical Records Department [address] [place] [address] Emergency Department Summary 10/24/17 1627 MR#: [id number] Acct: [id number] Name: TESFAYE FRAUSTO Rep #: [id number] : 1965 52 From: Rito Woods MD PCP: Care Physician, No Primary Status: REG ER - ER Visit Summary Date of Service: 10/24/17 Chief Complaint: Increased pain and swelling of penis History of Present Illness: The patient is a 52 M who was seen on October 06 and admitted for possible fractured penis after vigorous intercourse with . Exploration did not reveal fracture of the penis. He was admitted on October 13 for possible infection, postop. He now presents because of increased pain and swelling. Apparently, he is applying peroxide to the wound. He complained of subjective fever. There is been no increased drainage. There is increased swelling on the ventral side of the penis. Physical Examination: Vital signs noted unremarkable he is afebrile. Dressing was removed. He has granulation tissue. There is slight swelling. This might be slightly increased compared to prior her doctor Dori Medel who saw him prior visit. There is no erythema. There is no warmth. He will not tell me to palpate because of exquisite pain. There is no inguinal lymphadenopathy. There is an open wound with granulation tissue. There is no evidence in my professional medical opinion of infection. Test Results: CBC and BMP are unremarkable. Emergency Department Course and Treatment: Because patient complains of subjective fever CBC was obtained. He was medicated in hopes of allowing/permitted me to perform a complete exam. Treatment Plan: Discontinue peroxide application and follow instructions given by Dr. Johnson. Disposition: Discharged to home Impression: Dehiscence incision without evidence of infection Ivan estrada like that name at home This note was generated with [employer] dictation software. It may contain incorrect words, spelling, and punctuation that were not noted in review of the chart prior to signing ED Disposition - Plan for ED Patient: Disposition: Home or Assisted Living Chief Complaint: Abscess Instructions: ED Post Op Pain, ED Wound Check Post Op No Infec Referrals: Care Physician,No Primary [Primary Care Provider] - Woo Johnson MD [STAFF PHYSICIAN] - Additional Instructions: Discontinue application of peroxide to your wound. It is my fashion medical opinion the peroxide major wound worse and the cause of your increased swelling. What to do if you have Problems For any increased pain, shortness of breath, bleeding, nausea or vomiting, chest pain, or any unexpected problems, contact your Primary Care Provider. Call [facility] ([phone]) or report to the closest Emergency Room. Call 911 if necessary. 10/24/17 0771 <Electronically signed by Rito Woods MD> Date Rito Woods MD Cosigner Signature (If Indicated): Date CC: No Primary Care Physician; Woo Johnson MD CBC W/DIFF, AUTOMATED Collected: 10/24/2017 Status: F Source: AMALIA 4:30 PM [facility] REPOSITORY TYPE CODE TESTS RESULT OUT OF RANGE REFERENCE UNITS LAB L100.1000 4.4-11.0 K/mm3 Normal WBC 9.4 LAB L100.1200 4.6-6.2 M/mm3 Low RBC 4.20 LAB L100.1300 13.0-16.5 g/dl Normal HGB 13.7 LAB L100.1400 40-54 % Normal HCT 40.7 LAB L100.1500 80-94 fL High MCV 96.9 LAB L100.1600 27.0-32.0 pg High MCH 32.6 LAB L100.1700 32-36 g/gl Normal MCHC 33.7 LAB L100.1810 11.6-14.6 % Normal RDW CV 12.6 LAB L100.1820 35.1-43.9 fl High RDW SD 44.3 LAB L100.1900 150-450 K/mm3 Normal PLT 335 LAB L100.2000 6.2-12.0 fl Normal MPV 9.7 LAB L100.2100 47-70 % Normal NEUT% 58.1 LAB L100.2200 19-41 % Normal LY% 28.4 LAB L100.2300 0-10 % Normal MONO% 8.3 LAB L100.2400 0-5 % Normal EO% 4.5 LAB L100.2500 0-1 % Normal BASO% 0.6 LAB L100.2550 0.0-0.9 % Normal IM GRAN % 0.100 Result Comment: IG% - Immature Granulocytes (promyelocytes, myelocytes and metamyelocytes) > 1% indicates that a LEFT SHIFT is Present. LAB L100.2620 2.0-7.7 X10 3/uL Normal Absolute Neut 5.5 LAB L100.2720 0.83-4.51 X10 3/ul Normal Absolute Lymph 2.67 Performed By: #### L100.0100 #### [facility] [address] [place], [place], [id number] BASIC METABOLIC Collected: 10/24/2017 Status: F Source: AMALIA PROFILE (BMP) 4:30 PM [facility] REPOSITORY TYPE CODE TESTS RESULT OUT OF RANGE REFERENCE UNITS LAB L501.0100 74-106 mg/dL Normal GLU 89 Result Comment: Please note revised GLUCOSE reference range effective 2017. LAB L501.1000 7-18 mg/dL Normal BUN 14 LAB L501.1100 0.70-1.30 mg/dL Normal CREAT,SERUM 1.01 Result Comment: The validity of the calculated GFR AND GFRAA in patients over 70 years has not been determined. Clinical correlation is essential. LAB L501.1110 >60 mL/min Normal EST GFR 82 Result Comment: Non- GFR Calc LAB L501.1115 >60 mL/min Normal EST GFR - AA 99 Result Comment: GFR Calc LAB L501.1255 ml/min Normal Estimated CRCL 87.33 LAB L501.1300 10-20 RATIO Normal BUN/CRE 13.9 LAB L501.2200 8.5-10 mg/dL Low .1 CA 8.3 LAB L501.5300 136-14 mmol/L Normal 5 NA 140 LAB L501.5600 3.5-5. mmol/L Normal 1 K 4.8 Result Comment: Moderate Hemolysis, Result may be falsely increased. LAB L501.5900 98-107 mmol/L Normal CL 103 LAB L501.6100 21.0-32.0 mmol/L Normal CO2 30.0 LAB L501.6200 5-15 Normal 7 GAP Performed By: #### L500.2500 #### [facility] [address] [place], [address] 12 LEAD ELECTROCARDIOGRAM Observed: 10/19/2017 Status: F Source: AMALIA 2:03 PM [facility] REPOSITORY [facility] Cardiovascular Services [address] [place] [address] 12 Lead EKG 10/12/17 2330 MR#: [id number] Acct: [id number] Name: TESFAYE FRAUSTO Rep #: [id number] : 1965 52 From: Alverto Griffin MD Attending Dr: Violetta Gatica MD Status: DIS KAYDEN Ordering Dr: Dori Breen MD Date: 10/12/17 Location: MS3 Sex: M C Admitted: 10/13/17 Test Reason : CELLULITIS Blood Pressure : / mmHG Vent. Rate : 104 BPM Atrial Rate : 104 BPM P-R Int : 130 ms QRS Dur : 090 ms QT Int : 354 ms P-R-T Axes : 070 083 059 degrees QTc Int : 465 ms Sinus tachycardia Otherwise normal ECG Confirmed by ALVERTO GRIFFIN ([id number]), web editor LAUREN WILSON ([id number]) on 10/19/2017 2:02:56 PM Referred By: SRIRAM Confirmed By:ALVERTO GRIFFIN 10/19/17 1403 Date Alverto Griffin MD CC: No Primary Care Physician; Violetta Gatica MD; Dori Breen MD Signed DISCHARGE SUMMARY Observed: 10/13/2017 Status: F Source: ERNEST 4:45 PM [facility] REPOSITORY [facility] Medical Records Department [address] [place] [address] Discharge Summary 10/13/17 1244 MR#: [id number] Acct: [id number] Name: TESFAYE FRAUSTO Rep #: [id number] : 1965 52 From: Violetta Gatica MD PCP: Care Physician, No Primary Status: DIS KAYDEN Y Location: [facility] LU301-3 Discharge Date and Diagnosis Date of Admission: 10/13/17 Date of Discharge: 10/13/17 - Primary Discharge Diagnosis Active and Suspected Problems Penile swelling (Acute) Penile cellulitis - Secondary Discharge Diagnosis Chronic Problems Hypertension (Chronic) Tobacco use disorder Hospital Course and Treatment Imaging Results: Clinical Impression(s) from Imaging Studies Chest X-Ray 10/12/17 23:20 IMPRESSION: Probable COPD without acute cardiopulmonary disease. Electronically Signed: Luis Abreu DO at 23:29 EDT Tel [phone], Service support , Consultations 10/13/17 03:29 Consult: Onc/Wound/hydro mechanic Routine Comment: Reason for Consult:: Penile wound Urology ID Operations: None Procedures: None Summary of Care Provided: The patient is a 52 year old M with past medical history of hypertension who comes in with a 9 day history of penile swelling. Patient had been seen in the emergency room on 10/06/2017 with similar complaints of penile swelling after rough sex with his partner. Penile fracture was suspected, surgical exploration was done by Dr. Johnson that did not reveal cavernosal tunica or spongiosum bodies rupture or damage. Patient was discharged home on antibiotics and pain medication. He subsequently presented to [facility] emergency room and was discharged. He came back to the ED with weeping ulcers and persistently edematous penile shaft. Admitted and managed as penile cellulitis. Urology and infectious disease were consulted. He had an eschar on his penile shaft as well as some blisters on the day of exam as well as erythema and swelling of his penis. His blisters and ulcers were believed to be initiated by a suspected spider bite as patient had gone camping prior to his initial presentation. Patient was recommended to be discharged on oral Augmentin for 1 more week. He was given a script for oxycodone for 5 more days. Discharge Diet: Low fat/ Low Cholesterol, 2000 mg Sodium Diet Discharge Activity: Return to Normal Activity Home Medications: Medications to take at Discharge Amlodipine [Norvasc] 2.5 mg PO DAILY #30 tab 10/13/17 Amoxicillin/Potassium Clav [Augmentin 875-125 Tablet] 1 ea PO BID #14 tab 10/13/17 Omeprazole [Prilosec] 10 mg PO DAILY 10/13/17 Oxycodone [Oxyir] 5 mg PO Q4H PRN PRN 5 Days #20 tablet 10/13/17 Following Prescrptions Were Given to Patient: Oxycodone [Oxyir] 5 mg PO Q4H PRN PRN 5 Days #20 tablet PRN Reason: Moderate Pain (pain scale 4-5) Amlodipine [Norvasc] 2.5 mg PO DAILY #30 tab Amoxicillin/Potassium Clav [Augmentin 875-125 Tablet] 1 ea PO BID #14 tab Primary Care Physician: Care Physician,No Primary [Primary Care Provider] - Please follow up with your Primary Care Physician in: within 2 weeks Please Follow Up With: Woo Johnson MD When: WITHIN 2 WEEKS Disposition: Home Minutes spent on discharge:: 40 Patient Condition:: Stable Medical Necessity - Tobacco Use Smoking Status: Current every day smoker Meaningful Use Info Meaningful Use Diagnoses (Choose all that apply): None applicable Code Visit Inpatient Rafaela MARCH M: [id number] Disch Hosp 10/13/17 1645 <Electronically signed by Violetta Gatica MD> Date Violetta Gatica MD Cosigner Signature (if applicable): Date CC: No Primary Care Physician; Violetta Gatica MD Signed DISCHARGE INSTRUCTION Observed: 10/13/2017 Status: F Source: ERNEST 12:44 PM [facility] REPOSITORY [facility] Medical Records Department [address] [place] [address] Instructions for Home/Discharge Instructions 10/13/17 1240 MR#: [id number] Acct: [id number] Name: TESFAYE FRAUSTO Rep #: [id number] : 1965 52 From: Violetta Gatica MD PCP: Care Physician, No Primary Status: ADM KAYDEN - Discharge Diagnoses Current Active Problems: Current Active and Chronic Problems Penile swelling (Acute) Hypertension (Chronic) Reason(s) for Visit for Discharge Instructions: Penile swelling You will use the following diet at home:: Cardiac Your food should be the consistency of: Regular Your liquids should be the consistency of: Regular/Thin Discharge Activity: Return to Normal Activity Additional Instructions: Complete your antibiotics. Follow- up with Dr. Johnson in 2 weeks. Go back to the ED if your penile swelling gets worse or your have worsening redness. Your BP was also high in the hospital. You have been started on a low dose BP medication. Follow-up with your PCP for BP check and re-evaluation in 1 week. Allergies/Adverse Reactions: Allergies No Known Allergies Allergy (Verified 10/12/17 22:37) Medications to take at Discharge Amlodipine [Norvasc] 2.5 mg PO DAILY #30 tab 10/13/17 Amoxicillin/Potassium Clav [Augmentin 875-125 Tablet] 1 ea PO BID #14 tab 10/13/17 Omeprazole [Prilosec] 10 mg PO DAILY 10/13/17 Oxycodone [Oxyir] 5 mg PO Q4H PRN PRN 5 Days #20 tablet 10/13/17 The following prescriptions were given: Oxycodone [Oxyir] 5 mg PO Q4H PRN PRN 5 Days #20 tablet PRN Reason: Moderate Pain (pain scale 4-5) Amlodipine [Norvasc] 2.5 mg PO DAILY #30 tab Amoxicillin/Potassium Clav [Augmentin 875-125 Tablet] 1 ea PO BID #14 tab Primary Care Physician: Care Physician,No Primary [Primary Care Provider] - Please follow up with your Primary Care Physician in: within 2 weeks Test Results: Test results from this visit will be discussed in further detail at your follow-up appointment, if applicable. Please Follow Up With: Woo Johnson MD When: WITHIN 2 WEEKS Proposed Discharge Date: 10/13/17 10/13/17 1244 <Electronically signed by Violetta Gatica MD> Date Violetta Gatica MD CC: No Primary Care Physician; Woo Johnson MD; Dez Aguilar MD BEDSIDE GLUCOSE Collected: 10/13/2017 Status: F Source: ERNEST 11:56 AM [facility] REPOSITORY TYPE CODE TESTS RESULT OUT OF REFERENCE UNITS RANGE LAB L501.080 70-110 mg/dL High BEDSIDE GLU 115 Result Comment: MANAGEMENT OF PATIENT CARE PER NURSING PROTOCOL Performed By: #### L501.080 #### [facility] Point of Care [address] [place] [address] CONSULTATION Observed: 10/13/2017 Status: F Source: ERNEST 10:58 AM [facility] REPOSITORY [facility] Medical Records Department [address] [place] [address] Consultation 10/13/17 1049 MR#: [id number] Acct: [id number] Name: TESFAYE FRAUSTO Rep #: [id number] : 1965 52 From: Dez Aguilar MD PCP: Care Physician, No Primary Status: ADM KAYDEN Y Location: MS3 [id number] Problem List (1) Penile swelling Status: Acute Reason for Consult: penile cellulitis Consulted by: Dr. Cedillo History of Present Illness: The patient is a 52 year old M with minimal PMH who went camping, did not notice any bug bites or ticks, came back around 10/03, had sex with female partner that evening. A few hours later noticed bruising on his penis. Thought he saw a small puncture at the site. Bruising spread with some what he calls vesicles. Over the next few days, reports bruising coalesced to some necrosis, associated with severe pain, some redness and swelling. Came to ED here 10/06, taken to OR by Dr. Johnson for exploration. No fracture seen, sent home on keflex. Had some ongoing drainage, clear/yellow/brownish. No fever, no n/v/d. No joint pain. Over past 2 days, feeling a lot better, drainage resolved, swelling improving. Last night ran out of pain meds and abx and was sent to ED. Started on vanc/zosyn, no new issues this AM. Full ROS performed and neg except as noted above. - Medical History Past Medical History (Chronic Problems): Chronic Problems Hypertension (Chronic) Allergies/Adverse Reactions: Allergies No Known Allergies Allergy (Verified 10/12/17 22:37) Home Medications: Ambulatory Orders Medication Instructions Recorded Omeprazole [Prilosec] 10 mg PO DAILY 10/13/17 - Social History Tobacco Use: cigarettes Vital Signs Temp Pulse Resp BP Pulse Ox 97.8 F 87 18 152/101 H 97 10/13/17 08:27 10/13/17 08:27 10/13/17 08:27 10/13/17 08:27 10/13/17 10:26 Oxygen Delivery Method Room Air Weight: 72.603 kg Body Mass Index (BMI) 22.9 Laboratory Tests Past 24 Hrs WBC 7.8 RBC 4.11 L Hgb 13.5 - Other Studies Radiology: [] reviewed Other Studies: [] Route of nutrition/ use of supplements: [] Nutritional Intake: [] IV Site: [] May Catheter: [] - Physical Exam General: Alert, Oriented x3, Cooperative, No apparent distress HEENT: Atraumatic, PERRLA, EOMI Neck: Supple, No Nodes Lungs: Clear to auscultation, Normal air movement Cardiovascular: Regular rate, Regular Rhythm, No murmurs Abdomen: Bowel Sounds Present, Soft, Non Tender, Non-Distended Extremities: No edema Skin: - - Some penis swelling, dry eschar, no drainage or redness IV Site: Peripheral, without redness Musculoskeletal: No Tenderness to Palpation of Joints or Extremities Neurological: Cranial nerves II-XII grossly intact - Assessment/Plan Antibiotics: [] Assessment/Plan: [] Active and Suspected Problems Penile swelling (Acute) Penile cellulitis - Not clear what the original insult was; spider bite is possible. Overall improved from previous per pt. No sign of purulence or erythema at this point. No dysuria. No fever. Normal wbc. Low suspicion for mrsa at this point given improvement on keflex. Will stop vanc. On zosyn. Ok for d/c home on augmentin from my perspective for 7 more day. Will follow, thank you, d/w hospitalist and case consultant. 10/13/17 1058 <Electronically signed by Dez Aguilar MD> Date Dez Aguilar MD Cosigner Signature (if applicable): Date CC: No Primary Care Physician; Woo Johnson MD; Dez Aguilar MD Signed CONSULTATION Observed: 10/13/2017 Status: F Source: ERNEST 7:42 AM [facility] REPOSITORY [facility] Medical Records Department [address] [place] [address] Consultation 10/13/17 0737 MR#: [id number] Acct: [id number] Name: TESFAYE FRAUSTO Rep #: [id number] : 1965 52 From: Woo Johnson MD PCP: Care Physician, No Primary Status: ADM KAYDEN Y Location: [place] [address] Reason for Consult Date of Consultation: 10/13/17 Reason for Consultation: Penile swelling penis infection History of Present Illness: The patient is a 52 year old male who was camping and then came home he did have intercourse with his supposedly was rough sex however never heard a pop or break or anything during intercourse. He then developed a lot of swelling the penis presented to the emergency room and we took him to surgery for exploration and found no rupture or damage to the cavernosal bodies tunica or the spongiosum bodies. He is now presented to the emergency room once up in [place] and also presented to the emergency room again here in [place]. He has been on antibiotics. He reports having developed a weeping ulcer from the edematous penile shaft, he was then admitted for IV antibiotics. I suspect he has cellulitis of the penile shaft with swelling and edema. We shall need to continue with IV antibiotics he is responding quite well Past Medical History Past Medical History (Chronic Problems): Chronic Problems Hypertension (Chronic) Allergies No Known Allergies Allergy (Verified 10/12/17 22:37) Home Medications: Ambulatory Orders Medication Instructions Recorded Omeprazole [Prilosec] 10 mg PO DAILY 10/13/17 Surgical History: - - Penile exploration; and previous scar tissue removal from urethra. Psychiatric History: No pertinent psych hx Lives: Spouse/ Significant Other Smoking Status: Current every day smoker - Smokes cigarettes. Alcohol: Occasional - *Family History Maternal History Items: No pertinent history Review of Systems Constitutional: Denies: Chills, Fever, Weight Change HEENT: Denies: Head Aches, Sinus Congestion, Sinus Drainage Cardiovascular: Denies: Chest Pain, Palpitations Respiratory: Denies: Cough, Shortness of breath at rest, Sputum production Gastrointestinal: Denies: Abdominal Pain, Nausea, Vomiting Genitourinary: Denies: Dysuria Musculoskeletal: Denies: Joint Pain, Joint Tenderness Skin: Denies: Rash, Wounds Neurological: Denies: Numbness, Tingling, Focal weakness Psychiatric: Denies: Anxiety, Depression, Homicidal Ideations, Suicidal Ideations Hematologic/ Lymphatic: Denies: Easy Bruising, Easy Bleeding Physical Exam Objective: On examination the incision line from the exploration is completely intact no breakdown, he does have a dry eschar on the lateral aspect of the penis, swelling and edema from last week is down and the redness from last week is down he does have an eschar over weeping wound is now dry I would recommend we keep this dry and do not pull off the eschar. - Physical Exam Vital Signs Temp 98.4 F 10/13/17 03:14 Pulse 87 10/13/17 03:14 Resp 18 10/13/17 03:14 BP 147/97 H 10/13/17 03:14 Pulse Ox 98 10/13/17 03:14 Intake AND Output Comment: On examination the penis is less swollen the last week Laboratory Tests Past 24 Hrs WBC 7.8 RBC 4.11 L Hgb 13.5 Assessment/Plan All Active Problems Penile swelling (Acute) 52-year-old male presented somewhat of a complicated case initially thought we was a penile fracture of the sternal to be negative on exploration I think at this point he just has cellulitis of the shaft penis, cause unclear if there is an abrasion or perhaps a spider bite, I do not see a tick or anything unusual, I do not see any obvious sites of the parasite etc. we will continue with IV Zosyn, and once he looks clinically stable we probably can discharge him home with Augmentin. We could consider infectious disease consult. 10/13/17 0742 <Electronically signed by Woo Johnson MD> Date Woo Johnson MD Cosigner Signature (if applicable): Date CC: No Primary Care Physician; Woo Johnson MD Signed BEDSIDE GLUCOSE Collected: 10/13/2017 Status: F Source: AMALIA 6:57 AM [facility] REPOSITORY TYPE CODE TESTS RESULT OUT OF RANGE REFERENCE UNITS LAB L501.080 70-110 mg/dL Normal BEDSIDE GLU 105 Result Comment: MANAGEMENT OF PATIENT CARE PER NURSING PROTOCOL Performed By: #### L501.080 #### [place] [facility] Point [facility] Care [address] [place] [address] CBC W/DIFF, AUTOMATED Collected: 10/13/2017 Status: F Source: AMALIA 3:55 AM [facility] REPOSITORY TYPE CODE TESTS RESULT OUT OF RANGE REFERENCE UNITS LAB L100.1000 4.4-11.0 K/mm3 Normal WBC 7.8 LAB L100.1200 4.6-6.2 M/mm3 Low RBC 4.11 LAB L100.1300 13.0-16.5 g/dl Normal HGB 13.5 LAB L100.1400 40-54 % Normal HCT 40.1 LAB L100.1500 80-94 fL High MCV 97.6 LAB L100.1600 27.0-32.0 pg High MCH 32.8 LAB L100.1700 32-36 g/gl Normal MCHC 33.7 LAB L100.1810 11.6-14.6 % Normal RDW CV 12.2 LAB L100.1820 35.1-43.9 fl Normal RDW SD 42.9 LAB L100.1900 150-450 K/mm3 Normal PLT 383 LAB L100.2000 6.2-12.0 fl Normal MPV 8.6 LAB L100.2100 47-70 % Low NEUT% 45.5 LAB L100.2200 19-41 % Normal LY% 39.8 LAB L100.2300 0-10 % Normal MONO% 8.7 LAB L100.2400 0-5 % Normal EO% 4.7 LAB L100.2500 0-1 % High BASO% 1.2 LAB L100.2550 0.0-0.9 % Normal IM GRAN % 0.100 Result Comment: IG% - Immature Granulocytes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 anything like this. He is on no blood thinners. He did use a condom. Physical Examination: Well-appearing male. Vital signs are stable afebrile. HEENT exam unremarkable. Lungs clear to auscultation. Heart regular rhythm no murmur. Abdomen soft and nontender normal bowel sounds no peritoneal signs. External exam circumcised male very swollen, tender, bruised penile shaft with some clear blistering. The testicles and scrotum are nontender. No masses. There is no discharge. No bleeding. He is moving all 4 extremities. They are neurovascularly intact. Neurologic exam is normal. Test Results: None Emergency Department Course and Treatment: Treated with IV morphine and Zofran. Treatment Plan: I spoke to Dr. Johnson and the patient will go to the OR for repair. Disposition: Discharge Impression: Acute penile pain and swelling secondary to penile fracture This note was generated with [employer] dictation software. It may contain incorrect words, spelling, and punctuation that were not noted in review of the chart prior to signing ED Disposition - Plan for ED Patient: Chief Complaint: Male Pain/Injury Referrals: Care Physician,No Primary [Primary Care Provider] - What to do if you have Problems For any increased pain, shortness of breath, bleeding, nausea or vomiting, chest pain, or any unexpected problems, contact your Primary Care Provider. Call [facility] ([phone]) or report to the closest Emergency Room. Call 911 if necessary. 10/06/17 1813 <Electronically signed by Kermit Victoria MD> Date Kermit Victoria MD Cosigner Signature (If Indicated): Date CC: No Primary Care Physician DISCHARGE INSTRUCTION Observed: 10/06/2017 Status: F Source: ERNEST 6:05 PM [facility] REPOSITORY [facility] Medical Records Department [address] [place] [address] Instructions for Home/Discharge Instructions 10/06/17 1804 MR#: [id number] Acct: [id number] Name: TESFAYE FRAUSTO SHIRA Rep #: [id number] : 1965 52 From: Woo Johnson MD PCP: Care Physician, No Primary Status: REG MIC Discharge Diet: Light diet - advance as tolerated Return to work on:: 10/18/17June shower in (days): 1 May resume sexual activity in: - - NO intercourse Call your doctor if your incision/area has: Continuous Slow Oozing, Sudden Increased Bleeding, Increased Pain/ Swelling, Increased Redness, Foul Smelling Discharge, Swelling at the incision site Suture Line Care: Avoid Pulling/Pushing, Avoid Pinching/Bending Allergies/Adverse Reactions: Allergies No Known Allergies Allergy (Verified 10/06/17 13:17) Medications to take at Discharge Cephalexin [Keflex] 500 mg PO TID #15 cap 10/06/17 Hydrocodone/Acetaminophen [Drift 5-325 Tablet] 1 ea PO Q4H PRN PRN 5 Days #20 tab 10/06/17 The following prescriptions were given: Hydrocodone/Acetaminophen [Drift 5-325 Tablet] 1 ea PO Q4H PRN PRN 5 Days #20 tab PRN Reason: Pain Cephalexin [Keflex] 500 mg PO TID #15 cap Primary Care Physician: Care Physician,No Primary [Primary Care Provider] - Test Results: Test results from this visit will be discussed in further detail at your follow-up appointment, if applicable. Please Follow Up With: Woo Johnson MD When: in 2 weeks, please call to make an appointment. 10/06/17 6701 <Electronically signed by Woo Johnson MD> Date Woo Johnson MD CC: No Primary Care Physician CONSULTATION Observed: 10/06/2017 Status: F Source: ERNEST 4:57 PM [facility] REPOSITORY [facility] Medical Records Department [address] [facility] [place] [address] Consultation 10/06/17 1653 MR#: [id number] Acct: [id number] Name: TESFAYE FRAUSTO Rep #: [id number] : 1965 52 From: Woo Johnson MD PCP: Care Physician, No Primary Status: REG [facility] Location: [place] [address] Reason for Consult Date of Consultation: 10/06/17 Reason for Consultation: Penile trauma during intercourse History of Present Illness: The patient is a 52 year old male who presented to the emergency room about 2-1/2 days ago described having rough sex with his partner and then after this developed a lot of swelling and pain in the penis and he has a lot of bruising and very tender penis does not want to be examined on exam the penis very swollen I suspect these had a fracture of the penile cavernosal bodies. I recommended we proceed with surgical exploration with a degloving of the penis and repair of injury if found. He understands the risk of developing erectile dysfunction as a result of the trauma from the rough sex is also a risk with the surgery causing erectile dysfunction. He was under the understanding without surgery he also takes a risk of developing erectile dysfunction if there is a rupture to the cavernosal body without having it repaired. After weighing his options he is agreed to undergo surgical exploration degloving of the penis and hopefully repair of a suspected cavernosal injury again I really could not do it good exam because he is super tender. Past Medical History Allergies No Known Allergies Allergy (Verified 10/06/17 13:17) Home Medications: Ambulatory Orders Medication Instructions Recorded NK [NK] 10/06/17 Surgical History: no surgical history Lives: Spouse/ Significant Other Smoking Status: Current every day smoker Tobacco Use: Cigarettes Alcohol: None Drugs: None - *Family History Maternal History Items: No pertinent history Review of Systems Constitutional: Denies: Chills, Fever, Weight Change HEENT: Denies: Head Aches, Sinus Congestion, Sinus Drainage Cardiovascular: Denies: Chest Pain, Palpitations Respiratory: Denies: Cough, Shortness of breath at rest, Sputum production Gastrointestinal: Denies: Abdominal Pain, Nausea, Vomiting Genitourinary: Denies: Dysuria Musculoskeletal: Denies: Joint Pain, Joint Tenderness Skin: Denies: Rash, Wounds Neurological: Denies: Numbness, Tingling, Focal weakness Psychiatric: Denies: Anxiety, Depression, Homicidal Ideations, Suicidal Ideations Hematologic/ Lymphatic: Denies: Easy Bruising, Easy Bleeding Physical Exam - Physical Exam Vital Signs Temp 98.1 F 10/06/17 13:14 Pulse 84 10/06/17 14:41 Resp 16 10/06/17 14:41 BP 145/97 H 10/06/17 14:41 Pulse Ox 97 10/06/17 14:41 Intake AND Output Weight: 77.111 kg General: Alert, Oriented x3 HEENT: Atraumatic Oral: Moist Mucosa Neck: Supple Lungs: Normal air movement Cardiovascular: Regular rate Abdomen: Soft, Obese Rectal: Exam deferred Penis: Circumcised, - - Penis is swollen and very tender and ecchymotic with bruising Groin: No hernia Extremities: No clubbing, No cyanosis, No edema Skin: No rashes Laboratory Tests Past 24 Hrs WBC 12.2 H RBC 4.30 L Hgb 14.0 Hct 42.4 MCV 98.6 H MCH 32.6 H MCHC 33.0 Assessment/Plan 52-year-old male with suspected penile fracture penile injury during intercourse planted taken today to surgery for exploration degloving and hopefully repair of cavernosal injury if discovered. He will be discharged home and he will follow- up in the office after the procedure. 10/06/17 1657 <Electronically signed by Woo Johnson MD> Date Woo Johnson MD Cosigner Signature (if applicable): Date CC: No Primary Care Physician Signed CBC W/DIFF, AUTOMATED Collected: 10/06/2017 Status: F Source: AMALIA 2:20 PM [facility] REPOSITORY TYPE CODE TESTS RESULT OUT OF RANGE REFERENCE UNITS LAB L100.1000 4.4-11.0 K/mm3 High WBC 12.2 LAB L100.1200 4.6-6.2 M/mm3 Low RBC 4.30 LAB L100.1300 13.0-16.5 g/dl Normal HGB 14.0 LAB L100.1400 40-54 % Normal HCT 42.4 LAB L100.1500 80-94 fL High MCV 98.6 LAB L100.1600 27.0-32.0 pg High MCH 32.6 LAB L100.1700 32-36 g/gl Normal MCHC 33.0 LAB L100.1810 11.6-14.6 % Normal RDW CV 12.9 LAB L100.1820 35.1-43.9 fl High RDW SD 46.1 LAB L100.1900 150-450 K/mm3 Normal PLT 256 LAB L100.2000 6.2-12.0 fl Normal MPV 9.8 LAB L100.2100 47-70 % High NEUT% 70.7 LAB L100.2200 19-41 % Low LY% 18.9 LAB L100.2300 0-10 % Normal MONO% 8.4 LAB L100.2400 0-5 % Normal EO% 1.6 LAB L100.2500 0-1 % Normal BASO% 0.3 LAB L100.2550 0.0-0.9 % Normal IM GRAN % 0.100 Result Comment: IG% - Immature Granulocytes (promyelocytes, myelocytes and metamyelocytes) > 1% indicates that a LEFT SHIFT is Present. LAB L100.2620 2.0-7.7 X10 3/uL High Absolute Neut 8.6 LAB L100.2720 0.83-4.51 X10 3/ul Normal Absolute Lymph 2.31 Performed By: #### L100.0100 #### [facility] [address] [facility] [place], [place], [address] BASIC METABOLIC Collected: 10/06/2017 Status: F Source: ERNEST PROFILE (BMP) 2:20 PM [facility] REPOSITORY TYPE CODE TESTS RESULT OUT OF RANGE REFERENCE UNITS LAB L501.0100 74-106 mg/dL Normal GLU 101 Result Comment: Fasting Glucose result from 100 to 125 mg/dL suggests IMPAIRED HOMEOSTASIS per A.D.A. criteria. Please note revised GLUCOSE reference range effective 2017. LAB L501.1000 7-18 mg/dL Normal BUN 11 LAB L501.1100 0.70-1.30 mg/dL Normal CREAT,SERUM 1.09 Result Comment: The validity of the calculated GFR AND GFRAA in patients over 70 years has not been determined. Clinical correlation is essential. LAB L501.1110 >60 mL/min Normal EST GFR 75 Result Comment: Non- GFR Calc LAB L501.1115 >60 mL/min Normal EST GFR - AA 91 Result Comment: GFR Calc LAB L501.1255 ml/min Normal Estimated CRCL 80.93 LAB L501.1300 10-20 RATIO Normal BUN/CRE 10.1 LAB L501.2200 8.5-10 mg/dL Normal .1 CA 8.8 LAB L501.5300 136-14 mmol/L Normal 5 NA 140 LAB L501.5600 3.5-5. mmol/L Normal 1 K 4.3 LAB L501.5900 98-107 mmol/L Normal CL 103 LAB L501.6100 21.0-3 mmol/L Normal 2.0 CO2 29.0 LAB L501.6200 5-15 Normal GAP 8 Performed By: #### L500.2500 #### [facility] [address] [place], [place], [address] ALLERGIES ALLERGIES DATE TYPE / CODE NAME / CODE REACTION SEVERITY SOURCE 12/22/2017 Drug No Known Unknown [facility] Allergy/416 Allergies/I73717 Hospital 524808(SNOM 0388(RXNORM) Repository ED CT) Drug NO KNOWN [facility] Class/84655 ALLERGIES Other [place] 1003(SNOMED Repository CT) ENCOUNTERS ENCOUNTERS ADMIT/DISCHARGE ACCOUNT NUMBER ADMITTING ENCOUNTER LOCATION SOURCE CLASS 01/07/2018 [id number] Ambulatory BMSBuilding: [place] BMS.[facility] Repository 01/06/2018 [id number] Ambulatory BMSBuilding: [place] [facility] Repository 01/06/2018/01/08/20 [id number] Ambulatory [address] ding:CLSPRoo Repository m: [id number] 12/22/2017/12/23/19 [id number] Ambulatory BMSBuilding: [place] 18 BMS.[facility] Repository 12/02/2017/12/03/19 [id number] Emergency [address] Other [place] Repository 11/25/2017/11/26/19 [id number] Ambulatory BMSBuilding: [place] 18 BMS.[facility] Repository 11/24/2017 [id number] Ambulatory BMSBuilding: [place] BMS.[facility] Repository 11/03/2017/11/05/19 [id number] [place], Ambulatory [address] ding:PCURoom Repository : [id number]: 1 11/03/2017 [id number] [place], Ambulatory BMSBuilding: [place] BMS.[facility] Repository 11/03/2017 [id number] [place], Ambulatory BMSBuilding: [place] BMS.CF.[facility] Repository 11/03/2017 [id number] [place], Ambulatory BMSBuilding: [place] [facility] Repository 11/03/2017 [id number] [place], Ambulatory BMSBuilding: [place] BMS.[facility] Repository 10/24/2017/10/25/19 [id number] Emergency [address] ding:ED Repository 10/13/2017/10/14/19 [id number] [place], Ambulatory [address] ding:VB4Ibyz Repository : [id number]: 1 10/13/2017 [id number] [place], Ambulatory BMSBuilding[facility] 10/10/2017 [id number] Emergency [address] [place] [address] ERRoom: System [id number]: Repository [id number] 10/06/2017/10/07/19 [id number] Ambulatory [place] 18 [facility] ding:ACRoom: Repository AC14 PAYERS PAYERS ENCOUNTER GUARANTOR PAYER SUBSCRIBER SOURCE 01/07/2018 TESFAYE C Primary NOT GIVENUNK [place] Insurance:SELF PAY [facility] [place], [place] Number: Effective Repository [phone]: (330) Date:2018-01-07 [id number] (HP) 01/06/2018 TESAFYE C Primary NOT GIVENUNK [place] Insurance:SELF PAY [facility] [place], [place] Number: Effective Repository [id number]: (330) Date:2018-01-06 [id number] (HP) 01/06/2018 TESFAYE C Primary NOT GIVENUNK [place] Insurance:SELF PAY [facility] [place], [place] Number: Effective Repository [phone]: (330) Date:2017-11-25 [id number] (HP) 12/22/2017 TESFAYE C Primary NOT GIVENUNK [place] Insurance:SELF PAY [facility] [place] Number: Effective Repository [phone]: (330) Date:2017-12-22 [id number] (HP) 11/25/2017 TESFAYE C Primary NOT GIVENUNK [place] Insurance:SELF PAY [facility] [place] Number: Effective Repository [phone]: (330) Date:2017-11-25 [id number] (HP) 11/24/2017 TESFAYE C Primary NOT GIVENUNK [place] Insurance:SELF PAY [facility] [place] Number: Effective Repository [phone]: (330) Date:2017-11-24 [id number] (HP) 11/03/2017 TESFAYE Valentin Primary NOT GIVENUNK [place] Insurance:SELF PAY [facility] [facility] [place] Number: Effective Repository [phone]: (330) Date:2017-11-03 [id number] (HP) 11/03/2017 TESFAYE TORRES Primary NOT GIVENUNK [place] [id number] Insurance:SELF PAY [facility] Number: Effective Repository [phone]: (330) Date:2017-11-03 [id number] (HP) 11/03/2017 TESFAYE TORRES Primary NOT GIVENUNK [place] [id number] Insurance:SELF [place]Y [facility] Number: Effective Repository [phone]: (330) Date:2017-11-03 [id number] (HP) 11/03/2017 TESFAYE Valentin Primary NOT GIVENUNK [place] KRAHEN[place] Insurance:SELF PAY [facility] [facility] [place] Number: Effective Repository [phone]: (330) Date:2017-11-03 [id number] (HP) 11/03/2017 TESFAYE Valentin Primary NOT GIVENUNK [place] Insurance:SELF PAY [facility] [facility] [place] Number: Effective Repository [phone]: (330) Date:2017-11-03 [id number] (HP) 10/24/2017 TESFAYE TORRES Primary NOT GIVENUNK [place] [id number] Insurance:SELF PAY [facility] Number: Effective Repository [phone]: (330) Date:2017-10-24 [id number] (HP) 10/13/2017 Tesfaye Torres Primary NOT GIVENUNK [place] [id number] Insurance:SELF PAY [facility] Number: Effective Repository [phone]: (330) Date:2017-10-12 [id number] (HP) 10/13/2017 Tesfaye Torres Primary NOT GIVENUNK [place] [id number] Insurance:SELF PAY [facility] Number: Effective Repository [phone]: (330) Date:2017-10-13 [id number] (HP) 10/10/2017 Tesfaye Nathan [id number] [facility] Number: [id number] Repository Stephanie Effective Date: [place], [place] [address]Vlw: () 10/06/2017 Tesfaye Holland [id number] Insurance:SELF PAY [place] Number: Effective Repository [phone]: (330) Date:2017-10-06 [id number] ()
== END 2018-01-07 09:37 | disposition home or self-care (01) ==
LOC: CLSP 08:02 → ICU 01-07 07:50
PROVIDERS: Internal Medicine Cardiovascular Disease; Referring Provider Internal Medicine Cardiovascular Disease; Visit Provider Internal Medicine Cardiovascular Disease
DX: I25.110 Atherosclerotic heart disease of native coronary artery with unstable angina pectoris (principal); I10 Essential (primary) hypertension; E11.9 Type 2 diabetes mellitus without complications; F17.200 Nicotine dependence, unspecified, uncomplicated; Z79.82 Long term (current) use of aspirin; Z79.84 Long term (current) use of oral hypoglycemic drugs; Z79.51 Long term (current) use of inhaled steroids; Z79.899 Other long term (current) drug therapy
CPT/HCPCS: 36415; 80048; 80061; 82962; 85027; 85347; 85610; 85730; 92928; 93005; J0153; J7030; J7040; A4216; C1725; C1769; C1874; C1887; C1894; C9600; J2405; Q9967

== ENCOUNTER 2023-03-24 15:40 | Emergency (ER) | payer MEDICAID, SELFPAY ==
[2023-03-24 15:41] VITALS: BP 161/103; PULSE 93; RESP 16; TEMP 36.4; BMI 24.1
[2023-03-24 15:44] VITALS: BP 161/103; PULSE 93; RESP 16; TEMP 36.4
--- NOTE | 2023-03-24 15:44 | EDS_ITS ---
HPI History of Present Illness Chief Complaint: Rash [facility] Medical History (Updated 03/24/23 @ 15:[address] Jair Bell, DO) Atherosclerotic heart disease of [place] coronary artery without angina pectoris Chest pain Penile swelling Tobacco use Type 2 diabetes mellitus Unstable angina pectoris Home Medications amlodipine 5 mg tablet (Norvasc) 5 mg PO DAILY #30 tabs 03/24/23 [Rx Last Taken Unknown] amlodipine 5 mg tablet (Norvasc) 5 mg PO DAILY #30 tabs 03/24/23 [Rx Last Taken Unknown] clopidogrel 75 mg tablet (Plavix) 75 mg PO DAILY #30 tabs 03/24/23 [Rx Last Taken Unknown] clopidogrel 75 mg tablet (Plavix) 75 mg PO DAILY #30 tabs 03/24/23 [Rx Last Taken Unknown] metoprolol tartrate 25 mg tablet 25 mg PO BID #60 tabs 03/24/23 [Rx Last Taken Unknown] metoprolol tartrate 25 mg tablet 25 mg PO BID #60 tabs 03/24/23 [Rx Last Taken Unknown] valacyclovir 1 gram tablet 1,000 mg PO TID #30 tabs 03/24/23 [Rx Last Taken Unknown] valacyclovir 1 gram tablet (Valtrex) 1,000 mg PO TID 10 days #30 tabs 03/24/23 [Rx Last Taken Unknown] Allergy/AdvReac Type Severity Reaction Status Date / Time No Known Allergies Allergy Verified 03/24/23 15:40 Family History Mother Heart disease Father Cancer Surgical History History of appendectomy penile surgery Stented coronary artery (01/06/18) Social History (Updated 03/24/23 @ 15:54 by Elena Reyes) household members: none housing: house Smoking Status: Current every day smoker tobacco type: cigarettes alcohol intake: current details: rare substance use type: does not use EXAM Physical Exam Const Vital Signs: 03/24/23 15:41 03/24/23 15:44 03/24/23 16:13 Temperature 97.5 F L 97.5 F L 97.3 F L Temperature Source Temporal Temporal Pulse Rate 93 93 89 Respiratory Rate 16 16 16 Blood Pressure 161/103 H 161/103 H 155/107 H Blood Pressure Mean 122 122 123 Pulse Ox 100 MDM [facility] Narrative Medical decision making narrative: HISTORY OF PRESENT ILLNESS: 57-year-old male presents with rash. States he broke out with shingles 3 weeks ago was not treated . States he has increasing pain. Patient also endorses he is out of his home blood pressure medicine. He states he has not taken these for years. REVIEW OF SYSTEMS: Pertinent positives: Rash Pertinent negatives: Fever, headache, neck stiffness. PHYSICAL EXAM: Nursing triage notes reviewed, Vital signs reviewed Constitutional: please see mdm HENT: MMM Eyes: Pupils equal round and reactive to light, Extraocular muscles intact Neck: No stridor, no JVD, full neck ROM Lungs: Clear to auscultation, No wheezing or rales. No increased work of breathing, no conversational dyspnea, no accessory muscle use, no nasal flaring. No respiratory distress noted Heart: Regular rate and rhythm, No murmurs, No rubs and No gallops, 2+ distal pulses (radial, femoral, posterior tibial) in all extremities Abdomen: Soft, there is no tenderness, rigidity, rebound or guarding, no obvious peritoneal signs, no palpable pulsatile abdominal masses, no auscultated abdominal bruit : No CVAT Extremities: No edema Neuro: No focal neurological deficits, cranial nerves II through XII intact, 5/5 strength in all extremities. Intact sensation to light touch in all extremities, 2+ reflexes bilateral patella tendons. Normal gait. No ataxia. Skin: Resolving erythematous rash noted 1 normal total distribution of the left flank wrapping around to the trunk. This is consistent with likely shingles MEDICAL DECISION MAKING: Chief Complaint: Concern for shingles External records reviewed: Factors affecting care: none CAD, type 2 diabetes, Social determinants of health: Poor access to care, indigent History obtained from others: none Consults: none [facility] Narrative: Patient was hemodynamically stable, afebrile, nontoxic-appearing. Exam with resolving shingles rash. No signs of cellulitis, necrotizing fasciitis. Will give valacyclovir for further antiviral effect. Prescribed Plavix, metoprolol and Norvasc. Attempted to talk to our social work department about helping the patient fill his medications as he is concerned about the cost. Attempted to fill the medicines through our meds to beds program. Provided patient with outpatient resources to secure prescriptions at a lower cost. The patient and/or family, caregivers express understanding. The patient and/or family, caregivers agrees with the plan. Shared decision making: I will have a discussion with the patient and or visitors regarding risk/demetrice efits of further testing or admission. They will be made aware of of the risk/benefits inherent in this decision they will be given the opportunity to voice understanding. Total critical care time today provided was at least 0 minutes. This excludes separately billable procedures. Critical care time (if documented) is secondary to the patient having high probability of clinically significant/life threatening deterioration in the patient's condition which required my urgent intervention. Impression: 1. Herpes zoster Dispo: Discharge This note was generated with [employer] dictation software. It may contain incorrect words, spelling, and punctuation that were not noted in review of the chart prior to signing. Discharge Plan Triage Chief Complaint: Rash ED Provider: Jair Bell Dx/Rx/DC Orders Clinical Impression: Shingles Instructions: ED Shingles (Herpes Zoster) Prescriptions: New valacyclovir [Valtrex] 1 gram tablet 1,000 mg PO TID 10 Days Qty: 30 0RF amlodipine [Norvasc] 5 mg tablet 5 mg PO DAILY Qty: 30 0RF metoprolol tartrate 25 mg tablet 25 mg PO BID Qty: 60 0RF clopidogrel [Plavix] 75 mg tablet 75 mg PO DAILY Qty: 30 0RF metoprolol tartrate 25 mg tablet 25 mg PO BID Qty: 60 3RF clopidogrel [Plavix] 75 mg tablet 75 mg PO DAILY Qty: 30 3RF valacyclovir 1 gram tablet 1,000 mg PO TID Qty: 30 3RF amlodipine [Norvasc] 5 mg tablet 5 mg PO DAILY Qty: 30 3RF Primary Care Provider: Care Physician,No Primary Referrals: Davon Heart MD [Med Staff - State Assessed Properties Director] - Activity Restrictions/Additional Instructions: Thank you for trusting us with your care today! Please take Tylenol (2 pills, 650 mg), ibuprofen (2 pills, 400 mg) every 6 hours as needed for pain and fever control. Please take valacyclovir as prescribed. Please return to the emergency department if your symptoms change or worsen. Please follow with your primary care physician for further outpatient evaluation and management. Please follow-up with [facility] at [address] [place] [id number] 9 AM to 4:30 PM Wednesday through Wednesday Phone number is [phone] Disposition Disposition: Home, Self Care Discharge Date/Time: 03/24/23 16:32
[2023-03-24] MEDS: Acyclovir 800 MG Tablet PO (16:11)
[2023-03-24 16:13] VITALS: BP 155/107; PULSE 89; RESP 16; TEMP 36.3; O2SAT 100
--- OUTSIDE RECORDS SUMMARY | 2023-03-24 19:11 | XMS RPT_ITS | CCD ---
Author Name Unknown Address [address] [place] [id number] Organization [facility] Care Team Providers Care Special Education Inclusion Teacher Name Role Phone Wayne Whitt Unavailable Unavailable PROVIDER, UNKNOWN Unavailable Unavailable No, PCP Unavailable Unavailable [facility] Unavailable Unavailabl e Problems Problem Classification Problem Date Documented Da te Episodic/Chronic Coronary atherosclerosis and other heart disease (1 source) Angina pectoris, unspecified; Translations: [Angina pectoris, unspecified] Onset: 12-02-2017 Chronic Other male genital disorders (2 sources) Other specified disorders of penis; Translations: [Other specified disorders of penis] Onset: 10-10-2017 Chronic Substance-related disorders (2 sources) Nicotine dependence, cigarettes, uncomplicated; Translations: [Nicotine dependence, cigarettes, uncomplicated] Onset: 10-10-2017 Chronic Unclassified (2 sources) Other specified disorders of the male genital organs; Translations: [Other specified disorders of the male genital organs] Onset: 10-10-2017 Results Test Name Value Interpretation Reference Range Facil ity Encounters Encounter Date Encounter Type Care Provider Facility Start: 12-02-2017 End: 12-02-2017 Emergency department patient visit [facility] Start: 10-10-2017 Emergency department patient visit Wayne Whitt [facility] Payers Date Payer Category Payer Policy ID Self-pay Summary Purpose Family History No Family History Records FoundNo Family History Records FoundNo Family History Records Found Advance Directives No Advanced Directives Records FoundNo Advanced Directives Records FoundNo Advanced Directives Records Found Additional Source Comments (unrecognized sect ion and content) No Status Records FoundNo Status Records FoundNo Status Records Found INFORMATION SOURCE (unrecogn ized section and content) DATE CREATED AUTHOR AUTHOR'S ORGANIZ ATION 12/30/2017 [facility] DATE CREATED AUTHOR AUTHOR'S ORGANIZ ATION 01/19/2020 [facility] FOR RECORDS PERTAINING TO PATIENTS WHO ARE OR HAVE BEEN ENROLLED IN A CHEMICAL DEPENDENCY/SUBSTANCEABUSE PROGRAM, SOME INFORMATION MAY BE OMITTED. This clinical summary was aggregated from multiple sources. Caution should be exercised in using it in the provision of clinical care. This summary normalizes information from multiple sources, and as a consequence, information in this document may materially change the coding, format and clinical context of patient data. In addition, data may be omitted in some cases. CLINICAL DECISIONS SHOULD BE BASED ON THE PRIMARY CLINICAL RECORDS. [facility] [employer] [facility]. provides no warranty or guarantee of the accuracy or completeness of information in this document.
== END 2023-03-24 16:32 | disposition home or self-care (01) ==
LOC: ED 16:01
PROVIDERS: Emergency Provider Emergency Medicine; Visit Provider Emergency Medicine
DX: B02.9 Zoster without complications (principal); E11.9 Type 2 diabetes mellitus without complications; I25.10 Atherosclerotic heart disease of native coronary artery without angina pectoris; F17.210 Nicotine dependence, cigarettes, uncomplicated; Z95.5 Presence of coronary angioplasty implant and graft
CPT/HCPCS: 99282

== ENCOUNTER 2023-03-29 22:15 | Emergency (ER) | payer MEDICAID, SELFPAY ==
[2023-03-29 22:16] VITALS: BP 141/105; PULSE 113; RESP 18; TEMP 36.5; O2SAT 100; BMI 24.0
--- NOTE | 2023-03-29 22:24 | EKG12_ITS ---
Test Reason : CP Blood Pressure : / mmHG Vent. Rate : 112 BPM Atrial Rate : 112 BPM P-R Int : 128 ms QRS Dur : 086 ms QT Int : 326 ms P-R-T Axes : 077 081 069 degrees QTc Int : 444 ms Sinus tachycardia Otherwise normal ECG Confirmed by HEATHER GRIGSBY, ASHLEY ([id number]), science editor DORIS MITCHELL ([id number]) on 03/30/2023 9:45:51 AM Referred By: NONI Confirmed By:ASHLEY ROMERO MD
[2023-03-29 22:30] VITALS: BP 134/120; PULSE 113; RESP 19; O2SAT 100
[2023-03-29 22:32] VITALS: O2SAT 100
--- NOTE | 2023-03-29 22:32 | RAD_ITS ---
INDICATION: chest pain EXAMINATION/TECHNIQUE: X-RAY - XR Chest 1 View COMPARISON: 11/03/2017. FINDINGS: LINES/DEVICES: None. LUNGS: No consolidation or evidence of an effusion. No evidence of edema or a pneumothorax. Stable mild hyperinflation of the lungs which may represent COPD. MEDIASTINUM AND CARDIOVASCULAR STRUCTURES: Cardiac silhouette is normal in size and contour. Mediastinum is unremarkable. BONES AND SOFT TISSUES: No acute abnormality. Chronic bilateral rib fractures. Stable calcifications overlying the proximal left humerus. RAD/Chest 1 View (Portable) IMPRESSION: No evidence of acute cardiopulmonary disease. Electronically Signed: Kermit Wallace DO at 23:10 EST ,
[2023-03-29 22:40] LABS: Absolute Lymphocyte Count 4.16 X10^3/uL (0.83-4.51); Absolute Neutrophil Count 7.4 X10^3/uL (2.0-7.7); Basophil# 0.14 X10^3/uL; Basophil% 1.1 % (0-1); Eosinophil# 0.43 X10^3/uL; Eosinophils% 3.3 % (0-5); Hematocrit 50.7 % (40-54); Hemoglobin 16.9 g/dL (13.0-16.5); Lymphocyte # 4.16 X10^3/ul (0.83-4.51); Lymphocyte % 31.5 % (19-41); Mean Corp Hgb Conc 33.3 g/dL (32-36); Mean Corpuscular Hgb 31.6 pg (27.0-32.0); Mean Corpuscular Volume 94.9 fL (80-94); Monocyte# 0.98 X10^3/uL; Monocyte% 7.4 % (0-10); NRBC Flagged by Analyzer 0 % (0-5); Neutrophil # 7.39 X10^3/uL (2.7-7.7); Platelet Count 358 K/mm3 (150-450); RBC Distribution Width SD 41.1 fl (35.1-43.9); Red Blood Count 5.34 M/mm3 (4.6-6.2); White Blood Count 13.2 K/mm3 (4.4-11.0)
--- OUTSIDE RECORDS SUMMARY | 2023-03-29 22:40 | XMS RPT_ITS | CCD ---
Author Name Unknown Address [address] [place] [id number] Organization [facility] Care Team Providers Care It Intern Name Role Phone Wayne Whitt Unavailable Unavailable [...] 12-02-2017 Emergency department patient visit [facility] Start: 10-10-2017 Emergency department patient visit Wayne Whitt [facility] Payers Date Payer Category Payer [...] DATE CREATED AUTHOR AUTHOR'S ORGANIZ ATION 12/30/2017 [facility] DATE CREATED AUTHOR AUTHOR'S ORGANIZ ATION 01/19/2020 [facility] FOR RECORDS PERTAINING TO PATIENTS [...] BE BASED ON THE PRIMARY CLINICAL RECORDS. [facility]. provides no warranty or guarantee of the accuracy or completeness of information in this document.
[2023-03-29 22:51] LABS: D-Dimer Quantitative (DVT/PE) 0.31 FEU/ug/m (0.27-0.49)
[2023-03-29 22:58] LABS: Anion Gap 4 (5-15); BUN 16 mg/dL (7-18); BUN/Creat Ratio 12.3 RATIO (10-20); Calcium,Total 9.4 mg/dL (8.5-10.1); Chloride 104 mmol/L (98-107); EST Glomerular Filtration Rate 60 mL/min (>60); Est Glom Filt Rate - Afr Amer 73 mL/min (>60); Estimated Creatinine Clearance 63.95 ml/min; Glucose 110 mg/dL (74-106); Potassium 4.1 mmol/L (3.5-5.1); Sodium Level 138 mmol/L (136-145); Troponin-I HS 7 pg/mL (3.0-78.0)
--- NOTE | 2023-03-29 23:19 | ED.VIS.CHEST ---
HPI History of Present Illness Chief Complaint: Chest Pain Narrative Narrative: 57-year-old male presenting with chest pain. He states he had it for months. The same as it has been. Has not changed. It is left-sided. Denies lightheadedness, dizziness, shortness of breath, cough, fever. Patient states he has history of CO and cardiac stents. Used to Dr. Perez. After he had his CO he states he never followed up. Has been out of medications until recently evaluated for shingles and his medications were refilled although he states he lost his Plavix. [facility] Medical History Atherosclerotic heart disease of [place] coronary artery without angina pectoris Chest pain Penile swelling Tobacco use Type 2 diabetes mellitus Unstable angina pectoris Home Medications amlodipine 5 mg tablet (Norvasc) 5 mg PO DAILY #30 tabs 03/24/23 [Rx Last Taken Unknown] amlodipine 5 mg tablet (Norvasc) 5 mg PO DAILY #30 tabs 03/24/23 [Rx Last Taken Unknown] clopidogrel 75 mg tablet (Plavix) 75 mg PO DAILY #30 tabs 03/24/23 [Rx Last Taken Unknown] clopidogrel 75 mg tablet (Plavix) 75 mg PO DAILY #30 tabs 03/24/23 [Rx Last Taken Unknown] metoprolol tartrate 25 mg tablet 25 mg PO BID #60 tabs 03/24/23 [Rx Last Taken Unknown] metoprolol tartrate 25 mg tablet 25 mg PO BID #60 tabs 03/24/23 [Rx Last Taken Unknown] valacyclovir 1 gram tablet 1,000 mg PO TID #30 tabs 03/24/23 [Rx Last Taken Unknown] valacyclovir 1 gram tablet (Valtrex) 1,000 mg PO TID 10 days #30 tabs 03/24/23 [Rx Last Taken Unknown] clopidogrel 75 mg tablet (Plavix) 75 mg PO DAILY #30 tabs 03/29/23 [Rx Last Taken Unknown] Allergy/AdvReac Type Severity Reaction Status Date / Time No Known Allergies Allergy Verified 03/29/23 22:16 Family History Mother Heart disease Father Cancer Surgical History History of appendectomy penile surgery Stented coronary artery (01/06/18) Social History household members: none housing: house Smoking Status: Current every day smoker tobacco type: cigarettes alcohol intake: current details: rare substance use type: does not use ROS ROS ED Constitutional Constitutional ED: Denies chills, fever(s) or sweats Eyes Eyes: Denies blurry vision or change in vision ENT ENT ED: Denies ear pain or sore throat Cardiovascular Cardiovascular: Reports chest pain; Denies palpitations or racing heartbeat Respiratory/Chest Respiratory/Chest: Denies cough, dyspnea or sputum Gastrointestinal Gastrointestinal: Denies abdominal pain, constipation, diarrhea, nausea or vomiting Genitourinary Genitourinary ED: Denies dysuria, hematuria or urinary frequency Musculoskeletal Musculoskeletal: Denies arthralgias, myalgias or neck pain Integumentary Denies abscess, Abrasions or rash Neurologic Neurologic: Denies headache(s), paresthesias or weakness Psychiatric Psychiatric: Denies anxiety, depression, suicidal ideation or suicidal thoughts Endocrine Endocrinology: Denies polydipsia or polyuria EXAM Physical Exam Const Vital Signs: 03/29/23 22:16 03/29/23 22:30 03/29/23 22:32 Temperature 97.7 F L Temperature Source Temporal Pulse Rate 113 H 113 H Respiratory Rate 18 19 H Blood Pressure 141/105 H 134/120 H Blood Pressure Mean 117 124 Pulse Ox 100 100 100 Oxygen Delivery Method Room Air Room Air Room Air Positive well nourished General Appearance ED: NAD; Negative for pallor HEENT Reports moist mucous membranes normocephalic and atraumatic Eyes PERRL and EOMs intact bilaterally Chest Wall inspection of chest normal Resp normal respiratory effort and clear to auscultation bilaterally Cardio regular rhythm Rate: tachycardic Extremity normal to inspection Neuro oriented x3 and CN's II-XII intact bilaterally Sensorium / Orientation: awake and alert Skin no rashes or lesions noted General Skin Exam: Negative for jaundice or pallor MDM MDM MDM Narrative Medical decision making narrative: 57-year-old male with history of cardiac disease presenting with chest pain. Has been feeling this for a few months. It has not changed. He has no other associated symptoms with it. Recently seen for shingles and and all of his medications were reordered for him as he has been out of them. Inferential includes ACS, pneumonia, PE, pneumothorax, costochondritis, CHF. CBC was obtained to assess for blood cell count, hemoglobin, platelets. BMP to assess renal function, electrolytes. High-sensitivity troponin EKG/ischemia/rhythm. Chest x-ray to rule out pneumonia or CHF. CBC shows mild leukocytosis 13.2. Hemoglobin concentrated at 16.9. Platelets are normal at 358. D-dimer negative at 0.31. Renal function electrolytes within normal limits. High-sensitivity troponin is 7. EKG on my interpretation shows sinus tachycardia rate of 112 bpm without sign of ischemic change. Chest x-ray my interpretation shows no acute process. The radiologist interpretation agrees. At this point patient's workup is negative I do not believe needs further lab work or imaging. He did request a refill of his Plavix which was ordered for him. He was sent to his pharmacy. Return precautions were discussed. Impression: 1. Chest pain Lab Data Labs: Laboratory Results - last 24 hr 03/29/23 22:25 WBC 13.2 H RBC 5.34 Hgb 16.9 H Hct 50.7 MCV 94.9 H MCH 31.6 MCHC 33.3 RDW Std Deviation 41.1 RDW Coeff of Gaurav 12.0 Plt Count 358 MPV 9.0 Immature Gran % (Auto) 0.700 Neut % (Auto) 56.0 Lymph % (Auto) 31.5 Phillips % (Auto) 7.4 Eos % (Auto) 3.3 Baso % (Auto) 1.1 H Absolute Neuts (auto) 7.4 Absolute Lymphs (auto) 4.16 Nucleated RBC % 0 D-Dimer Quant (PE/DVT) 0.31 Sodium 138 Potassium 4.1 Chloride 104 Carbon Dioxide 30.0 Anion Gap 4 L BUN 16 Creatinine 1.30 Estim Creat Clear Calc 63.95 Est GFR (MDRD) Af Amer 73 Est GFR (MDRD) Non-Af 60 BUN/Creatinine Ratio 12.3 Glucose 110 H Calcium 9.4 Troponin I High Sens 7 Radiography Diagnostic Testing: Clinical Impression(s) from Imaging Studies Chest X-Ray 03/29/23 22:32 IMPRESSION: No evidence of acute cardiopulmonary disease. Electronically Signed: Kermit Wallace DO at 23:10 EST , Discharge Plan Triage Chief Complaint: Chest Pain ED Provider: Dimitry Pozo Dx/Rx/DC Orders Instructions: ED Chest Pain, Noncardiac Prescriptions: New clopidogrel [Plavix] 75 mg tablet 75 mg PO DAILY Qty: 30 0RF No Action valacyclovir [Valtrex] 1 gram tablet 1,000 mg PO TID 10 Days Qty: 30 0RF amlodipine [Norvasc] 5 mg tablet 5 mg PO DAILY Qty: 30 0RF metoprolol tartrate 25 mg tablet 25 mg PO BID Qty: 60 0RF clopidogrel [Plavix] 75 mg tablet 75 mg PO DAILY Qty: 30 0RF metoprolol tartrate 25 mg tablet 25 mg PO BID Qty: 60 3RF clopidogrel [Plavix] 75 mg tablet 75 mg PO DAILY Qty: 30 3RF valacyclovir 1 gram tablet 1,000 mg PO TID Qty: 30 3RF amlodipine [Norvasc] 5 mg tablet 5 mg PO DAILY Qty: 30 3RF Primary Care Provider: Care Physician,No Primary Referrals: Atilio Richardson MD [Med Staff - Active Staff] - As soon as possible Care Physician,No Primary [Primary Care Provider] - Disposition Disposition: Home, Self Care
[2023-03-29 23:25] VITALS: BP 156/96; PULSE 92; RESP 12; TEMP 36.3; O2SAT 99
== END 2023-03-29 23:26 | disposition home or self-care (01) ==
PROVIDERS: Emergency Provider Student in an Organized Health Care Education/Training Program; Visit Provider Student in an Organized Health Care Education/Training Program
DX: R07.9 Chest pain, unspecified (principal); E11.9 Type 2 diabetes mellitus without complications; I25.2 Old myocardial infarction; F17.210 Nicotine dependence, cigarettes, uncomplicated; I25.10 Atherosclerotic heart disease of native coronary artery without angina pectoris; Z95.5 Presence of coronary angioplasty implant and graft
CPT/HCPCS: 71045; 80048; 84484; 85025; 85379; 93005; 99283; A4216

== ENCOUNTER 2023-06-03 08:34 | Emergency (ER) | payer MEDICAID, SELFPAY ==
[2023-06-03] VITALS (9 sets, daily range): BP systolic 135–165; BP diastolic 80–110; PULSE 82–101; RESP 16–20; TEMP 36.2–36.6; O2SAT 96–100; BMI 25.4
--- NOTE | 2023-06-03 08:55 | EKG12_ITS ---
Test Reason : CP Blood Pressure : / mmHG Vent. Rate : 095 BPM Atrial Rate : 095 BPM P-R Int : 122 ms QRS Dur : 082 ms QT Int : 358 ms P-R-T Axes : 038 073 067 degrees QTc Int : 449 ms Normal sinus rhythm Normal ECG Confirmed by JULIO GRIGSBY, BRIT ([id number]), sound editor REMBERTO MONTERO ([id number]) on 06/07/2023 10:28:58 AM Referred By: KALPESH Confirmed By:DEB KIM MD
--- NOTE | 2023-06-03 08:55 | RAD_ITS ---
STUDY: X-RAY CHEST REASON FOR EXAM: Male, 57 years old. Chest pain TECHNIQUE: Single AP portable view of the chest. COMPARISON: Comparison is made with prior study dated March 29, 2023. FINDINGS: EKG electrodes are seen. The lungs are clear and expanded. There is no demonstrated pleural abnormality. Normal size heart. Normal mediastinum and carmina. Normal visualized pulmonary arteries. Normal visualized aortic arch and descending thoracic aorta. Normal visualized thoracic spine. There is degenerative osteoarthritis of the bilateral shoulders. There is no demonstrated abnormality of the visualized soft tissue structures of the upper abdomen. RAD/Chest 1 View (Portable) IMPRESSION: No acute abnormality is seen. Electronically Signed: Mati Alvarez MD at 9:39 EDT ,
--- NOTE | 2023-06-03 08:56 | ED.VIS.CHEST ---
HPI History of Present Illness Chief Complaint: Chest Pain Informant: patient and EMS Narrative Narrative: 57-year-old male presenting to the emergency room with a chief complaint of chest pain. Patient called EMS this morning and prehospital EKG showed a normal sinus rhythm in the 90s without concerning ST changes. He states that he woke around 0400 hrs. with a midsternal heaviness that radiates up into his neck. He states he also feels it in his back. States when he takes a deep breath the pain catches him from taking a full breath. Denies any abdominal or leg symptoms. He reports that he took 3 nitroglycerin which she states are several years old. He also took aspirin unknown milligram amount but states that they looked bigger than the normal baby aspirin's. Patient has had prior coronary artery stenting he states about 7 years ago. He reports that he was discharged from the hospital and he threw out his medications. Then 1 month ago he was seen in the emergency department for chest pain. He was given refills of his medication which she states he has been taking. He continues to smoke. He denies any diagnosed lung conditions. [facility] Medical History Atherosclerotic heart disease of [place] coronary artery without angina pectoris Chest pain Penile swelling Tobacco use Type 2 diabetes mellitus Unstable angina pectoris Home Medications amlodipine 5 mg tablet (Norvasc) 5 mg PO DAILY #30 tabs 03/24/23 [Rx Last Taken Unknown] amlodipine 5 mg tablet (Norvasc) 5 mg PO DAILY #30 tabs 03/24/23 [Rx Last Taken Unknown] clopidogrel 75 mg tablet (Plavix) 75 mg PO DAILY #30 tabs 03/24/23 [Rx Last Taken Unknown] clopidogrel 75 mg tablet (Plavix) 75 mg PO DAILY #30 tabs 03/24/23 [Rx Last Taken Unknown] metoprolol tartrate 25 mg tablet 25 mg PO BID #60 tabs 03/24/23 [Rx Last Taken Unknown] metoprolol tartrate 25 mg tablet 25 mg PO BID #60 tabs 03/24/23 [Rx Last Taken Unknown] valacyclovir 1 gram tablet 1,000 mg PO TID #30 tabs 03/24/23 [Rx Last Taken Unknown] valacyclovir 1 gram tablet (Valtrex) 1,000 mg PO TID 10 days #30 tabs 03/24/23 [Rx Last Taken Unknown] clopidogrel 75 mg tablet (Plavix) 75 mg PO DAILY #30 tabs 03/29/23 [Rx Last Taken Unknown] diazepam 5 mg tablet 5 mg PO Q8 PRN Muscle Spasm #15 tabs 06/03/23 [Rx Last Taken Unknown] oxycodone-acetaminophen 5 mg-325 mg tablet 1 tab PO Q6H PRN PRN Pain 3 days #12 TABLETS 06/03/23 [Rx Last Taken Unknown] Allergy/AdvReac Type Severity Reaction Status Date / Time No Known Allergies Allergy Verified 06/03/23 08:38 Family History Mother Heart disease Father Cancer Surgical History History of appendectomy penile surgery Stented coronary artery (01/06/18) Social History household members: none housing: house Smoking Status: Current every day smoker tobacco type: cigarettes alcohol intake: current details: rare substance use type: does not use ROS ROS ED Constitutional Constitutional ED: Denies chills, fever(s) or weight loss Eyes Eyes: Denies change in vision or diplopia ENT ENT ED: Denies ear pain, rhinorrhea or sore throat Cardiovascular Cardiovascular: Reports chest pain; Denies orthopnea, palpitations or racing heartbeat Respiratory/Chest Respiratory/Chest: Reports cough, dyspnea and other Details: Chronic cough from smoking no change ; Denies orthopnea Gastrointestinal Gastrointestinal: Denies abdominal pain, diarrhea, nausea or vomiting Genitourinary Genitourinary ED: Denies dysuria, hematuria or urinary frequency Musculoskeletal Musculoskeletal: Reports back pain; Denies arthralgias, myalgias or neck pain Integumentary Denies abscess or rash Neurologic Neurologic: Denies headache(s) or weakness Psychiatric Psychiatric: Denies anxiety, depression, suicidal ideation or suicidal thoughts Endocrine Endocrinology: Denies polydipsia, polyphagia or polyuria Allergic/Immunologic Allergic/Immunologic ED: Denies mouth swelling, tongue swelling or urticaria EXAM Physical Exam Narrative Exam Narrative: Patient appears uncomfortable in bed. Const Vital Signs: 06/03/23 08:35 06/03/23 09:30 06/03/23 09:58 Temperature 97.9 F Temperature Source Temporal Pulse Rate 96 89 90 Respiratory Rate 20 H 18 20 H Blood Pressure 165/102 H 138/95 H 135/97 H Blood Pressure Mean 123 107 109 Pulse Ox 100 99 98 Oxygen Delivery Method Room Air Room Air 06/03/23 10:00 06/03/23 11:00 06/03/23 12:00 Temperature Temperature Source Pulse Rate 90 82 90 Respiratory Rate 20 H 16 20 H Blood Pressure 135/97 H 143/88 H 157/110 H Blood Pressure Mean 109 106 125 Pulse Ox 97 98 98 Oxygen Delivery Method Room Air Room Air Room Air 06/03/23 13:00 06/03/23 14:00 Temperature Temperature Source Pulse Rate 96 101 H Respiratory Rate 20 H 20 H Blood Pressure 138/103 H 141/97 H Blood Pressure Mean 114 111 Pulse Ox 96 97 Oxygen Delivery Method Room Air Room Air Positive well nourished and well developed General Appearance ED: well developed HEENT Reports normocephalic, head/scalp atraumatic and moist mucous membranes Eyes PERRL and EOMs intact bilaterally Neck no lymphadenopathy, supple and no JVD Resp normal respiratory effort and clear to auscultation bilaterally Cardio regular rate, regular rhythm and no murmurs GI normal to inspection, nondistended, normoactive bowel sounds and non-tender Palpation: soft Back/Spine no CVA tenderness and normal ROM Extremity normal to inspection General Extremety ED: Negative for edema General Extremity: Negative for edema Neuro oriented x3 and CN's II-XII intact bilaterally Sensorium / Orientation: alert Motor Exam: strength 5/5 throughout Psych mental status grossly normal Mood & Affect: Negative for depressed or tearful Skin no rashes or lesions noted and no wounds MDM MDM MDM Narrative Medical decision making narrative: Initial EKG shows a normal sinus rhythm with a ventricular rate of 95 bpm. No significant change from the prehospital EKG or from prior dated 29 March 2023. 2 sets of cardiac enzymes are normal at 6. My independent interpretation of the chest x-ray is no acute process. BMP with a glucose of 98 creatinine 1.23. D-dimer is normal 0.32. White count slightly elevated at 14 with a hemoglobin of 15.3. Patient received a dose of morphine for pain. Repeat examination finds the patient to continue to have pain. The patient is thrashing in the bed stating that his pain is worse. GI cocktail did not change his symptoms and he feels that it is not heartburn. Patient received 1 mg of Ativan and he states the pain is now not constant but he does have times where it comes back. I am not seeing evidence of pulmonary embolism or ACS. Does not seem to be gastric in nature his abdomen is benign. He has a normal mediastinal silhouette. He does not have symptoms above and below the diaphragm and therefore I do not think that this is dissection. I do not see pneumothorax pleural effusion this does not appear to be pleurisy. Given the above findings I will write the patient some pain medication as well as some anxiolytics in the form of diazepam which should help if this was muscular spasm in nature. History & Record Review Discussion w/independent historian: EMS personnel and Patient Additional record(s) reviewed:: Prior inpatient record, Prior ED visit and Prior labs Lab Data Attestation: I reviewed the patient's lab results. Labs: Laboratory Results - last 24 hr 06/03/23 06/03/23 08:40 10:55 WBC 14.0 H RBC 4.61 Hgb 15.3 Hct 44.3 MCV 96.1 H MCH 33.2 H MCHC 34.5 RDW Std Deviation 45.8 H RDW Coeff of Gaurav 12.8 Plt Count 293 MPV 9.8 Immature Gran % (Auto) 0.400 Neut % (Auto) 74.6 H Lymph % (Auto) 14.8 L Bee % (Auto) 5.5 Eos % (Auto) 4.0 Baso % (Auto) 0.7 Absolute Neuts (auto) 10.5 H Absolute Lymphs (auto) 2.08 Nucleated RBC % 0 D-Dimer Quant (PE/DVT) 0.32 Sodium 139 Potassium 4.3 Chloride 104 Carbon Dioxide 30.0 Anion Gap 5 BUN 15 Creatinine 1.23 Estim Creat Clear Calc 67.59 Est GFR (MDRD) Af Amer 78 Est GFR (MDRD) Non-Af 64 BUN/Creatinine Ratio 12.2 Glucose 98 Calcium 8.5 Troponin I High Sens 6 6 Radiography Diagnostic Testing: Clinical Impression(s) from Imaging Studies Chest X-Ray 06/03/23 08:55 IMPRESSION: No acute abnormality is seen. Electronically Signed: Mati Alvarez MD at 9:39 EDT , EKG Initial EKG: Attestation: I personally reviewed and interpreted this EKG as follows: Comments: Normal sinus rhythm ventricular rate of 95 bpm. No significant change from 29 March 2023 Prior EKG tracings: available for review Prior: Unchanged Differential Diagnosis Chest pain/SOB: pulmonary embolism, ACS, pneumothorax, pneumonia, aortic dissection, CHF and COPD Discharge Plan Triage Chief Complaint: Chest Pain ED Provider: Alverto Tanner Dx/Rx/DC Orders Clinical Impression: Chest pain, Essential hypertension, Type 2 diabetes mellitus, Coronary artery disease Instructions: ED Chest Pain, Uncertain Cause Prescriptions: New diazepam [diazepam] 5 mg tablet 5 mg PO Q8 PRN (Reason: Muscle Spasm) Qty: 15 0RF oxycodone-acetaminophen [oxycodone-acetaminophen] 5-325 mg tablet 1 tab PO Q6H PRN PRN (Reason: Pain) 3 Days Qty: 12 0RF No Action valacyclovir [Valtrex] 1 gram tablet 1,000 mg PO TID 10 Days Qty: 30 0RF amlodipine [Norvasc] 5 mg tablet 5 mg PO DAILY Qty: 30 0RF metoprolol tartrate 25 mg tablet 25 mg PO BID Qty: 60 0RF clopidogrel [Plavix] 75 mg tablet 75 mg PO DAILY Qty: 30 0RF metoprolol tartrate 25 mg tablet 25 mg PO BID Qty: 60 3RF clopidogrel [Plavix] 75 mg tablet 75 mg PO DAILY Qty: 30 3RF valacyclovir 1 gram tablet 1,000 mg PO TID Qty: 30 3RF amlodipine [Norvasc] 5 mg tablet 5 mg PO DAILY Qty: 30 3RF clopidogrel [Plavix] 75 mg tablet 75 mg PO DAILY Qty: 30 0RF Primary Care Provider: Care Physician,No Primary Referrals: Care Physician,No Primary [Primary Care Provider] - Activity Restrictions/Additional Instructions: I strongly urged you to follow-up with primary care. Not only for this but also for your chronic medical problems and medication refills. You should have a name listed on your Medicaid card that is assigned as your primary care doctor. Disposition Disposition: Home, Self Care
[2023-06-03 09:13] LABS: Absolute Lymphocyte Count 2.08 X10^3/uL (0.83-4.51); Absolute Neutrophil Count 10.5 X10^3/uL (2.0-7.7); Basophil% 0.7 % (0-1); Eosinophil# 0.56 X10^3/uL; Hematocrit 44.3 % (40-54); Hemoglobin 15.3 g/dL (13.0-16.5); Lymphocyte # 2.08 X10^3/ul (0.83-4.51); Lymphocyte % 14.8 % (19-41); Mean Corp Hgb Conc 34.5 g/dL (32-36); Mean Corpuscular Hgb 33.2 pg (27.0-32.0); Mean Corpuscular Volume 96.1 fL (80-94); Mean Platelet Vol. 9.8 fl (6.2-12.0); Monocyte# 0.77 X10^3/uL; Monocyte% 5.5 % (0-10); NRBC Flagged by Analyzer 0 % (0-5); Neutrophil # 10.47 X10^3/uL (2.7-7.7); Neutrophil % 74.6 % (47-70); Platelet Count 293 K/mm3 (150-450); RBC Distribution Width CV 12.8 % (11.6-14.6); RBC Distribution Width SD 45.8 fl (35.1-43.9); Red Blood Count 4.61 M/mm3 (4.6-6.2)
[2023-06-03] MEDS: Morphine 4 MG/ML Syringe IV (09:14)
--- NOTE | 2023-06-03 09:21 | ED.RN ---
PT MEDICATED PER EMS STUDENT. PT BECOMES NAUSEATED. ALCOHOL PREP PAD GIVEN. NAUSEA LESSENED
[2023-06-03 09:30] LABS: Anion Gap 5 (5-15); BUN 15 mg/dL (7-18); BUN/Creat Ratio 12.2 RATIO (10-20); Calcium,Total 8.5 mg/dL (8.5-10.1); Chloride 104 mmol/L (98-107); Creatinine, Serum 1.23 mg/dL (0.70-1.30); EST Glomerular Filtration Rate 64 mL/min (>60); Est Glom Filt Rate - Afr Amer 78 mL/min (>60); Estimated Creatinine Clearance 67.59 ml/min; Glucose 98 mg/dL (74-106); Potassium 4.3 mmol/L (3.5-5.1); Sodium Level 139 mmol/L (136-145); Troponin-I HS (w/2H Reflex) 6 pg/mL (3.0-78.0)
[2023-06-03 09:32] LABS: D-Dimer Quantitative (DVT/PE) 0.32 FEU/ug/m (0.27-0.49)
[2023-06-03 11:08] LABS: Reflex Troponin-HS? (from REC) Y
[2023-06-03 11:26] LABS: Troponin-I HS 6 pg/mL (3.0-78.0)
--- NOTE | 2023-06-03 11:34 | EKG12_ITS ---
Test Reason : Blood Pressure : / mmHG Vent. Rate : 090 BPM Atrial Rate : 090 BPM P-R Int : 144 ms QRS Dur : 080 ms QT Int : 354 ms P-R-T Axes : 061 072 079 degrees QTc Int : 433 ms Normal sinus rhythm Normal ECG Confirmed by JULIO GRIGSBY, BRIT ([id number]), field map editor REMBERTO MONTERO ([id number]) on 06/07/2023 10:29:18 AM Referred By: Confirmed By:DEB KIM MD
--- NOTE | 2023-06-03 11:35 | ED.RN ---
PT RINGS OUT STATING PAIN IS MUCH WORSE. DR GARCIA
[2023-06-03] MEDS: Mag Hydrox/Al Hydrox/Simeth 30 ML UDC PO (11:43)
[2023-06-03] MEDS: LORazepam 2 MG/ML Syringe 1 MG IV (12:38)
== END 2023-06-03 15:00 | disposition home or self-care (01) ==
PROVIDERS: Emergency Provider Emergency Medicine; Visit Provider Emergency Medicine
DX: R07.9 Chest pain, unspecified (principal); E11.9 Type 2 diabetes mellitus without complications; I10 Essential (primary) hypertension; I25.10 Atherosclerotic heart disease of native coronary artery without angina pectoris; F17.210 Nicotine dependence, cigarettes, uncomplicated; Z79.01 Long term (current) use of anticoagulants; Z79.899 Other long term (current) drug therapy; Z95.5 Presence of coronary angioplasty implant and graft
CPT/HCPCS: 71045; 80048; 84484; 85025; 85379; 93005; 96374; 96375; 99284; A4216